=== PATIENT | female | born 1995 | race Caucasian/White ===

== ENCOUNTER 2020-06-10 07:46 | Emergency (ER) | payer OTHER, SELFPAY ==
--- NOTE | 2020-06-10 08:52 | ED.ALLEREA ---
HPI - Allergic Reaction General Chief complaint: Allergic Reaction Stated complaint: allergic reaction Time Seen by Provider: 06/10/20 08:33 Source: patient Mode of arrival: ambulatory Limitations: no limitations History of Present Illness HPI narrative: no known exposures but developed swelling of eyes and upper lip last night took a bendaryl and the eye swelling remains, no resp issus, no swallowing issues MD complaint: facial swelling Onset (ago): hour(s) (last night) Exposure: unknown Symptoms: facial swelling and lip swelling Severity: mild Treatment prior to arrival: benadryl Previous Allergic Reaction History: none Related Data Home Medications Medication Instructions Recorded Confirmed albuterol sulfate mg INHALATION 04/14/20 04/14/20 albuterol sulfate 90 mcg/actuation 2 puff INHALATION Q4H PRN 04/14/20 04/14/20 aerosol inhaler cetirizine 10 mg tablet 10 mg PO DAILY 04/14/20 04/14/20 fluticasone propionate 110 INHALATION 04/14/20 04/14/20 mcg/actuation HFA aerosol inhaler norelgestromin 150 mcg-e.estradiol 1 patch TOPICAL QWEEK 04/14/20 04/14/20 35 mcg/24 hr weekly transderm patch Previous Rx's Medication Instructions Recorded meloxicam 15 mg tablet 15 mg PO DAILY #10 tab 04/14/20 famotidine [Pepcid] 20 mg PO DAILY PRN #30 tab 06/10/20 prednisone 40 mg PO DAILY 4 Days #8 tab 06/10/20 Allergies Allergy/AdvReac Type Severity Reaction Status Date / Time shellfish derived Allergy Severe ANAPHYLAXIS Verified 06/10/20 09:00 amoxicillin [AMOXICILLIN] Allergy Mild RASH Verified 06/10/20 09:00 nut - unspecified [nut] Allergy Unknown + ALLERGY Verified 06/10/20 09:00 TEST cats Allergy Unknown Unknown Uncoded 06/10/20 09:00 dogs Allergy Unknown Unknown Uncoded 06/10/20 09:00 enviromental Allergy Unknown Unknown Uncoded 06/10/20 09:00 nuts Allergy Unknown Unknown Uncoded 06/10/20 09:00 shellfish Allergy Unknown anaphylaxis Uncoded 07/13/19 00:00 Review of Systems Review of Systems: Constitutional : No Fever, No Chills ENT/Mouth : positive mild lip swelling, No Hoarseness, No Swallowing Difficulty Eyes: No Eye Pain, pos Swelling, No Redness Cardiovascular : No Chest Pain, No SOB Respiratory : No Cough, No Sputum, No Wheezing, No Smoke Exposure, No Dyspnea Gastrointestinal : No Nausea, No Vomiting, No Diarrhea, No abdominal Pain Genitourinary : No Dysuria, No Urinary Frequency, No Hematuria Musculoskeletal : No joint pain, No Myalgias, No Joint Swelling Skin : No Skin Lesions, no rash Neuro : No Weakness, No Numbness, No Headache Psych : No Anxiety/Panic, No Depression Heme/Lymph: No Bruising, No Lymphadenopathy Endocrine : No Polyuria, No Polydipsia All other systems reviewed and are negative [facility] Past Medical History Attestation statement: The following information was validated with the patient. Medical History Asthma Neck pain Social History Social History Smoking Status: Never smoker Physical Exam Vital Signs: Appearance: Alert. Oriented X3. No acute distress. Eyes: Pupils equal, round and reactive to light. mild swelling periorbital areas bilaterally ENT: Pharynx normal now intra oral swelling upper lip mildly swollen Neck: Normal inspection. Neck supple. CVS: Normal heart rate and rhythm. Pulses normal. Respiratory: No respiratory distress. Breath sounds normal. Abdomen: Soft and nontender. Skin: Skin warm and dry. Normal skin color. Normal skin turgor. No rash Extremities: No lower extremity edema. No calf ttp Neuro: Oriented X 3. No motor deficit. No sensory deficit. MDM - Allergic Reaction MDM Narrative Medical decision making narrative: 24 yo female with hx of asthma noted eye swelling and lip swelling last night - no known exposure, no resp issues took benadryl with no relief, at this time not toxic clear lungs, no intra oral swelling - will start on steroids and pepcid, given precautions to return Discharge Plan Discharge Clinical Impression: Allergic reaction Qualifiers: Encounter type: initial encounter Qualified Code(s): T78.40XA - Allergy, unspecified, initial encounter Patient Disposition: Home, Self-Care Instructions: Allergies (ED) Additional Instructions: return to ED for any worsening symptoms or concerns Prescriptions: New prednisone 20 mg tablet 40 mg PO DAILY 4 Days Qty: 8 RF: 0 famotidine [Pepcid] 20 mg tablet 20 mg PO DAILY PRN (Reason: Allergic Symptoms) Qty: 30 RF: 0 No Action albuterol sulfate 2.5 mg /3 mL (0.083 %) solution for nebulization inhalation RF: 0 Flovent HFA 110 mcg/actuation HFA aerosol inhaler inhalation RF: 0 albuterol sulfate 90 mcg/actuation HFA aerosol inhaler 2 puff inhalation Q4H PRNRF: 0 cetirizine 10 mg tablet 10 mg PO DAILY RF: 0 Xulane 150-35 mcg/24 hr patch weekly 1 patch topical QWEEK RF: 0 meloxicam 15 mg tablet 15 mg PO DAILY Qty: 10 RF: 0 Stand Alone Forms: Work/School Release
[2020-06-10 08:57] VITALS: BP 133/78; PULSE 77; RESP 18; TEMP 36.4; O2SAT 99; BMI 40.9
[2020-06-10] MEDS: Famotidine 20 MG TABLET PO (09:05)
[2020-06-10] MEDS: predniSONE 20 MG TABLET 60 MG PO (09:06)
== END 2020-06-10 09:10 | disposition home or self-care (01) ==
LOC: HO.ED 09:02
PROVIDERS: Emergency Provider Emergency Medicine; PCP Internal Medicine
DX: T78.40XA Allergy, unspecified, initial encounter (principal); R22.0 Localized swelling, mass and lump, head; X58.XXXA Exposure to other specified factors, initial encounter; J45.909 Unspecified asthma, uncomplicated; Z79.899 Other long term (current) drug therapy
CPT/HCPCS: 99283

== ENCOUNTER 2020-07-05 10:44 | Outpatient (REF) | payer OTHER, SELFPAY | END 2020-07-05 10:45 | disposition home or self-care (01) | LOC: HO.LAB 10:44 | PROVIDERS: Visit Provider Nurse Practitioner Family | DX: J02.9 Acute pharyngitis, unspecified (principal); Z20.822 Contact with and (suspected) exposure to COVID-19 | CPT/HCPCS: 36415; 87071; 87147; U0003; U0005 ==

== ENCOUNTER 2020-07-05 10:51 | Outpatient (REF) | payer OTHER, SELFPAY ==
[2020-07-05 14:39] LABS: Monotest Negative (Negative)
[2020-07-06 05:12] LABS: EBV-VCA IgM Ab <36.00 U/mL
== END 2020-07-05 10:52 | disposition home or self-care (01) ==
LOC: HO.HMGCLDS 10:51
PROVIDERS: PCP Internal Medicine; Visit Provider Nurse Practitioner Family
DX: J02.9 Acute pharyngitis, unspecified (principal); Z01.84 Encounter for antibody response examination
CPT/HCPCS: 36415; 86308; 86664; 86665

== ENCOUNTER 2020-08-12 09:10 | Outpatient (REF) | payer OTHER, SELFPAY ==
[2020-08-16 10:23] LABS: TS Negative Control Passed; TS Panel A 0; TS Panel B 0; TS Positive Control Passed; TSpotTB Negative (SeeBelow)
== END 2020-08-12 09:11 | disposition home or self-care (01) ==
LOC: HO.HMGCLDS 09:10
PROVIDERS: PCP Internal Medicine; Visit Provider Nurse Practitioner Family
DX: Z02.1 Encounter for pre-employment examination (principal)
CPT/HCPCS: 36415; 86481

== ENCOUNTER 2020-09-14 16:11 | Emergency (ER) | payer OTHER, SELFPAY ==
[2020-09-14 16:20] VITALS: BP 131/63; PULSE 88; RESP 20; TEMP 36.8; O2SAT 100; BMI 39.6
--- NOTE | 2020-09-14 19:40 | PC.NURSE ---
pt left without being seen
== END 2020-09-14 19:55 | disposition left against medical advice (07) ==
PROVIDERS: Emergency Provider Emergency Medicine; PCP Internal Medicine
DX: R21 Rash and other nonspecific skin eruption (principal)
CPT/HCPCS: 99281; 99282

== ENCOUNTER 2020-09-17 11:49 | Emergency (ER) | payer OTHER, SELFPAY ==
--- NOTE | ~2020-09-17 | US_ITS ---
EXAMINATION: US PELVIS TRANSABDOMINAL US PELVIS TRANSVAGINAL US PELVIS OVARIAN DOPPLER CLINICAL INFORMATION: Pelvic pain. Rule out ovarian torsion. COMPARISON: CT abdomen and pelvis of 09/21/2009. TECHNIQUE: Real-time scanning of the pelvis is acquired via transabdominal and transvaginal approach. Dedicated color and spectral Doppler evaluation of the ovaries is acquired. FINDINGS: An anteverted uterus is normal in size measuring 8.6 x 4.0 x 4.8 cm in length (from fundus to the external cervical os), AP and transverse dimensions respectively. An intrauterine device is in place and appears to be in appropriate position. Endometrial stripe thickness is 0.9 cm. Myometrial echotexture is homogeneous. No focal myometrial mass. The ovaries could be identified only by transabdominal approach. Right ovary measures 2.9 x 1.5 x 2.1 cm. The left ovary measures 3.1 x 1.4 x 1.6 cm. On grayscale images the ovaries are normal in size and appearance. On color Doppler evaluation bilateral intraovarian normal-appearing arterial and venous blood flow is documented. There is no evidence of adnexal mass or free fluid. US/US pelvic ovarian doppler IMPRESSION: 1. No evidence of active ovarian torsion. Normal sonographic appearance of the ovaries at this time. 2. Intrauterine device appears to be in appropriate position.
--- NOTE | ~2020-09-17 | US_ITS ---
EXAMINATION: US PELVIS TRANSABDOMINAL US PELVIS TRANSVAGINAL US PELVIS OVARIAN DOPPLER CLINICAL INFORMATION: Pelvic pain. Rule out ovarian torsion. COMPARISON: CT abdomen and pelvis of 09/21/2009. TECHNIQUE: Real-time scanning of the pelvis is acquired via transabdominal and transvaginal approach. Dedicated color and spectral Doppler evaluation of the ovaries is acquired. FINDINGS: An anteverted uterus is normal in size measuring 8.6 x 4.0 x 4.8 cm in length (from fundus to the external cervical os), AP and transverse dimensions respectively. An intrauterine device is in place and appears to be in appropriate position. Endometrial stripe thickness is 0.9 cm. Myometrial echotexture is homogeneous. No focal myometrial mass. The ovaries could be identified only by transabdominal approach. Right ovary measures 2.9 x 1.5 x 2.1 cm. The left ovary measures 3.1 x 1.4 x 1.6 cm. On grayscale images the ovaries are normal in size and appearance. On color Doppler evaluation bilateral intraovarian normal-appearing arterial and venous blood flow is documented. There is no evidence of adnexal mass or free fluid. US/US pelvic complete IMPRESSION: 1. No evidence of active ovarian torsion. Normal sonographic appearance of the ovaries at this time. 2. Intrauterine device appears to be in appropriate position.
--- NOTE | ~2020-09-17 | US_ITS ---
EXAMINATION: US PELVIS TRANSABDOMINAL US PELVIS TRANSVAGINAL US PELVIS OVARIAN DOPPLER CLINICAL INFORMATION: Pelvic pain. Rule out ovarian torsion. COMPARISON: CT abdomen and pelvis of 09/21/2009. TECHNIQUE: Real-time scanning of the pelvis is acquired via transabdominal and transvaginal approach. Dedicated color and spectral Doppler evaluation of the ovaries is acquired. FINDINGS: An anteverted uterus is normal in size measuring 8.6 x 4.0 x 4.8 cm in length (from fundus to the external cervical os), AP and transverse dimensions respectively. An intrauterine device is in place and appears to be in appropriate position. Endometrial stripe thickness is 0.9 cm. Myometrial echotexture is homogeneous. No focal myometrial mass. The ovaries could be identified only by transabdominal approach. Right ovary measures 2.9 x 1.5 x 2.1 cm. The left ovary measures 3.1 x 1.4 x 1.6 cm. On grayscale images the ovaries are normal in size and appearance. On color Doppler evaluation bilateral intraovarian normal-appearing arterial and venous blood flow is documented. There is no evidence of adnexal mass or free fluid. US/US transvaginal IMPRESSION: 1. No evidence of active ovarian torsion. Normal sonographic appearance of the ovaries at this time. 2. Intrauterine device appears to be in appropriate position.
[2020-09-17 12:08] VITALS: BP 121/87; PULSE 85; RESP 12; TEMP 36.9; O2SAT 97; BMI 41.3
[2020-09-17 12:42] LABS: Glucose Urine UA NEG (NEG); Leukocyte Esterase Urine NEG (NEG); Nitrite Urine NEG (NEG); PH 6.5 (5.0-8.0); Specific Gravity - Urine 1.015 (1.005-1.025); Urine Blood TRACE (NEG); Urine Ketones NEG (NEG); Urine Protein NEG (NEG-TRACE)
[2020-09-17 12:43] LABS: Appearance Urine HAZY; Color Urine YELLOW
[2020-09-17 12:44] LABS: UPreg QC Valid YES; Urine Pregnancy NEGATIVE (NEGATIVE)
[2020-09-17 13:00] LABS: RBC Urine 0-2 /HPF (0); Squamous Epithelial Cell Urine TRACE /LPF; WBC Urine 0-2 /HPF (0-4)
[2020-09-17 13:01] LABS: Amorphous Sediment Urine 1+ /LPF; Mucus Urine 1+ /LPF
--- NOTE | 2020-09-17 14:00 | ED_ITS ---
HPI - Abdominal Pain General Chief Complaint: Abdominal Pain Stated Complaint: abd pain Time Seen by Provider: 09/17/20 13:59 Source: patient Mode of arrival: ambulatory Limitations: no limitations History of Present Illness HPI narrative: 24-year-old female below noted past medical history presenting today with complaint of states she has had pelvic pain over the suprapubic region for the past several days states there is no vaginal bleeding. States she has family history of ovarian cyst and she is concerned she may have this, additionally else over the past couple days she has noticed some yellowish vaginal discharge without any itching or smell. States she is in a monogamous relationship and she has no concern for STI. She denies any abdominal pain, nausea, vomiting, diarrhea or dysuria. MD elicited complaint: other (Pelvic pain) Pertinent past history: none Location: suprapubic Severity: mild Quality: aching Migration to: no migration Exacerbating factors: nothing Relieving factors: nothing Treatments prior to arrival: other (Has not tried anything) Related Data Home Medications Medication Instructions Recorded Confirmed albuterol sulfate mg INHALATION 04/14/20 04/14/20 albuterol sulfate 90 mcg/actuation 2 puff INHALATION Q4H PRN 04/14/20 04/14/20 aerosol inhaler cetirizine 10 mg tablet 10 mg PO DAILY 04/14/20 04/14/20 fluticasone propionate 110 INHALATION 04/14/20 04/14/20 mcg/actuation HFA aerosol inhaler norelgestromin 150 mcg-e.estradiol 1 patch TOPICAL QWEEK 04/14/20 04/14/20 35 mcg/24 hr weekly transderm patch Previous Rx's Medication Instructions Recorded meloxicam 15 mg tablet 15 mg PO DAILY #10 tab 04/14/20 metronidazole [Flagyl] 500 mg PO BID #14 tab 09/17/20 Allergies Allergy/AdvReac Type Severity Reaction Status Date / Time shellfish derived Allergy Severe ANAPHYLAXIS Verified 09/17/20 12:14 amoxicillin [AMOXICILLIN] Allergy Mild RASH Verified 09/17/20 12:14 nut - unspecified [nut] Allergy Unknown + ALLERGY Verified 09/17/20 12:14 TEST cats Allergy Unknown Unknown Uncoded 09/17/20 12:14 dogs Allergy Unknown Unknown Uncoded 09/17/20 12:14 enviromental Allergy Unknown Unknown Uncoded 09/17/20 12:14 nuts Allergy Unknown Unknown Uncoded 09/17/20 12:14 shellfish Allergy Unknown anaphylaxis Uncoded 09/17/20 12:14 Review of Systems Review of Systems Constitutional: No Weight loss, No Fever, No Chills, No Night Sweats, No Fatigue, No Malaise ENT/Mouth: No Hearing loss, No Ear Pain, No Nasal Congestion, No Sinus Pain, No Hoarseness, No sore throat, No Rhinorrhea, No Swallowing Difficulty Eyes: No Eye Pain, No Swelling, No Redness, No Foreign Body, No Discharge, No Vision Changes Cardiovascular: No Chest Pain, No SOB, No Dyspnea on Exertion, No Orthopnea, No Edema, No Palpitations Respiratory: No Cough, No Sputum, No Wheezing, No Smoke Exposure, No Dyspnea Gastrointestinal: No Nausea, No Vomiting, No Diarrhea, No Constipation, No abdominal Pain, No Hematochezia, No Melena Genitourinary: As noted per HPI, No Flank Pain, No Urinary Flow Changes, No Hesitancy Musculoskeletal: No joint pain, No Myalgias, No Joint Swelling Skin: No Skin Lesions, No rash Neuro: No Weakness, No Numbness, No Paresthesias, No Loss of Consciousness, No Dizziness, No Headache Psych: No Anxiety/Panic, No Depression, No SI/HI/AH/VH, No Social Issues Heme/Lymph: No Bruising, No Bleeding,No Lymphadenopathy Endocrine: No Polyuria, No Polydipsia, No Temperature Intolerance Yes all other systems are reviewed and are negative Physical Exam Vital Signs: Vital Signs: Last Vital Signs Temp 98.3 F 09/17/20 16:21 Pulse 81 09/17/20 16:21 Resp 18 09/17/20 16:21 BP 134/87 09/17/20 16:21 Pulse Ox 99 09/17/20 16:21 Body Mass Index 41.3 Reviewed Const: Other: Patient's primary RN was present to assist me/chaperoned me doing a pelvic exam to obtain swabs. General: cooperative and healthy appearing; No acute distress or intoxicated appearing Nutritional Appearance: average body habitus Orientation/consciousness: patient oriented x3 HENMT: Head: Yes normal to inspection Ears: hearing grossly normal bilaterally Eyes: General: appearance normal, both eyes and all related structures Visual Gray: normal visual gray by confrontation Neck: Neck: Yes normal visual inspection, No positive Brudzinski's sign, No po sitive Kernig's sign and No tender Thyroid: Thyroid normal Chest: Chest palpation & inspection: normal inspection of the chest Resp: Effort & Inspection: normal respiratory effort Auscultation: clear to auscultation bilaterally Cardio: Jugular venous distension: no JVD Rhythm: regular rhythm Heart sounds: S1 normal heart sound present and S2 normal heart sound present GI: Inspection: Yes normal to inspection Palpation (GI): Soft to palpation Percussion: Yes normal to percussion Auscultation: normal bowel sounds : Other: No cervical motion tenderness Swabs obtained. General: Yes no CVA tenderness Speculum Exam - Vagina: normal palpation and other (Scant/mucousy/yellowish discharge in the vaginal vault. No TTP.) Speculum Exam - Cervix: normal appearance of the cervix and normal palpation Bimanual exam- vagina & uterus: normal palpation and normal palpation Back/Spine/Pelvis: Back: no CVA tenderness Skin: General skin exam: no rashes or lesions noted Neuro: General: patient oriented x3 Extrem: General: Yes normal to inspection Course Course Course Narrative: AP an exam consistent with BV. CT NG swabs obtained she declined empiric treatment would like to wait for results. Given dose of Diflucan here 150 mg. Will discharge home with Flagyl p.o. she declined vaginal cream prefers pills. Will give her Flagyl 500 mg 1 tab b.i.d. for 7 days. Advised to abstain from any further sexual activity until she gets the results if she does not hear from us in 3 days she can contact her primary care to get the results of her testing. She should go to her linesperson for full panel STI testing and further monitoring and treatment. She verbalized understanding. She is overall nontoxic appearing. Vitals are stable. Labs are overall stable. No evidence of PID. Stable for discharge. MDM - Abdominal Pain Lab Data Result diagrams: 09/17/20 15:22 09/17/20 15:22 Labs: Lab Results 09/17/20 09/17/20 09/17/20 Range/Units 12:23 12:23 15:22 WBC 9.4 (4.8-10.8) X10*3/uL RBC 4.88 (4.20-5.50) X10*6/uL Hgb 14.7 (12.0-16.0) g/dl Hct 44.2 (37-47) % MCV 90.6 (80-98) fL MCH 30.1 (27.0-33.0) pg MCHC 33.3 (31.0-35.0) g/dl RDW 12.4 (11.0-16.0) % Plt Count 426 H (160-400) X10*3/uL MPV 9.0 L (9.4-12.3) fL Immature Gran % (Auto) 0.3 (0.0-0.4) % Neut % (Auto) 51.8 (45-73) % Lymph % (Auto) 26.5 (20-40) % [place] % (Auto) 8.8 (2-11) % Eos % (Auto) 12.3 H (0-4) % Baso % (Auto) 0.3 (0-2) % Lymph # (Auto) 2.5 (1.2-4.9) X10*3/uL [place] # (Auto) 0.8 (0.1-1.2) X10*3/uL Eos # (Auto) 1.2 H (0.0-0.4) X10*3/uL Baso # (Auto) 0.0 (0.0-0.2) X10*3/uL Abs Immat Gran (auto) 0.03 (0.00-0.03) X10*3/uL Absolute Neuts (auto) 4.9 (2.0-8.3) X10*3/uL Absolute Nucleated RBC 0.000 (0.0-0.012) X10*3/uL Nucleated RBC % (auto) 0.0 (0.0-0.2) /100WBC Sodium (135-145) mmol/L Potassium (3.3-5.1) mmol/L Chloride (96-108) mmol/L Carbon Dioxide (22-29) mmol/L Anion Gap (12-20) BUN (9-16) mg/dL Creatinine (0.5-1.4) mg/dL Estim Creat Clear Calc Estimated GFR Random Glucose (60-115) mg/dL Calcium (8.4-10.2) mg/dL Total Bilirubin (0.0-1.0) mg/dL AST (5-31) U/L ALT (0-31) U/L Alkaline Phosphatase (39-117) U/L Total Protein (6.5-8.0) g/dL Albumin (3.5-5.0) g/dL Urine Color YELLOW Urine Appearance HAZY Urine pH 6.5 (5.0-8.0) Ur Specific [place] 1.015 (1.005-1.025) Urine Protein NEG (NEG-TRACE) MG/DL Urine Glucose (UA) NEG (NEG) MG/DL Urine Ketones NEG (NEG) MG/DL Urine Blood TRACE (NEG) Urine Nitrite NEG (NEG) Ur Leukocyte Esterase NEG (NEG) Urine RBC 0-2 (0) /HPF Urine WBC 0-2 (0-4) /HPF Ur Squamous Epith Cells TRACE /LPF Amorphous Sediment 1+ /LPF Urine Bacteria Not Reportable Urine Mucus 1+ /LPF Urine Test NEGATIVE (NEGATIVE) 09/17/20 Range/Units 15:22 WBC (4.8-10.8) X10*3/uL RBC (4.20-5.50) X10*6/uL Hgb (12.0-16.0) g/dl Hct (37-47) % MCV (80-98) fL MCH (27.0-33.0) pg MCHC (31.0-35.0) g/dl RDW (11.0-16.0) % Plt Count (160-400) X10*3/uL MPV (9.4-12.3) fL Immature Gran % (Auto) (0.0-0.4) % Neut % (Auto) (45-73) % Lymph % (Auto) (20-40) % [place] % (Auto) (2-11) % Eos % (Auto) (0-4) % Baso % (Auto) (0-2) % Lymph # (Auto) (1.2-4.9) X10*3/uL [place] # (Auto) (0.1-1.2) X10*3/uL Eos # (Auto) (0.0-0.4) X10*3/uL Baso # (Auto) (0.0-0.2) X10*3/uL Abs Immat Gran (auto) (0.00-0.03) X10*3/uL Absolute Neuts (auto) (2.0-8.3) X10*3/uL Absolute Nucleated RBC (0.0-0.012) X10*3/uL Nucleated RBC % (auto) (0.0-0.2) /100WBC Sodium 141 (135-145) mmol/L Potassium 4.2 (3.3-5.1) mmol/L Chloride 104 (96-108) mmol/L Carbon Dioxide 26 (22-29) mmol/L Anion Gap 15 (12-20) BUN 10 (9-16) mg/dL Creatinine 0.64 (0.5-1.4) mg/dL Estim Creat Clear Calc 131.6 Estimated GFR > 60 Random Glucose 73 (60-115) mg/dL Calcium 9.8 (8.4-10.2) mg/dL Total Bilirubin 0.3 (0.0-1.0) mg/dL AST 19 (5-31) U/L ALT 35 H (0-31) U/L Alkaline Phosphatase 93 (39-117) U/L Total Protein 7.8 (6.5-8.0) g/dL Albumin 4.5 (3.5-5.0) g/dL Urine Color Urine Appearance Urine pH (5.0-8.0) Ur Specific [place] (1.005-1.025) Urine Protein (NEG-TRACE) MG/DL Urine Glucose (UA) (NEG) MG/DL Urine Ketones (NEG) MG/DL Urine Blood (NEG) Urine Nitrite (NEG) Ur Leukocyte Esterase (NEG) Urine RBC (0) /HPF Urine WBC (0-4) /HPF Ur Squamous Epith Cells /LPF Amorphous Sediment /LPF Urine Bacteria Urine Mucus /LPF Urine Test (NEGATIVE) Imaging Data Pelvic/ovarian Doppler: Radiologist's impression: [address] [id number] ReportSigned Patient: Crys Medel [facility]#: [id number]: 1995Acct: [id number]/Sex: 24 / FADM Date: 09/17/20Loc: [address]: Ordering Physician: Clayton Owusu NP Date of Service: 09/17/20 Procedure(s): US pelvic ovarian doppler Accession Number(s): [id number] cc: OwusuClayton [facility] [employer]~ EXAMINATION: US PELVIS TRANSABDOMINAL US PELVIS TRANSVAGINAL US PELVIS OVARIAN DOPPLER CLINICAL INFORMATION: Pelvic pain. Rule out ovarian torsion. COMPARISON: CT abdomen and pelvis of 09/21/2009. TECHNIQUE: Real-time scanning of the pelvis is acquired via transabdominal and transvaginal approach. Dedicated color and spectral Doppler evaluation of the ovaries is acquired. FINDINGS: An anteverted uterus is normal in size measuring 8.6 x 4.0 x 4.8 cm in length (from fundus to the external cervical os), AP and transverse dimensions respectively. An intrauterine device is in place and appears to be in appropriate position. Endometrial stripe thickness is 0.9 cm. Myometrial echotexture is homogeneous. No focal myometrial mass. The ovaries could be identified only by transabdominal approach. Right ovary measures 2.9 x 1.5 x 2.1 cm. The left ovary measures 3.1 x 1.4 x 1.6 cm. On grayscale images the ovaries are normal in size and appearance. On color Doppler evaluation bilateral intraovarian normal-appearing arterial and venous blood flow is documented. There is no evidence of adnexal mass or free fluid. US/US pelvic ovarian doppler IMPRESSION: 1. No evidence of active ovarian torsion. Normal sonographic appearance of the ovaries at this time. 2. Intrauterine device appears to be in appropriate position. Dictated By:STEWART RIVERA MDSigned By:<Electronically signed by STEWART RIVERA MD in OV>09/17/20 1557 DD/ 1407TD/TT: Quality Audit Representative: AP Discharge Plan Discharge Clinical Impression: Vaginitis Patient Disposition: Home, Self-Care Instructions: Bacterial Vaginosis (ED) Additional Instructions: Your blood work was overall okay Urine test did not show any evidence of infection Her test was negative Your ultrasound did not show any evidence of ovarian cyst, torsion and shows that the IUD was in proper place. You need to Take the full course of antibiotic as she was prescribed Although our suspicions are low for STD as you indicate, you have declined to get empirically (treatment before the results) treated and elected to await the results of your vaginal swabs. This may take 2-3 days to result we will call you with the results only if positive and start you on additional antibiotics if we need to. In the meantime drink plenty of fluids take the full course of the medication as prescribed. 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 Follow up with her primary doctor that Thank you Prescriptions: New metronidazole [Flagyl] 500 mg tablet 500 mg PO BID Qty: 14 RF: 0 No Action albuterol sulfate 2.5 mg /3 mL (0.083 %) solution for nebulization inhalation RF: 0 Flovent HFA 110 mcg/actuation HFA aerosol inhaler inhalation RF: 0 albuterol sulfate 90 mcg/actuation HFA aerosol inhaler 2 puff inhalation Q4H PRNRF: 0 cetirizine 10 mg tablet 10 mg PO DAILY RF: 0 Xulane 150-35 mcg/24 hr patch weekly 1 patch topical QWEEK RF: 0 meloxicam 15 mg tablet 15 mg PO DAILY Qty: 10 RF: 0 Referrals: Antoni Pate MD [Primary Care Provider] - 5 days Interventions: ED Discharge Assessment Last Done: 09/17/20 16:37 Discharge Date/Time: 09/17/20 16:44 [facility] Past Medical History Medical History Asthma Neck pain Social History Social History Alcohol intake: never Smoking Status: Never smoker Use of substances other than those prescribed or required for medical reasons: No Advance Directives: No Advance Directives Information Provided: No
--- NOTE | 2020-09-17 14:08 | PC.NURSE ---
patient a&ox3, c/o 03/05 pelvic area pain, pt states she has never had this pain in the past, denies n/v, awaiting provider, urine completed in triage, will continue to monitor.
[2020-09-17 15:38] LABS: MANUAL DIFF FLAG NO
[2020-09-17 15:41] LABS: Basophils Percent Auto 0.3 % (0-2); Eosinophils Absolute Auto 1.2 X10*3/uL (0.0-0.4); Eosinophils Percent Auto 12.3 % (0-4); Hematocrit 44.2 % (37-47); Hemoglobin 14.7 g/dl (12.0-16.0); Imm Gran Abs Auto 0.03 X10*3/uL (0.00-0.03); Imm Gran Pct Auto 0.3 % (0.0-0.4); Lymphocytes Absolute Auto 2.5 X10*3/uL (1.2-4.9); Lymphocytes Percent Auto 26.5 % (20-40); Mean Corpuscular HGB Conc 33.3 g/dl (31.0-35.0); Mean Corpuscular Hemoglobin 30.1 pg (27.0-33.0); Mean Corpuscular Volume 90.6 fL (80-98); Monocytes Absolute Auto 0.8 X10*3/uL (0.1-1.2); Monocytes Percent Auto 8.8 % (2-11); Neutrophils Absolute Auto 4.9 X10*3/uL (2.0-8.3); Neutrophils Percent Auto 51.8 % (45-73); Platelet Count 426 X10*3/uL (160-400); Red Blood Count 4.88 X10*6/uL (4.20-5.50); Red Cell Distribution Width 12.4 % (11.0-16.0); White Blood Count 9.4 X10*3/uL (4.8-10.8)
[2020-09-17 16:02] LABS: Alanine Aminotransferase 35 U/L (0-31); Albumin Level 4.5 g/dL (3.5-5.0); Alkaline Phosphatase 93 U/L (39-117); Anion Gap 15 (12-20); Aspartate Amino Transferase 19 U/L (5-31); Bilirubin Total 0.3 mg/dL (0.0-1.0); Blood Urea Nitrogen 10 mg/dL (9-16); Calcium 9.8 mg/dL (8.4-10.2); Carbon Dioxide 26 mmol/L (22-29); Chloride 104 mmol/L (96-108); Creatinine Clr Calc Pharmacy 131.6; Estimated Glomerular Filt Rate > 60; Glucose Random 73 mg/dL (60-115); Potassium 4.2 mmol/L (3.3-5.1); Sodium 141 mmol/L (135-145); Total Protein 7.8 g/dL (6.5-8.0)
--- NOTE | 2020-09-17 16:20 | PC.NURSE ---
this nurse assisted provider to do internal exam, swabs obtained and sent to lab, vss, will continue to monitor.
[2020-09-17 16:21] VITALS: BP 134/87; PULSE 81; RESP 18; TEMP 36.8; O2SAT 99
[2020-09-17] MEDS: Fluconazole 150 MG TABLET PO (16:42)
[2020-09-18 09:57] LABS: BV Int Neg Control Negative (Negative); BV Int Pos Control Positive (Positive)
[2020-09-18 10:38] LABS: CT PCR NOT DETECTED (Not Detect.); NG PCR NOT DETECTED (Not Detect.)
== END 2020-09-17 16:44 | disposition home or self-care (01) ==
PROVIDERS: Nurse Practitioner Primary Care; Emergency Provider Emergency Medicine; PCP Internal Medicine
DX: N76.0 Acute vaginitis (principal); R10.2 Pelvic and perineal pain
CPT/HCPCS: 36415; 76830; 76856; 80053; 81001; 81025; 85025; 87480; 87491; 87510; 87591; 87660; 93975; 99284

== ENCOUNTER 2021-04-06 14:07 | Outpatient (REF) | payer OTHER, SELFPAY ==
--- NOTE | ~2021-04-06 | XR_ITS ---
EXAMINATION: XR LUMBOSACRAL SPINE CLINICAL INFORMATION: Pain COMPARISON: None TECHNIQUE: Three views of the lumbosacral spine. FINDINGS: The vertebral bodies and posterior elements are normal. The disc spaces are preserved and the vertebral alignment is normal. The paraspinal soft tissues are normal. XR/XR lumbar spine 2-3V IMPRESSION: Unremarkable examination.
== END 2021-04-06 14:08 | disposition home or self-care (01) ==
LOC: HO.HMGCX 14:07
PROVIDERS: PCP Internal Medicine; Visit Provider Internal Medicine
DX: M54.50 Low back pain, unspecified (principal)
CPT/HCPCS: 72100

== ENCOUNTER 2021-05-04 13:00 | Outpatient (RCR) | payer OTHER, SELFPAY ==
--- NOTE | 2021-04-19 10:42 | MHC.PT.EP ---
[facility] [place] [facility] [place] [facility] [place] [facility] [address] Phyllis Garcia [address] [phone] F: [phone] F: [phone] F: [phone] F: [phone] Physical Therapy Plan of Care Date of Evaluation: Date of Surgery: NA Diagnosis: Chronic low back pain Assessment: Crys is a 25 year old female who was referred to PT chronic low back pain . She denies any trauma or falls. On examination she reports of having 6/10 pain in low back with forward bending, prolonged sitting and standing, presented with decreased lumbar ROM, decreased core strength and altered posture. She demonstrated centralization of symptoms with extension exercises. Due to these impairments she has pain with ADLS like mopping, vacuuming, laundry and playing with her daughter. She would benefit from skilled PT to address the aforementioned impairments so as to enable return to PLOF. Frequency and Duration: The patient will be seen 2/week for 5 weeks Short Term Goals: 1. Pt will have 50% decrease in pain in 2 weeks which will improve her tolerance to standing and sitting. 2. Pt will have all lumbar ROM WNL which will enable her to dress lower body in 3 weeks Long-Term Goals: 1. Pt will demonstrate an increase in muscle strength by 1 grade which will enable to perform her laundry in 4 weeks. 2. Pt will demonstrate good awareness of posture and body mechanics which will enable her to perform mopping and vacuuming without pain in 5 weeks. Treatment Plan: Modalities to reduce pain, spasms and effusion. Manual therapy to restore motion and function. Therapeutic exercise to improve strength and flexibility. Neuromuscular re-education for posture and balance. Therapeutic activities to return to functional activities of daily living. Electronically signed by: Glory Antonio PT DPT Please sign and return to therapist. Thank you for your referral.
--- NOTE | 2021-05-18 08:45 | MHC.PT.DC ---
[facility] [place] [facility] [place] [facility] [place] [facility] [address] Phyllis Garcia [address] [phone] F: [phone] F: [phone] F: [phone] F: [phone] Physical Therapy Discharge Report Diagnosis: Chronic low back pain Date of Surgery: NA Date of Evaluation: 04/19/21 Date of Discharge: 05/18/21 Treatments to Date: 4 Cancellations to Date: 2 No Shows to Date: 3 Discharge Status: Visit Non-compliance Discharge Summary: Crys has not come to PT in 2 weeks. She has had 2 cancellations and 3 no shows. Due to this she is being d/c from therapy for non compliance. Electronically signed by: Glory Antonio, PT DPT Please sign and return to therapist. Thank you for your referral.
== END 2021-05-18 08:48 | disposition home or self-care (01) ==
LOC: HO.PT 13:00
PROVIDERS: PCP Internal Medicine; Visit Provider Internal Medicine
DX: M54.50 Low back pain, unspecified (principal)
CPT/HCPCS: 97110; 97161; 97530

== ENCOUNTER 2021-05-25 10:42 | Emergency (ER) | payer OTHER, SELFPAY ==
--- NOTE | ~2021-05-25 | XR_ITS ---
EXAMINATION: XR CHEST CLINICAL INFORMATION: Fevers COMPARISON: 01/27/2020 TECHNIQUE: Frontal view of the chest was obtained. FINDINGS: No acute finding. No obvious failure or infiltrate. There is no effusion. Mildly low lung volumes. The cardiac silhouette is comparable to previous. The hilar structures are comparable XR/XR chest 1V IMPRESSION: No acute finding
--- NOTE | ~2021-05-25 | CT_ITS ---
EXAMINATION: CT ANGIOGRAM OF THE CHEST WITH AND WITHOUT CONTRAST (CT PULMONARY ANGIOGRAM FOR PE) CLINICAL INFORMATION: Reason for Exam sob, elevated dimer COMPARISON: Chest radiographs 05/25/2021 TECHNIQUE: Prior to contrast administration, noncontrast localization images were obtained. Subsequently, multidetector volumetric imaging was performed from the thoracic inlet to below the diaphragms following the administration of 71 mL Omnipaque 350 intravenous contrast. Sagittal, coronal, and MIP oblique sagittal reformatted images were obtained on the CT workstation, uploaded to PACS, and reviewed. This CT examination was performed using dose optimization techniques as appropriate, variously including the following: *Automated exposure control *Adjustment of mA and/or kV according to patient size (this includes techniques or standardized protocols for targeted exams where dose is matched to indication/reason for exam; i.e. extremities or head) *Use of iterative reconstruction technique Total exam dose-length product 425 mGy-cm FINDINGS: QUALITY OF STUDY/CONTRAST BOLUS: Satisfactory. PULMONARY ARTERIES: No central or segmental pulmonary emboli. THORACIC AORTA: No aneurysm or dissection. LUNG: Low lung volumes. No airspace consolidation or groundglass opacity. No mass or nodularity. Central airways are clear. No bronchiectasis. PLEURA: No pleural effusion or pneumothorax. MEDIASTINUM: Normal heart size. No pericardial effusion. No hilar or mediastinal lymphadenopathy. No evidence of septal bowing or right heart strain. CHEST WALL/AXILLA: No axillary or internal mammary lymphadenopathy. OSSEOUS STRUCTURES: No acute or suspicious osseous abnormality. Incidental intravertebral body hemangioma mid thoracic line, approximately T5. UPPER ABDOMEN: Prior cholecystectomy. No reflux of contrast into the hepatic veins to suggest elevated right heart pressures. CT/CT angio chest PE protocol IMPRESSION: 1. No pulmonary embolism. No thoracic aortic dissection. 2. Low lung volumes. No airspace consolidation, pneumothorax, or effusion. VTE: negative
[2021-05-25 10:59] VITALS: BP 141/85; PULSE 119; RESP 20; TEMP 37.7; O2SAT 98; BMI 41.8
--- NOTE | 2021-05-25 11:39 | ED.URI ---
HPI - URI/Sore Throat General Chief Complaint: Upper Respiratory Symptoms Stated Complaint: sob, cough Time Seen by Provider: 05/25/21 11:06 Source: patient Mode of arrival: ambulatory Limitations: no limitations History of Present Illness HPI Narrative: 25-year-old female who presents with shortness of breath and chest tightness. Patient has a history of asthma and takes oral control pills. Patient states that her symptoms of chest tightness started yesterday and she could only get 2 hours of sleep because her chest felt tight. She only had 2 nebulizer bullets left, she had run out of her prescription, she did use these, and they helped. She did not have an inhaler at home yesterday and she refilled her inhaler prescription today. States she also had chills last night, and she started coughing after the nebulizer treatment. Endorses body aches. Also endorses dysuria and UTI symptoms of increasing frequency and urgency. No hematuria, no vaginal discharge or bleeding. States she had called her PCP for prescription to treat a UTI on , but prescription was never filled. Denies nausea, vomiting, diarrhea, abdominal pain, sore throat, runny nose, headache. Denies unilateral calf pain or swelling, history of blood clots, recent surgeries or car trips Related Data Home Medications Medication Instructions Recorded Confirmed cetirizine 10 mg tablet 10 mg PO DAILY 04/14/20 04/14/20 norelgestromin 150 mcg-e.estradiol 1 patch TOPICAL QWEEK 04/14/20 04/14/20 35 mcg/24 hr weekly transderm patch Previous Rx's Medication Instructions Recorded albuterol sulfate 90 mcg/actuation 2 puff INHALATION Q4H PRN 30 Days 05/24/21 aerosol inhaler #8.5 g fluticasone propionate 110 2 inh INHALATION Q12H #12 g 05/24/21 mcg/actuation HFA aerosol inhaler albuterol sulfate 1.25 mg/3 mL 1.25 mg (3 mL) INHALATION Q4-6H 05/25/21 solution for nebulization PRN #90 ml cephalexin 500 mg tablet 500 mg PO QID 5 Days #20 tab 05/25/21 dexamethasone 6 mg tablet 6 mg PO DAILY 3 Days #3 tab 05/25/21 Allergies Allergy/AdvReac Type Severity Reaction Status Date / Time shellfish derived Allergy Severe ANAPHYLAXIS Verified 04/06/21 14:44 amoxicillin [AMOXICILLIN] Allergy Mild RASH Verified 04/06/21 14:44 nut - unspecified [nut] Allergy Unknown + ALLERGY Verified 04/06/21 14:44 TEST cats Allergy Unknown Unknown Uncoded 04/06/21 13:25 dogs Allergy Unknown Unknown Uncoded 04/06/21 13:25 enviromental Allergy Unknown Unknown Uncoded 04/06/21 13:25 nuts Allergy Unknown Unknown Uncoded 04/06/21 13:25 shellfish Allergy Unknown anaphylaxis Uncoded 04/06/21 13:25 Review of Systems Constitutional: Constitutional: Reports body ache(s), Reports chills, Reports fatigue, Reports fever(s), Denies headache(s), Denies malaise and Denies weakness Eyes: Eyes: Denies diplopia ENT: Denies vertigo, Denies dizziness, Denies otalgia, Denies headache(s), Denies mouth pain, Denies post nasal drip, Denies sinus pain, Denies sinus pressure, Denies sore throat and Denies throat swelling Cardiovascular: Cardiovascular: Denies chest pain, Denies syncope, Denies leg edema, Denies lightheadedness, Denies Loss of Consciousness, Denies palpitations, Reports dyspnea and Reports other (chest tightness) Respiratory: Respiratory: Denies chest congestion, Reports cough, Denies hemoptysis, Denies pain on inspiration, Denies pain with cough, Reports dyspnea, Denies stridor and Reports wheezing Gastrointestinal: Gastrointestinal: Denies abdominal pain, Denies hematochezia, Denies constipation, Denies diarrhea and Denies vomiting Genitourinary: Genitourinary: Denies abnormal vaginal bleeding, Denies hematuria, Reports dysuria, Denies pelvic pain, Denies flank pain, Denies urinary incontinence, Reports urinary urgency, Denies vaginal discharge, Denies vaginal odor and Denies vaginal pruritus Integumentary/Breasts: Skin/Breast: Denies erythema and Denies rash Neurologic: Denies confusion, Denies vertigo, Denies dizziness, Denies syncope, Denies headache(s) and Denies weakness Psychiatric: Psychiatric: Denies anxiety, Denies confusion and Denies depression Endocrine: Endocrine: Reports fatigue and Denies palpitations Allergic/Immunologic: Allergic/Immunologic: Denies throat swelling and Reports wheezing PMFSH Past Medical History Medical History Allergic rhinitis Anxiety Asthma Chronic low back pain Eczema Morbid obesity Neck pain Surgical History H/O cleft lip repair History of appendectomy Family History Family History Maternal Grandfather Alzheimer disease Paternal Grandmother Diabetes Other Mental health disorder Social History Social History Housing: House Alcohol intake: never Patient Tobacco Use Status: Never used Tobacco Second Hand Smoke Exposure: No Advance Directives: No Advance Directives Information Provided: No Patient : No Current occupational status: employed Physical Exam Vital Signs: Vital Signs: Last Vital Signs Temp 99.9 F 05/25/21 10:59 Pulse 110 H 05/25/21 12:47 Resp 16 05/25/21 16:38 BP 109/67 05/25/21 16:38 Pulse Ox 98 05/25/21 10:59 BMI result Body Mass Index 41.8 Const: General: no acute distress, well developed, alert and awake; No confusion Nutritional Appearance: well nourished Orientation/consciousness: patient oriented x3 and No confusion Limitations: no limitations HENMT: Head: Yes normal to inspection, Yes normocephalic and Yes atraumatic Ears: hearing grossly normal bilaterally, external ears normal, TM's normal bilaterally and EAC's normal General nose exam: Normal external nose present Face and sinus: Yes normal facial exam and Yes sinuses nontender Mouth: Normal oral and palatal mucosa present Throat: Yes posterior oropharynx normal Eyes: Conjunctivae: conjunctivae normal Pupils: Equal, round and reactive pupils present EOM: EOMs intact bilaterally Neck: Neck: Yes full ROM, Yes no lymphadenopathy and Yes supple Resp: Effort & Inspection: normal respiratory effort and able to speak in complete sentences Auscultation: clear to auscultation bilaterally, no crackles, no rales, no rhonchi and no wheezes Cardio: Rate: regular rate Rhythm: regular rhythm Heart sounds: S1 normal heart sound present and S2 normal heart sound present GI: Inspection: Yes normal to inspection Palpation (GI): Soft to palpation, nontender, no guarding and not rigid Percussion: Yes normal to percussion Auscultation: normal bowel sounds : General: Yes CVA tenderness on the left Back/Spine/Pelvis: Back: CVA tenderness Skin: General skin exam: no rashes or lesions noted Neuro: General: patient oriented x3 and No confusion Cranial nerves: Yes Equal, round and reactive pupils present Extrem: General: Yes normal to inspection and Yes full ROM Psych: Appearance: grossly normal Affect: normal affect Attitude: cooperative Thought process: Normal thought process present Course Course Course Narrative: 25-year-old female presents for shortness of breath, body aches, is found to be febrile here at 99.9. Patient is tachycardic at 119., has normal respirations and is satting 98% on room air. Patient also endorses UTI symptoms, and has CVA tenderness on the left Patient's shortness of breath could be due to asthma, but she is on oral control pills and I cannot PERC her out Will get labs, troponin, D-dimer, EKG, urine, COVID test. Patient has been vaccinated for COVID, has not had her booster. CXR: FINDINGS: No acute finding. No obvious failure or infiltrate. There is no effusion. Mildly low lung volumes. The cardiac silhouette is comparable to previous. The hilar structures are comparable XR/XR chest 1V IMPRESSION: No acute finding ? Reevaluation(s) Reevaluation #1: Labs show positive COVID, positive urine for UTI, negative troponin and EKG with no ischemic changes, D-dimer is elevated at 242 Will give fluids, give urine test, get CTA If CTA is negative, will treat for UTI and give COVID precautions Reevaluation #2: CT read at 17:45, results below. CT/CT angio chest PE protocol IMPRESSION: ? 1. No pulmonary embolism. No thoracic aortic dissection. 2. Low lung volumes. No airspace consolidation, pneumothorax, or effusion. ? VTE: negative Will treat with cephalexin for UTI, and counseled patient to return if she had worsening fevers or back pain, counseled patient to follow-up with her primary care provider. Out of work for 10 days, stay home, patient isolate, return to the emergency room for chest pain or shortness of breath. Use her albuterol inhaler. Dexamethasone Patient tells me her amoxicillin allergy was a rash, she did not have anaphylaxis to amoxicillin, keflex should be safe Patient verbalized agreement and understanding of the plan and all questions were answered MDM - URI/Sore Throat Lab Data Result diagrams: 05/25/21 12:40 05/25/21 12:40 Labs: Lab Results 05/25/21 05/25/21 05/25/21 Range/Units 12:27 12:28 12:40 WBC (4.8-10.8) X10*3/uL RBC (4.20-5.50) X10*6/uL Hgb (12.0-16.0) g/dl Hct (37.0-47.0) % MCV (80.0-98.0) fL MCH (27.0-33.0) pg MCHC (31.0-35.0) g/dl RDW (11.0-16.0) % Plt Count (160-400) X10*3/uL MPV (9.4-12.3) fL Immature Gran % (Auto) (0.0-0.4) % Neut % (Auto) (45-73) % Lymph % (Auto) (20-40) % [place] % (Auto) (2-11) % Eos % (Auto) (0-4) % Baso % (Auto) (0-2) % Lymph # (Auto) (1.2-4.9) X10*3/uL [place] # (Auto) (0.1-1.2) X10*3/uL Eos # (Auto) (0.0-0.4) X10*3/uL Baso # (Auto) (0.0-0.2) X10*3/uL Abs Immat Gran (auto) (0.00-0.03) X10*3/uL Absolute Neuts (auto) (2.0-8.3) x10*3/uL Absolute Nucleated RBC (0.0-0.012) X10*3/uL Nucleated RBC % (auto) (0.0-0.2) /100WBC D-Dimer High Sensitivty 242 NG/ML Sodium (135-145) mmol/L Potassium (3.3-5.1) mmol/L Chloride (96-108) mmol/L Carbon Dioxide (22-29) mmol/L Anion Gap (12-20) BUN (9-16) mg/dL Creatinine (0.5-1.4) mg/dL Estim Creat Clear Calc Estimated GFR Random Glucose (60-115) mg/dL Calcium (8.4-10.2) mg/dL Total Bilirubin (0.0-1.0) mg/dL AST (5-31) U/L ALT (0-31) U/L Alkaline Phosphatase (39-117) U/L Troponin I High Sens (<3.5-17.0) ng/L Total Protein (6.5-8.0) g/dL Albumin (3.5-5.0) g/dL Beta HCG, Quant mIU/mL Urine Color YELLOW Urine Appearance HAZY Urine pH 6.0 (5.0-8.0) Ur Specific [place] >= 1.030 H (1.005-1.025) Urine Protein NEG (NEG-TRACE) MG/DL Urine Glucose (UA) NEG (NEG) MG/DL Urine Ketones NEG (NEG) MG/DL Urine Blood 1+ H (NEG) Urine Nitrite NEG (NEG) Ur Leukocyte Esterase NEG (NEG) Urine RBC 0-2 (0) /HPF Urine WBC 15-29 H (0-4) /HPF Ur Squamous Epith Cells 2+ /LPF Urine Bacteria 4+ /LPF COVID-19 (CALEB) Positive A (Negative) COVID-19 Clin Com See Note 05/25/21 05/25/21 05/25/21 Range/Units 12:40 12:40 12:40 WBC 5.0 (4.8-10.8) X10*3/uL RBC 4.32 (4.20-5.50) X10*6/uL Hgb 13.2 (12.0-16.0) g/dl Hct 39.8 (37.0-47.0) % MCV 92.1 (80.0-98.0) fL MCH 30.6 (27.0-33.0) pg MCHC 33.2 (31.0-35.0) g/dl RDW 12.1 (11.0-16.0) % Plt Count 259 (160-400) X10*3/uL MPV 9.2 L (9.4-12.3) fL Immature Gran % (Auto) 0.6 H (0.0-0.4) % Neut % (Auto) 73.9 H (45-73) % Lymph % (Auto) 11.6 L (20-40) % [place] % (Auto) 13.3 H (2-11) % Eos % (Auto) 0.4 (0-4) % Baso % (Auto) 0.2 (0-2) % Lymph # (Auto) 0.6 L (1.2-4.9) X10*3/uL [place] # (Auto) 0.7 (0.1-1.2) X10*3/uL Eos # (Auto) 0.0 (0.0-0.4) X10*3/uL Baso # (Auto) 0.0 (0.0-0.2) X10*3/uL Abs Immat Gran (auto) 0.03 (0.00-0.03) X10*3/uL Absolute Neuts (auto) 3.7 (2.0-8.3) x10*3/uL Absolute Nucleated RBC 0.000 (0.0-0.012) X10*3/uL Nucleated RBC % (auto) 0.0 (0.0-0.2) /100WBC D-Dimer High Sensitivty NG/ML Sodium 138 (135-145) mmol/L Potassium 3.5 (3.3-5.1) mmol/L Chloride 106 (96-108) mmol/L Carbon Dioxide 25 (22-29) mmol/L Anion Gap 11 L (12-20) BUN 8 L (9-16) mg/dL Creatinine 0.68 (0.5-1.4) mg/dL Estim Creat Clear Calc 123.5 Estimated GFR > 60 Random Glucose 133 H (60-115) mg/dL Calcium 8.5 D (8.4-10.2) mg/dL Total Bilirubin 0.3 (0.0-1.0) mg/dL AST 16 (5-31) U/L ALT 27 (0-31) U/L Alkaline Phosphatase 82 (39-117) U/L Troponin I High Sens < 3.5 (<3.5-17.0) ng/L Total Protein 7.0 (6.5-8.0) g/dL Albumin 3.9 (3.5-5.0) g/dL Beta HCG, Quant mIU/mL Urine Color Urine Appearance Urine pH (5.0-8.0) Ur Specific [place] (1.005-1.025) Urine Protein (NEG-TRACE) MG/DL Urine Glucose (UA) (NEG) MG/DL Urine Ketones (NEG) MG/DL Urine Blood (NEG) Urine Nitrite (NEG) Ur Leukocyte Esterase (NEG) Urine RBC (0) /HPF Urine WBC (0-4) /HPF Ur Squamous Epith Cells /LPF Urine Bacteria /LPF COVID-19 (CALEB) (Negative) COVID-19 Clin Com 05/25/21 Range/Units 14:44 WBC (4.8-10.8) X10*3/uL RBC (4.20-5.50) X10*6/uL Hgb (12.0-16.0) g/dl Hct (37.0-47.0) % MCV (80.0-98.0) fL MCH (27.0-33.0) pg MCHC (31.0-35.0) g/dl RDW (11.0-16.0) % Plt Count (160-400) X10*3/uL MPV (9.4-12.3) fL Immature Gran % (Auto) (0.0-0.4) % Neut % (Auto) (45-73) % Lymph % (Auto) (20-40) % [place] % (Auto) (2-11) % Eos % (Auto) (0-4) % Baso % (Auto) (0-2) % Lymph # (Auto) (1.2-4.9) X10*3/uL [place] # (Auto) (0.1-1.2) X10*3/uL Eos # (Auto) (0.0-0.4) X10*3/uL Baso # (Auto) (0.0-0.2) X10*3/uL Abs Immat Gran (auto) (0.00-0.03) X10*3/uL Absolute Neuts (auto) (2.0-8.3) x10*3/uL Absolute Nucleated RBC (0.0-0.012) X10*3/uL Nucleated RBC % (auto) (0.0-0.2) /100WBC D-Dimer High Sensitivty NG/ML Sodium (135-145) mmol/L Potassium (3.3-5.1) mmol/L Chloride (96-108) mmol/L Carbon Dioxide (22-29) mmol/L Anion Gap (12-20) BUN (9-16) mg/dL Creatinine (0.5-1.4) mg/dL Estim Creat Clear Calc Estimated GFR Random Glucose (60-115) mg/dL Calcium (8.4-10.2) mg/dL Total Bilirubin (0.0-1.0) mg/dL AST (5-31) U/L ALT (0-31) U/L Alkaline Phosphatase (39-117) U/L Troponin I High Sens (<3.5-17.0) ng/L Total Protein (6.5-8.0) g/dL Albumin (3.5-5.0) g/dL Beta HCG, Quant < 2 mIU/mL Urine Color Urine Appearance Urine pH (5.0-8.0) Ur Specific [place] (1.005-1.025) Urine Protein (NEG-TRACE) MG/DL Urine Glucose (UA) (NEG) MG/DL Urine Ketones (NEG) MG/DL Urine Blood (NEG) Urine Nitrite (NEG) Ur Leukocyte Esterase (NEG) Urine RBC (0) /HPF Urine WBC (0-4) /HPF Ur Squamous Epith Cells /LPF Urine Bacteria /LPF COVID-19 ([facility]) (Negative) COVID-19 Clin Com ECG Data Interpretation: Sinus tachycardia 108, VA interval 142, QRS 92, QTC 410, normal axis, no ST elevations or depressions, no T-wave inversions, no changes from prior EKG Scores [place] PE Heart rate > 100 p/min: 1.5 Score: 1.5 2-tier Risk: unlikely risk (5%) 3-tier Risk: low risk (3.4%) Discharge Plan Discharge Clinical Impression: COVID-19 UTI (urinary tract infection) Qualifiers: Urinary tract infection type: acute cystitis Hematuria presence: without hematuria Qualified Code(s): N30.00 - Acute cystitis without hematuria Patient Disposition: Home, Self-Care Instructions: Urinary Tract Infection in Women (ED), COVID-19 (Coronavirus Disease 2019) (ED) Additional Instructions: You tested positive for COVID today, please stay home in quarantine. Please fill the prescription for cephalexin and take it every 6 hours for the next 5 days. If you have fevers or worsening back pain, these are signs of a kidney infection, you should return to be seen Please push fluids, take Tylenol, rest, use your nebulizer, use it every 4 hours while your awake for the next 2-4 days, I have also prescribed dexamethasone, this should help with her breathing as well. If you have chest pain or shortness of breath, please return to be seen in the emergency room Prescriptions: New albuterol sulfate 1.25 mg/3 mL solution for nebulization 1.25 mg inhalation Q4-6H PRN (Reason: shortness of breath or wheezing) Qty: 90 RF: 0 cephalexin 500 mg tablet 500 mg PO QID 5 Days Qty: 20 RF: 0 dexamethasone 6 mg tablet 6 mg PO DAILY 3 Days Qty: 3 RF: 0 No Action albuterol sulfate 90 mcg/actuation HFA aerosol inhaler 2 puff inhalation Q4H PRN (Reason: bronchospasm) 30 Days Qty: 8.5 RF: 0 fluticasone propionate 110 mcg/actuation HFA aerosol inhaler 2 inh inhalation Q12H Qty: 12 RF: 1 cetirizine 10 mg tablet 10 mg PO DAILY RF: 0 Xulane 150-35 mcg/24 hr patch weekly 1 patch topical QWEEK RF: 0 Stand Alone Forms: Work/School Release
--- NOTE | 2021-05-25 11:56 | ECG_ITS ---
Test Reason : SOB Blood Pressure : / mmHG Vent. Rate : 108 BPM Atrial Rate : 108 BPM P-R Int : 142 ms QRS Dur : 092 ms QT Int : 306 ms P-R-T Axes : 047 052 022 degrees QTc Int : 410 ms Sinus tachycardia Nonspecific T wave abnormality Abnormal ECG When compared with ECG of 02-AUG-2019 08:53, No significant change was found Referred By: Tamie Pearson Electronically Signed By:Wilfred Mariee
[2021-05-25] MEDS: Acetaminophen 325 MG TABLET 650 MG PO (12:24)
[2021-05-25] MEDS: predniSONE 20 MG TABLET 60 MG PO (12:25)
[2021-05-25 12:46] LABS: MANUAL DIFF FLAG NO
[2021-05-25 12:47] VITALS: PULSE 110; RESP 18; O2SAT 99
[2021-05-25] MEDS: Albuterol Sulfate 90 MCG 8 GM INHALER 2 PUFF INHALE (12:47)
[2021-05-25 12:48] LABS: Basophils Percent Auto 0.2 % (0-2); Eosinophils Percent Auto 0.4 % (0-4); Hematocrit 39.8 % (37.0-47.0); Hemoglobin 13.2 g/dl (12.0-16.0); Imm Gran Abs Auto 0.03 X10*3/uL (0.00-0.03); Imm Gran Pct Auto 0.6 % (0.0-0.4); Lymphocytes Absolute Auto 0.6 X10*3/uL (1.2-4.9); Lymphocytes Percent Auto 11.6 % (20-40); Mean Corpuscular HGB Conc 33.2 g/dl (31.0-35.0); Mean Corpuscular Hemoglobin 30.6 pg (27.0-33.0); Mean Corpuscular Volume 92.1 fL (80.0-98.0); Mean Platelet Volume 9.2 fL (9.4-12.3); Monocytes Absolute Auto 0.7 X10*3/uL (0.1-1.2); Monocytes Percent Auto 13.3 % (2-11); Neutrophils Absolute Auto 3.7 x10*3/uL (2.0-8.3); Neutrophils Percent Auto 73.9 % (45-73); Platelet Count 259 X10*3/uL (160-400); Red Blood Count 4.32 X10*6/uL (4.20-5.50); Red Cell Distribution Width 12.1 % (11.0-16.0)
[2021-05-25 12:52] LABS: Appearance Urine HAZY; Color Urine YELLOW; Glucose Urine UA NEG (NEG); Leukocyte Esterase Urine NEG (NEG); Nitrite Urine NEG (NEG); Specific Gravity - Urine >= 1.030 (1.005-1.025); UACC Culture Trigger NO; Urine Blood 1+ (NEG); Urine Ketones NEG (NEG); Urine Protein NEG (NEG-TRACE)
[2021-05-25 12:56] LABS: COVID-19 Test Positive (Negative)
[2021-05-25 12:58] LABS: D Dimer High Sensitivity 242 NG/ML
[2021-05-25 13:03] LABS: Alanine Aminotransferase 27 U/L (0-31); Albumin Level 3.9 g/dL (3.5-5.0); Alkaline Phosphatase 82 U/L (39-117); Anion Gap 11 (12-20); Aspartate Amino Transferase 16 U/L (5-31); Bilirubin Total 0.3 mg/dL (0.0-1.0); Blood Urea Nitrogen 8 mg/dL (9-16); Calcium 8.5 mg/dL (8.4-10.2); Carbon Dioxide 25 mmol/L (22-29); Chloride 106 mmol/L (96-108); Creatinine Clr Calc Pharmacy 123.5; Estimated Glomerular Filt Rate > 60; Glucose Random 133 mg/dL (60-115); Potassium 3.5 mmol/L (3.3-5.1); Sodium 138 mmol/L (135-145)
[2021-05-25 13:09] LABS: Troponin-I High Sensitivity < 3.5 ng/L (<3.5-17.0)
[2021-05-25 13:17] LABS: Squamous Epithelial Cell Urine 2+ /LPF
[2021-05-25 13:18] LABS: Bacteria Urine 4+ /LPF
[2021-05-25 13:20] LABS: RBC Urine 0-2 /HPF (0)
[2021-05-25] MEDS: 0.9 % Sodium Chloride 1,000 ML 999 ML IV (14:48)
[2021-05-25 15:14] LABS: HCG Quantitative < 2 mIU/mL
[2021-05-25] MEDS: iohexoL 350 MG/ML 100 ML INFUS..BTL IV (15:32)
[2021-05-25 16:38] VITALS: BP 109/67; RESP 16
--- NOTE | 2021-05-25 16:38 | PC.NURSE ---
pt resting comfortably in high fowlers position, resps are = and nonlabored with clear and = bronchial and vesicular ls. awaiting cta report. pt offers no complaint po temp 98.8f
[2021-05-25] MEDS: cephALEXin 500 MG CAPSULE PO (18:22)
[2021-05-25] MEDS: dexAMETHasone 6 MG TABLET PO (18:22)
== END 2021-05-25 17:00 | disposition home or self-care (01) ==
PROVIDERS: Physician Assistant; Emergency Provider Emergency Medicine; PCP Internal Medicine
DX: U07.1 COVID-19 (principal); N30.00 Acute cystitis without hematuria; R06.02 Shortness of breath; R07.9 Chest pain, unspecified; R35.0 Frequency of micturition; Z79.899 Other long term (current) drug therapy
CPT/HCPCS: 36415; 71045; 71275; 80053; 81001; 84484; 84702; 85025; 85379; 87086; 87088; 87186; 87635; 93005; 94640; 96360; 99284; J8540; Q9967

== ENCOUNTER 2021-06-17 15:20 | Emergency (ER) | payer OTHER, SELFPAY ==
--- NOTE | ~2021-06-17 | XR_ITS ---
EXAMINATION: XR CHEST CLINICAL INFORMATION: Cough and wheezing COMPARISON: Previous chest x-ray 05/25/2021 TECHNIQUE: 2 views of the chest were obtained. FINDINGS: The cardiac and mediastinal contours are normal. The lung volumes are low. There is a left perihilar infiltrate new from April 2021 exam. The right lung is clear. There is no pleural effusion or pneumothorax. Bony structures are unremarkable. XR/XR chest 2V IMPRESSION: Low lung volumes and new left perihilar infiltrate.
[2021-06-17 15:46] VITALS: BP 140/85; PULSE 105; RESP 18; TEMP 37.1; O2SAT 100; BMI 43.9
--- NOTE | 2021-06-17 16:34 | ED.SOB ---
HPI - SOB/Dyspnea General Chief Complaint: Dyspnea Stated Complaint: Sob,cough +covid 05/25 Time Seen by Provider: 06/17/21 16:12 Source: patient Mode of arrival: ambulatory Limitations: no limitations History of Present Illness HPI Narrative: 25-year-old female with a history of asthma here with reports of cough, wheezing and shortness of breath for 3 days. Patient tells me this is unrelieved with her albuterol MDI. She tells me normally her asthma is well controlled when she gets it may become uncontrolled. She denies any chest pain, leg swelling or leg pain or fever. She tested positive for COVID on May 25. She took a home test on SaturdayJune 12 which was positive. She believes she is about 6 weeks . She has not had an ultrasound to confirm IUP. No vaginal bleeding or abdominal pain or cramping Related Data Home Medications Medication Instructions Recorded Confirmed cetirizine 10 mg tablet 10 mg PO DAILY 04/14/20 04/14/20 norelgestromin 150 mcg-e.estradiol 1 patch TOPICAL QWEEK 04/14/20 04/14/20 35 mcg/24 hr weekly transderm patch Previous Rx's Medication Instructions Recorded albuterol sulfate 90 mcg/actuation 2 puff INHALATION Q4H PRN 30 Days 05/24/21 aerosol inhaler #8.5 g fluticasone propionate 110 2 inh INHALATION Q12H #12 g 05/24/21 mcg/actuation HFA aerosol inhaler albuterol sulfate 1.25 mg/3 mL 1.25 mg (3 mL) INHALATION Q4-6H 05/25/21 solution for nebulization PRN #90 ml cephalexin 500 mg tablet 500 mg PO QID 5 Days #20 tab 05/25/21 dexamethasone 6 mg tablet 6 mg PO DAILY 3 Days #3 tab 05/25/21 albuterol sulfate 2.5 mg (3 mL) INHALATION QID PRN 06/17/21 #75 ml azithromycin 250 mg tablet See Rx Instructions .ROUTE 06/17/21 .COMPLEX #6 tab prednisone 20 mg tablet 40 mg PO DAILY #10 tab 06/17/21 prenat.vits,annamaria,haw-cvts-eumus 1 tab PO DAILY #30 tab 06/17/21 Allergies Allergy/AdvReac Type Severity Reaction Status Date / Time shellfish derived Allergy Severe ANAPHYLAXIS Verified 06/17/21 15:46 amoxicillin [AMOXICILLIN] Allergy Mild RASH Verified 06/17/21 15:46 nut - unspecified [nut] Allergy Unknown + ALLERGY Verified 06/17/21 15:46 TEST cats Allergy Unknown Unknown Uncoded 06/17/21 15:46 dogs Allergy Unknown Unknown Uncoded 06/17/21 15:46 enviromental Allergy Unknown Unknown Uncoded 06/17/21 15:46 nuts Allergy Unknown Unknown Uncoded 06/17/21 15:46 shellfish Allergy Unknown anaphylaxis Uncoded 06/17/21 15:46 Review of Systems Review of Systems: Yes all other systems are reviewed and are negative Constitutional: Constitutional: Reports no additional constitutional complaints, Denies body ache(s), Denies chills, Denies fever(s), Denies headache(s) and Denies weakness Eyes: Eyes: Reports no additional eye complaints and Denies change in vision ENT: Reports system reviewed and no additional complaints, except as documented, Denies dizziness, Denies headache(s), Denies nasal congestion, Denies nasal discharge and Denies neck pain Cardiovascular: Cardiovascular: Reports no additional cardiovascular complaints, Denies chest pain, Denies leg edema and Reports dyspnea Respiratory: Respiratory: Reports no additional respiratory complaints, Reports cough, Reports dyspnea and Reports wheezing Gastrointestinal: Gastrointestinal: Reports no additional gastrointestinal complaints, Denies abdominal pain, Denies diarrhea, Denies nausea and Denies vomiting Genitourinary: Genitourinary: Reports no additional female genitourinary complaints and Denies urinary incontinence Musculoskeletal: Musculoskeletal: Reports no additional musculoskeletal complaints, Denies back pain, Denies arthralgias, Denies joint swelling, Denies neck pain, Denies numbness and Denies tingling Integumentary/Breasts: Skin/Breast: Reports system reviewed and no additional complaints, except as docu and Denies rash Neurologic: Reports system reviewed and no additional complaints, except as documented, Denies Abnormal speech present, Denies dizziness, Denies headache(s), Denies numbness, Denies tingling and Denies weakness Allergic/Immunologic: Allergic/Immunologic: Reports wheezing PMFSH Past Medical History Attestation statement: The following information was validated with the patient. Source: old records reviewed and nursing notes reviewed Medical History Allergic rhinitis Anxiety Asthma Chronic low back pain Eczema Morbid obesity Neck pain Surgical History H/O cleft lip repair History of appendectomy Family History Family History Maternal Grandfather Alzheimer disease Paternal Grandmother Diabetes Other Mental health disorder Social History Social History Housing: House Alcohol intake: never Patient Tobacco Use Status: Never used Tobacco Second Hand Smoke Exposure: No Advance Directives: No Advance Directives Information Provided: No Patient : Yes Current occupational status: employed Physical Exam Vital Signs: Vital Signs: Last Vital Signs Temp 98.7 F 06/17/21 15:46 Pulse 105 H 06/17/21 15:46 Resp 18 06/17/21 15:46 BP 140/85 H 06/17/21 15:46 Pulse Ox 100 06/17/21 15:46 BMI result Body Mass Index 43.9 Const: General: cooperative, healthy appearing, comfortable and no acute distress Orientation/consciousness: patient oriented x3 Limitations: no limitations HENMT: Head: Yes normal to inspection Ears: hearing grossly normal bilaterally and TM's normal bilaterally General nose exam: Normal external nose present Face and sinus: Yes normal facial exam Mouth: Normal oral and palatal mucosa present Throat: Yes posterior oropharynx normal, Yes tonsils normal and Yes uvula midline Eyes: General: appearance normal, both eyes and all related structures Pupils: Equal, round and reactive pupils present Neck: Neck: Yes normal visual inspection Chest: Chest palpation & inspection: normal inspection of the chest Resp: Effort & Inspection: normal respiratory effort Auscultation: clear to auscultation bilaterally Cardio: Rate: regular rate Rhythm: regular rhythm Peripheral pulses: Peripheral pulses 2+ throughout GI: Inspection: Yes normal to inspection Palpation (GI): Soft to palpation and nontender Auscultation: normal bowel sounds Back/Spine/Pelvis: Thoracic/Lumbar Spine: thoracic and lumbar spine normal to inspection Skin: General skin exam: no rashes or lesions noted Neuro: General: patient oriented x3, no focal motor deficits and normal sensation to monofilament Cranial nerves: Yes Equal, round and reactive pupils present Cognition (Neuro): normal cognition Speech: No Abnormal speech present Gait exam (Neuro): Normal gait present Motor exam (neuro): 5/5 motor strength present throughout Extrem: General: Yes normal to inspection, Yes no pedal edema and Yes no calf tenderness Course Course Course Narrative: 25-year-old female who tested positive for COVID on May 25 is here with reports of cough, wheezing and shortness of breath for the last 3 days unrelieved with her home albuterol. Of note, patient took a home test that was positive last week but has not had an ultrasound or seen OB yet. No -related complaints. On arrival the patient is alert and oriented. She is speaking full sentences. Her lungs are clear. She has no history of hospitalizations or intubations for asthma. She tells me that normally prednisone helps when she has asthma symptoms. Will check labs, chest x-ray, ur preg 1730-labs show mild leukopenia likely secondary to recent viral illness. Chest x-ray shows a left-sided pneumonia. No hypoxia or tachypnea. Lungs are clear throughout. Afebrile. Likely post viral pneumonia. Will treat with course of antibiotics and 5 days of prednisone. Patient's urine is positive. She has no -related complaints. We discussed prednisone in . Patient tells me that she has had it multiple times during her previous pregnancies and is okay with taking it. Reviewed worrisome signs and symptoms of when to return to the emergency department. Comfortable discharge home. MDM - SOB/Dyspnea MDM Narrative Medical decision making narrative: PE less likely with PERC 0 Medical Records Attestation: I reviewed the patient's medical records. Lab Data Attestation: I reviewed the patient's lab results. Result diagrams: 06/17/21 16:46 06/17/21 16:46 Labs: Lab Results 06/17/21 06/17/21 06/17/21 Range/Units 16:23 16:46 16:46 WBC 3.4 L (4.8-10.8) X10*3/uL RBC 4.42 (4.20-5.50) X10*6/uL Hgb 13.7 (12.0-16.0) g/dl Hct 40.3 (37.0-47.0) % MCV 91.2 (80.0-98.0) fL MCH 31.0 (27.0-33.0) pg MCHC 34.0 (31.0-35.0) g/dl RDW 12.6 (11.0-16.0) % Plt Count 261 (160-400) X10*3/uL MPV 8.9 L (9.4-12.3) fL Immature Gran % (Auto) 0.3 (0.0-0.4) % Neut % (Auto) 58.8 (45-73) % Lymph % (Auto) 25.5 (20-40) % [place] % (Auto) 13.6 H (2-11) % Eos % (Auto) 1.5 (0-4) % Baso % (Auto) 0.3 (0-2) % Lymph # (Auto) 0.9 L (1.2-4.9) X10*3/uL [place] # (Auto) 0.5 (0.1-1.2) X10*3/uL Eos # (Auto) 0.1 (0.0-0.4) X10*3/uL Baso # (Auto) 0.0 (0.0-0.2) X10*3/uL Abs Immat Gran (auto) 0.01 (0.00-0.03) X10*3/uL Absolute Neuts (auto) 2.0 (2.0-8.3) x10*3/uL Absolute Nucleated RBC 0.000 (0.0-0.012) X10*3/uL Nucleated RBC % (auto) 0.0 (0.0-0.2) /100WBC Sodium 139 (135-145) mmol/L Potassium 3.6 (3.3-5.1) mmol/L Chloride 104 (96-108) mmol/L Carbon Dioxide 26 (22-29) mmol/L Anion Gap 13 (12-20) BUN 7 L (9-16) mg/dL Creatinine 0.62 (0.5-1.4) mg/dL Estim Creat Clear Calc 139.5 Estimated GFR > 60 Random Glucose 93 (60-115) mg/dL Calcium 9.3 D (8.4-10.2) mg/dL Total Bilirubin < 0.2 (0.0-1.0) mg/dL Direct Bilirubin < 0.2 (0.0-0.5) mg/dL AST 19 (5-31) U/L ALT 26 (0-31) U/L Alkaline Phosphatase 73 (39-117) U/L Lactate Dehydrogenase 202 (122-220) U/L Troponin I High Sens (<3.5-17.0) ng/L C-Reactive Protein 2.27 H (< or = 0.50) mg/dL Total Protein 7.3 (6.5-8.0) g/dL Albumin 4.1 (3.5-5.0) g/dL Procalcitonin ng/mL Urine Test POSITIVE H (NEGATIVE) 06/17/21 06/17/21 Range/Units 16:46 16:46 WBC (4.8-10.8) X10*3/uL RBC (4.20-5.50) X10*6/uL Hgb (12.0-16.0) g/dl Hct (37.0-47.0) % MCV (80.0-98.0) fL MCH (27.0-33.0) pg MCHC (31.0-35.0) g/dl RDW (11.0-16.0) % Plt Count (160-400) X10*3/uL MPV (9.4-12.3) fL Immature Gran % (Auto) (0.0-0.4) % Neut % (Auto) (45-73) % Lymph % (Auto) (20-40) % [place] % (Auto) (2-11) % Eos % (Auto) (0-4) % Baso % (Auto) (0-2) % Lymph # (Auto) (1.2-4.9) X10*3/uL [place] # (Auto) (0.1-1.2) X10*3/uL Eos # (Auto) (0.0-0.4) X10*3/uL Baso # (Auto) (0.0-0.2) X10*3/uL Abs Immat Gran (auto) (0.00-0.03) X10*3/uL Absolute Neuts (auto) (2.0-8.3) x10*3/uL Absolute Nucleated RBC (0.0-0.012) X10*3/uL Nucleated RBC % (auto) (0.0-0.2) /100WBC Sodium (135-145) mmol/L Potassium (3.3-5.1) mmol/L Chloride (96-108) mmol/L Carbon Dioxide (22-29) mmol/L Anion Gap (12-20) BUN (9-16) mg/dL Creatinine (0.5-1.4) mg/dL Estim Creat Clear Calc Estimated GFR Random Glucose (60-115) mg/dL Calcium (8.4-10.2) mg/dL Total Bilirubin (0.0-1.0) mg/dL Direct Bilirubin (0.0-0.5) mg/dL AST (5-31) U/L ALT (0-31) U/L Alkaline Phosphatase (39-117) U/L Lactate Dehydrogenase (122-220) U/L Troponin I High Sens < 3.5 (<3.5-17.0) ng/L C-Reactive Protein (< or = 0.50) mg/dL Total Protein (6.5-8.0) g/dL Albumin (3.5-5.0) g/dL Procalcitonin 0.12 ng/mL Urine Test (NEGATIVE) Imaging Data Chest x-ray: Attestation: I personally reviewed and interpreted this imaging study as follows: Radiologist's impression: [place] [id number] XRay Report Signed Patient: Crys Medel MR#: [id number] : 1995 Acct:[id number] Age/Sex: 25 / F ADM Date: 06/17/21 Loc: .ED Attending Dr: Ordering Physician: Mony Dove NP Date of Service: 06/17/21 Procedure(s): XR chest 2V Accession Number(s): [id number] cc: Mony Dove NP~ EXAMINATION: XR CHEST CLINICAL INFORMATION: Cough and wheezing COMPARISON: Previous chest x-ray 05/25/2021 TECHNIQUE: 2 views of the chest were obtained. FINDINGS: The cardiac and mediastinal contours are normal. The lung volumes are low. There is a left perihilar infiltrate new from April 2021 exam. The right lung is clear. There is no pleural effusion or pneumothorax. Bony structures are unremarkable. XR/XR chest 2V IMPRESSION: Low lung volumes and new left perihilar infiltrate. ECG Data Attestation: I personally reviewed and interpreted this ECG as follows: ECG interpretation date: 06/17/21 ECG interpretation time: 12:19 Interpretation: Sinus tachycardia with a rate of 108, normal DC, normal QRS, normal QT Nonspecific ST changes Discharge Plan Discharge Clinical Impression: COVID-19, Asthma with exacerbation, Community acquired pneumonia, Patient Disposition: Home, Self-Care Instructions: Asthma (ED), Community Acquired Pneumonia (ED), First Trimester (ED), COVID-19 (Coronavirus Disease 2019) (ED) Additional Instructions: Increase fluids, rest Continue albuterol as needed Tylenol for pain as needed Your test is positive. Follow-up with an OB doctor Prescriptions: New prenat.vits,annamaria,lrf-ocrq-nvygc Tablet 1 tab PO DAILY Qty: 30 RF: 0 prednisone 20 mg tablet 40 mg PO DAILY Qty: 10 RF: 0 azithromycin 250 mg tablet See Rx Instructions .ROUTE .COMPLEX Qty: 6 RF: 0 albuterol sulfate 2.5 mg /3 mL (0.083 %) solution for nebulization 2.5 mg inhalation QID PRN (Reason: shortness of breath or wheezing) Qty: 75 RF: 0 No Action albuterol sulfate 90 mcg/actuation HFA aerosol inhaler 2 puff inhalation Q4H PRN (Reason: bronchospasm) 30 Days Qty: 8.5 RF: 0 fluticasone propionate 110 mcg/actuation HFA aerosol inhaler 2 inh inhalation Q12H Qty: 12 RF: 1 albuterol sulfate 1.25 mg/3 mL solution for nebulization 1.25 mg inhalation Q4-6H PRN (Reason: shortness of breath or wheezing) Qty: 90 RF: 0 cephalexin 500 mg tablet 500 mg PO QID 5 Days Qty: 20 RF: 0 dexamethasone 6 mg tablet 6 mg PO DAILY 3 Days Qty: 3 RF: 0 cetirizine 10 mg tablet 10 mg PO DAILY RF: 0 Xulane 150-35 mcg/24 hr patch weekly 1 patch topical QWEEK RF: 0 Referrals: Cathy Rios MD [Primary Care Provider] - 2 days
[2021-06-17 16:39] LABS: UPreg QC Valid YES; Urine Pregnancy POSITIVE (NEGATIVE)
[2021-06-17 16:53] LABS: Basophils Percent Auto 0.3 % (0-2); Eosinophils Absolute Auto 0.1 X10*3/uL (0.0-0.4); Eosinophils Percent Auto 1.5 % (0-4); Hematocrit 40.3 % (37.0-47.0); Hemoglobin 13.7 g/dl (12.0-16.0); Imm Gran Abs Auto 0.01 X10*3/uL (0.00-0.03); Imm Gran Pct Auto 0.3 % (0.0-0.4); Lymphocytes Absolute Auto 0.9 X10*3/uL (1.2-4.9); Lymphocytes Percent Auto 25.5 % (20-40); MANUAL DIFF FLAG NO; Mean Corpuscular Volume 91.2 fL (80.0-98.0); Mean Platelet Volume 8.9 fL (9.4-12.3); Monocytes Absolute Auto 0.5 X10*3/uL (0.1-1.2); Monocytes Percent Auto 13.6 % (2-11); Neutrophils Percent Auto 58.8 % (45-73); Platelet Count 261 X10*3/uL (160-400); Red Blood Count 4.42 X10*6/uL (4.20-5.50); Red Cell Distribution Width 12.6 % (11.0-16.0); White Blood Count 3.4 X10*3/uL (4.8-10.8)
[2021-06-17 17:13] LABS: Troponin-I High Sensitivity < 3.5 ng/L (<3.5-17.0)
[2021-06-17 17:16] LABS: Alanine Aminotransferase 26 U/L (0-31); Albumin Level 4.1 g/dL (3.5-5.0); Alkaline Phosphatase 73 U/L (39-117); Anion Gap 13 (12-20); Aspartate Amino Transferase 19 U/L (5-31); Bilirubin Direct < 0.2 mg/dL (0.0-0.5); Bilirubin Total < 0.2 mg/dL (0.0-1.0); Blood Urea Nitrogen 7 mg/dL (9-16); C Reactive Protein 2.27 mg/dL (< or = 0.50); Calcium 9.3 mg/dL (8.4-10.2); Carbon Dioxide 26 mmol/L (22-29); Chloride 104 mmol/L (96-108); Creatinine Clr Calc Pharmacy 139.5; Estimated Glomerular Filt Rate > 60; Glucose Random 93 mg/dL (60-115); Lactate Dehydrogenase 202 U/L (122-220); Potassium 3.6 mmol/L (3.3-5.1); Sodium 139 mmol/L (135-145); Total Protein 7.3 g/dL (6.5-8.0)
[2021-06-17 17:27] LABS: Procalcitonin 0.12 ng/mL
[2021-06-17 17:30] LABS: Ferritin 125 ng/mL (10-122)
== END 2021-06-17 17:42 | disposition home or self-care (01) ==
PROVIDERS: Nurse Practitioner Family; Emergency Provider Internal Medicine; PCP Internal Medicine
DX: O98.511 Other viral diseases complicating pregnancy, first trimester (principal); O99.511 Diseases of the respiratory system complicating pregnancy, first trimester; U07.1 COVID-19; J12.82 Pneumonia due to coronavirus disease 2019; J45.901 Unspecified asthma with (acute) exacerbation; Z3A.01 Less than 8 weeks gestation of pregnancy
CPT/HCPCS: 36415; 71046; 80048; 80076; 81025; 82728; 83615; 84145; 84484; 85025; 86140; 99283

== ENCOUNTER 2021-12-24 04:44 | Emergency (ER) | payer OTHER, SELFPAY ==
[2021-12-24 04:49] VITALS: BP 100/63; PULSE 95; RESP 16; O2SAT 99; BMI 48.4
--- NOTE | 2021-12-24 04:56 | ED_ITS ---
HPI - Eye Problem General Chief complaint: Eye Problems Stated complaint: pink eye Time Seen by Provider: 12/24/21 04:54 Source: patient Mode of arrival: ambulatory Limitations: no limitations History of Present Illness MD chief complaint: eye redness and other (eye discharge) Onset (ago): day(s) (1) Onset description: gradual Duration: constant Location: both eyes Eye Symptoms: redness, itching and discharge Place: home Mechanism: other (her child has conjunctivitis) Severity: mild If Pain, Quality: burning Context: other (exposed to conjunctivitis) Associated symptoms: none Related Data Home Medications Medication Instructions Recorded Confirmed cetirizine 10 mg tablet 10 mg PO DAILY 04/14/20 04/14/20 Previous Rx's Medication Instructions Recorded albuterol sulfate 90 mcg/actuation 2 puff inhalation Q4H PRN 05/24/21 aerosol inhaler bronchospasm 30 days #8.5 grams albuterol sulfate 1.25 mg/3 mL 1.25 mg (3 mL) inhalation Q4-6H 05/25/21 solution for nebulization PRN shortness of breath or wheezing #90 mL albuterol sulfate 2.5 mg/3 mL 2.5 mg (3 mL) inhalation QID PRN 06/17/21 (0.083 %) solution for nebulization shortness of breath or wheezing #75 mL prenat.vits,annamaria,jah-wajn-tiian 1 tab PO DAILY #30 tabs 06/17/21 fluticasone propionate 110 2 inh inhalation Q12H #36 grams 09/25/21 mcg/actuation HFA aerosol inhaler erythromycin 5 mg/gram (0.5 %) eye 0.5 inch ophthalmic (eye) BID 5 12/24/21 ointment days #3.5 grams Allergies Allergy/AdvReac Type Severity Reaction Status Date / Time shellfish derived Allergy Severe ANAPHYLAXIS Verified 12/24/21 04:51 amoxicillin [AMOXICILLIN] Allergy Mild RASH Verified 12/24/21 04:51 nut - unspecified [nut] Allergy Unknown + ALLERGY Verified 12/24/21 04:51 TEST cats Allergy Unknown Unknown Uncoded 12/24/21 04:51 dogs Allergy Unknown Unknown Uncoded 12/24/21 04:51 enviromental Allergy Unknown Unknown Uncoded 12/24/21 04:51 nuts Allergy Unknown Unknown Uncoded 12/24/21 04:51 shellfish Allergy Unknown anaphylaxis Uncoded 12/24/21 04:51 Review of Systems Review of Systems: Constitutional : No Fever, No Chills ENT/Mouth : No sore throat, No Rhinorrhea Eyes: pos discharge, pos Redness Cardiovascular : No Chest Pain, No SOB Respiratory : No Cough, No Sputum Gastrointestinal : No Nausea, No Vomiting Genitourinary : No Dysuria, No Urinary Frequency Musculoskeletal : No joint pain, No Myalgias Skin : No Skin Lesions, No rash Neuro : No Weakness, No Numbness, No Dizziness, No Headache [facility] Past Medical History Medical History Allergic rhinitis Anxiety Asthma Chronic low back pain Eczema Morbid obesity Neck pain Surgical History H/O cleft lip repair History of appendectomy Family History Family History Maternal Grandfather Alzheimer disease Paternal Grandmother Diabetes Other Mental health disorder Social History Social History Housing: House Alcohol intake: never Patient Tobacco Use Status: Never used Tobacco Second Hand Smoke Exposure: No Advance Directives: Yes Advance Directives Information Provided: Yes Advance Directives on File: No Current occupational status: employed Physical Exam Vital Signs: Vital Signs: Last Vital Signs Pulse 95 12/24/21 04:49 Resp 16 12/24/21 04:49 BP 100/63 12/24/21 04:49 Pulse Ox 99 12/24/21 04:49 O2 Del Method 12/24/21 04:49 BMI result Body Mass Index 48.4 Appearance: Alert. Oriented X3. No acute distress. Eyes: Pupils equal, round and reactive to light. injected conjuctiva mild sclera erythema, no drainage noted, no periorbital edema ENT: Pharynx normal. Neck: Normal inspection. Neck supple. CVS: Normal heart rate and rhythm. Pulses normal. Respiratory: No respiratory distress. Abdomen: gravid uterus Skin: Skin warm and dry. Normal skin color. Extremities: No lower extremity edema. Neuro: Oriented X 3. No motor deficit. No sensory deficit. MDM - Eye Problem MDM Narrative Medical decision making narrative: 26 yo female with hx of asthma, 8 months has only complaint of exposure to her child with conjunctivitis now she has itchy red eyes and woke up with discharge - she has normal vision and I only appreciate mild redness no discharge, she does not wear contacts. will Rx ointment and she can follow up with her PCP Discharge Plan Discharge Clinical Impression: Conjunctivitis Qualifiers: Conjunctivitis type: unspecified Laterality: bilateral Qualified Code(s): H10.9 - Unspecified conjunctivitis Patient Disposition: Home, Self-Care Instructions: Conjunctivitis (ED) Additional Instructions: return to ED for any worsening symptoms or concerns wash hands frequently, this is contagious follow up with your doctor if it is not improving Prescriptions: New erythromycin 5 mg/gram (0.5 %) ointment 0.5 inch ophthalmic (eye) BID 5 Days Qty: 3.5 0RF No Action albuterol sulfate 90 mcg/actuation HFA aerosol inhaler 2 puff inhalation Q4H PRN (Reason: bronchospasm) 30 Days Qty: 8.5 0RF fluticasone propionate 110 mcg/actuation HFA aerosol inhaler 2 inh inhalation Q12H Qty: 36 3RF albuterol sulfate 1.25 mg/3 mL solution for nebulization 1.25 mg inhalation Q4-6H PRN (Reason: shortness of breath or wheezing) Qty: 90 0RF prenat.vits,annamaria,otn-uosn-ewvmy Tablet 1 tab PO DAILY Qty: 30 0RF albuterol sulfate 2.5 mg /3 mL (0.083 %) solution for nebulization 2.5 mg inhalation QID PRN (Reason: shortness of breath or wheezing) Qty: 75 0RF cetirizine 10 mg tablet 10 mg PO DAILY
== END 2021-12-24 05:35 | disposition home or self-care (01) ==
PROVIDERS: Emergency Provider Emergency Medicine; PCP Internal Medicine
DX: H10.33 Unspecified acute conjunctivitis, bilateral (principal); Z79.899 Other long term (current) drug therapy
CPT/HCPCS: 99282

== ENCOUNTER 2022-03-11 22:02 | Emergency (ER) | payer OTHER, SELFPAY ==
--- NOTE | 2022-03-12 00:20 | PC.NURSE ---
PT CALLED TO TRIAGE [phone] WITH NO ANSWER
== END 2022-03-12 00:50 | disposition left against medical advice (07) ==
PROVIDERS: Emergency Provider Emergency Medicine; PCP Internal Medicine
DX: R10.9 Unspecified abdominal pain (principal)

== ENCOUNTER → 2022-09-19 10:46 | Outpatient (BNVA) | payer OTHER, SELFPAY | PROVIDERS: PCP Internal Medicine; Referring Provider Internal Medicine; Visit Provider Physician Assistant Surgical ==

== ENCOUNTER → 2022-10-05 08:54 | Outpatient (BNVA) | payer OTHER, SELFPAY | PROVIDERS: PCP Internal Medicine; Visit Provider Physician Assistant Surgical | DX: E66.01 Morbid (severe) obesity due to excess calories (principal); R40.0 Somnolence; Z68.41 Body mass index [BMI] 40.0-44.9, adult | CPT/HCPCS: 99212 ==

== ENCOUNTER 2022-10-11 08:17 | Outpatient (REF) | payer OTHER, SELFPAY ==
--- NOTE | ~2022-10-11 | XR_ITS ---
EXAMINATION: XR CHEST CLINICAL INFORMATION: Low back pain. Preop. COMPARISON: Previous chest x-ray May 2021 TECHNIQUE: 2 views of the chest were obtained. FINDINGS: No significant abnormality is noted involving the heart, lungs, mediastinum, bony thorax or soft tissues. XR/XR chest 2V IMPRESSION: Unremarkable examination.
--- NOTE | 2022-10-11 08:26 | ECG_ITS ---
Test Reason : m54.50 low aria pain Blood Pressure : / mmHG Vent. Rate : 071 BPM Atrial Rate : 071 BPM P-R Int : 154 ms QRS Dur : 094 ms QT Int : 380 ms P-R-T Axes : 047 050 032 degrees QTc Int : 412 ms Normal sinus rhythm with sinus arrhythmia Normal ECG When compared with ECG of 25-MAY-2021 12:19, Vent. rate has decreased BY 37 BPM Nonspecific T wave abnormality no longer evident in Lateral leads Referred By: Rafi Smith Electronically Signed By:Wilfred Mariee
[2022-10-11 08:30] LABS: MANUAL DIFF FLAG NO
[2022-10-11 08:43] LABS: Basophils Percent Auto 0.5 % (0-2); Eosinophils Absolute Auto 0.7 X10*3/uL (0.0-0.4); Eosinophils Percent Auto 9.8 % (0-4); Hematocrit 41.3 % (37.0-47.0); Imm Gran Abs Auto 0.01 X10*3/uL (0.00-0.03); Imm Gran Pct Auto 0.1 % (0.0-0.4); Lymphocytes Percent Auto 26.6 % (20-40); Mean Corpuscular HGB Conc 33.9 g/dl (31.0-35.0); Mean Corpuscular Hemoglobin 29.4 pg (27.0-33.0); Mean Corpuscular Volume 86.6 fL (80.0-98.0); Mean Platelet Volume 9.1 fL (9.4-12.3); Monocytes Absolute Auto 0.7 X10*3/uL (0.1-1.2); Monocytes Percent Auto 9.5 % (2-11); Neutrophils Absolute Auto 4.1 x10*3/uL (2.0-8.3); Neutrophils Percent Auto 53.5 % (45-73); Platelet Count 389 X10*3/uL (160-400); Red Blood Count 4.77 X10*6/uL (4.20-5.50); Red Cell Distribution Width 12.9 % (11.0-16.0); White Blood Count 7.6 X10*3/uL (4.8-10.8)
[2022-10-11 09:17] LABS: Estimated Average Glucose 91 mg/dL; Hemoglobin A1c % 4.8 %
[2022-10-11 09:26] LABS: Alanine Aminotransferase 42 U/L (0-31); Albumin Level 4.3 g/dL (3.5-5.0); Alkaline Phosphatase 82 U/L (39-117); Anion Gap 15 (12-20); Aspartate Amino Transferase 35 U/L (5-31); Bilirubin Total 0.6 mg/dL (0.0-1.0); Blood Urea Nitrogen 13 mg/dL (9-16); C Reactive Protein 0.68 mg/dL (< or = 0.50); Calcium 9.5 mg/dL (8.4-10.2); Carbon Dioxide 24 mmol/L (22-29); Chloride 107 mmol/L (96-108); Cholesterol 156 mg/dL; Estimated Glomerular Filt Rate > 60; Glucose Random 88 mg/dL (60-115); HDL Cholesterol 39 mg/dL; Iron 120 mcg/dL (30-160); LDL Cholesterol Calculated 97 mg/dl; Percent Iron Saturation 34 % (15-50); Sodium 142 mmol/L (135-145); Total Iron Binding Capacity 355 mcg/dL (228-428); Total Protein 7.3 g/dL (6.5-8.0); Triglycerides 103 mg/dL; Unsaturated Iron Binding 235 ug/dL
[2022-10-11 09:56] LABS: Ferritin 53 ng/mL (10-122); Folate 16.2 ng/mL (> or = 4.0); Insulin 10 uU/mL (2-29); TSH reflex Free T4 1.14 uIU/mL (0.32-4.0); Vitamin B12 476 pg/mL (200-900); Vitamin D 25-OH Total 27.8 ng/mL (>30)
[2022-10-15 15:54] LABS: Calcium (PTHI) 9.5 mg/dL (8.6-10.2); PTHI 54 pg/mL (16-77)
[2022-10-17 06:39] LABS: Zinc 79 mcg/dL (60-130)
[2022-10-18 17:18] LABS: Vitamin A 51 mcg/dL (38-98)
[2022-10-20 07:18] LABS: Vitamin B1 6 nmol/L (8-30)
== END 2022-10-11 08:18 | disposition home or self-care (01) ==
LOC: HO.LAB 08:17
PROVIDERS: PCP Internal Medicine; Visit Provider Surgery
DX: M54.50 Low back pain, unspecified (principal); G89.29 Other chronic pain; E66.01 Morbid (severe) obesity due to excess calories; J45.909 Unspecified asthma, uncomplicated
CPT/HCPCS: 36415; 71046; 80053; 80061; 82306; 82607; 82728; 82746; 83036; 83525; 83540; 83970; 84425; 84443; 84590; 84630; 85025; 86140; 93005

== ENCOUNTER → 2022-10-24 08:22 | Outpatient (REF) | payer OTHER, SELFPAY | LOC: HO.SL 08:22 | PROVIDERS: PCP Internal Medicine; Visit Provider Physician Assistant Surgical | DX: Z13.89 Encounter for screening for other disorder (principal) ==

== ENCOUNTER → 2022-10-26 10:50 | Outpatient (BNVA) | payer OTHER, SELFPAY | PROVIDERS: PCP Internal Medicine; Referring Provider Physician Assistant Surgical; Visit Provider Counselor Mental Health ==

== ENCOUNTER → 2022-11-13 11:10 | Outpatient (BNVA) | payer OTHER, SELFPAY | PROVIDERS: PCP Internal Medicine; Visit Provider Physician Assistant | DX: Z11.0 Encounter for screening for intestinal infectious diseases (principal) | CPT/HCPCS: 99211 ==

== ENCOUNTER 2022-11-14 09:17 | Outpatient (REF) | payer OTHER, SELFPAY ==
[2022-11-16 16:58] LABS: H Pylori Breath Test Negative (Negative)
== END 2022-11-14 09:18 | disposition home or self-care (01) ==
LOC: HO.LNP 09:17
PROVIDERS: Visit Provider Surgery
DX: M54.50 Low back pain, unspecified (principal); G89.29 Other chronic pain; E66.01 Morbid (severe) obesity due to excess calories; J45.909 Unspecified asthma, uncomplicated; Z11.0 Encounter for screening for intestinal infectious diseases
CPT/HCPCS: 83013

== ENCOUNTER → 2022-11-19 09:00 | Outpatient (BNVA) | payer OTHER, SELFPAY | PROVIDERS: PCP Internal Medicine; Visit Provider Counselor Mental Health ==

== ENCOUNTER → 2022-11-29 09:39 | Outpatient (REF) | payer OTHER, SELFPAY | LOC: HO.SL 09:39 | PROVIDERS: Visit Provider Physician Assistant Surgical | DX: R40.0 Somnolence (principal); R06.83 Snoring; E66.01 Morbid (severe) obesity due to excess calories | CPT/HCPCS: 95806 ==

== ENCOUNTER → 2022-11-29 09:54 | Outpatient (BNV) | payer OTHER, SELFPAY | PROVIDERS: Visit Provider Internal Medicine | DX: R06.83 Snoring (principal) | CPT/HCPCS: 95806 ==

== ENCOUNTER 2022-12-06 08:16 | Outpatient (REF) | payer OTHER, SELFPAY ==
--- NOTE | ~2022-12-06 | US_ITS ---
EXAMINATION: US COMPLETE ABDOMEN WITH LIVER ELASTOGRAPHY CLINICAL INFORMATION: Morbid (severe) obesity due to excess calories. COMPARISON: US abdomen. TECHNIQUE: Real-time imaging of the abdominal viscera. Noninvasive ultrasound liver fibrosis assessment is performed using Ankit ElastPQ point quantification shear wave elastography (2D-SWE) with a C5-2 MHz transducer. Multiple elastography samples are obtained. FINDINGS: PANCREAS: Normal. The visualized pancreatic head and body are normal in appearance. The remainder of the pancreas is obscured from visualization by the overlying bowel gas. ABDOMINAL AORTA: The proximal, middle, and distal aortic segments are normal in caliber. INFERIOR VENA CAVA: Visualized portions are normal. LIVER: The liver demonstrates normal size and contour. There is increased hepatic echotexture, most pronounced anteriorly within the left lobe.. No focal lesion or intrahepatic biliary duct dilatation. The right lobe measures 14.6 cm in length. The left lobe measures 11.2 cm in length. Portal flow is towards the liver (hepatopetal). Shear wave liver elastography median stiffness is 1.81 m/s (reference: normal median stiffness is 1.3 m/s or less). IQR/median stiffness to assess sampling precision is 0.13 (reference: good quality data set is IQR/median stiffness of 0.15 or less). GALLBLADDER: Surgically absent. COMMON BILE DUCT: Normal in caliber measuring 0.6 cm in diameter. RIGHT KIDNEY: Normal. No hydronephrosis. No renal calculi or focal parenchymal lesions. The kidney measures 11.7 cm in maximum dimension. LEFT KIDNEY: Normal. No hydronephrosis. No renal calculi or focal parenchymal lesions. The kidney measures 11.0 cm in maximum dimension. SPLEEN: Normal. The spleen measures 9.4 cm in maximum dimension. FREE FLUID: None. US/US abdomen comp w elastography IMPRESSION: 1. There is increased hepatic echotexture, consistent with fatty infiltration or hepatocellular disease. Please correlate clinically. No focal hepatic mass or intrahepatic biliary dilatation is seen. 2. Liver elastography: Measurements are suggestive of compensated advanced chronic liver disease but need further test for confirmation. 3. The gallbladder is surgically absent. REFERENCE: Society of Radiologists in Ultrasound Liver Stiffness Thresholds (2020): LIVER STIFFNESS THRESHOLDS: *Liver Stiffness equal or less than 1.3 m/s: High probability of being normal. *Liver Stiffness less than 1.7 m/s: In the absence of other known clinical signs, rules out compensated advanced chronic liver disease. *Liver Stiffness 1.7-2.1 m/s: Suggestive of compensated advanced chronic liver disease but need further test for confirmation. *Liver Stiffness over 2.1 m/s: Rules in compensated advanced chronic liver disease. *Liver Stiffness over 2.4 m/s: Suggestive of clinically significant portal hypertension. QUALITY OF DATA SET: *IQR/Median value equal or less than 0.15 implies a quality data set. *IQR/Median value over 0.15 implies a poor quality data set. SIGNIFICANT CHANGE FROM PRIOR EXAM: Significant change if liver stiffness measurement is 10% or greater from prior exam. OTHER CONSIDERATIONS: The stage of liver fibrosis may be overestimated in the setting of acute hepatitis, liver inflammation, elevated liver function tests, hepatic vascular congestion, obstructive cholestasis, non-fasting state, and infiltrative diseases such as amyloidosis and lymphoma. In some patients with NAFLD, the liver stiffness thresholds for compensated advanced chronic liver disease may be lower. In causes other than viral hepatitis and NAFLD, liver stiffness thresholds are not well established.
== END 2022-12-06 08:17 | disposition home or self-care (01) ==
LOC: HO.US 08:16
PROVIDERS: PCP Internal Medicine; Visit Provider Physician Assistant Surgical
DX: E66.01 Morbid (severe) obesity due to excess calories (principal)
CPT/HCPCS: 76705; 76981

== ENCOUNTER 2023-01-17 14:49 | Outpatient (AMB) | payer OTHER, SELFPAY ==
[2023-01-17 15:28] VITALS: BP 112/64; PULSE 73; O2SAT 97; BMI 43.9
--- NOTE | 2023-01-17 15:28 | A.OFFPC_ITS ---
<Statement entered by Cathy Rios MD - 09/30/24 15:20> This note has been administratively?closed. Vital Signs 01/17/23 15:28 Height 4 ft 10 in Weight 210 lb BMI 43.9 BP 112/64 Blood Pressure Location Lt brachial Position Sitting Pulse 73 Pulse Source Pulse Oximeter Pulse Oximetry (%) 97 Intake Visit Reasons: Low sugar readings, not a diabetic Intake Note: pt is here for concern on low blood readings Fiberglass Roller Required: No Allergies shellfish derived Allergy (Severe, Verified 01/17/23 15:28) ANAPHYLAXIS nut - unspecified [nut] Allergy (Unknown, Verified 01/17/23 15:28) + ALLERGY TEST cats Allergy (Unknown, Uncoded 04/11/22 09:30) Unknown dogs Allergy (Unknown, Uncoded 04/11/22 09:30) Unknown enviromental Allergy (Unknown, Uncoded 04/11/22 09:30) Unknown nuts Allergy (Unknown, Uncoded 04/11/22 09:30) Unknown shellfish Allergy (Unknown, Uncoded 04/11/22 09:30) anaphylaxis Medication List - Last Reconciled 01/17/23 by Cathy Rios MD albuterol sulfate 2.5 mg (3 mL) inhalation QID PRN albuterol sulfate 90 mcg/actuation 2 puffs inhalation Q4H PRN 30 days cetirizine 10 mg PO DAILY dupilumab (Dupixent) 300 mg subcut Q2W fluticasone propionate 110 mcg/actuation 2 inhalations inhalation Q12H Tobacco use date assessed: 01/17/23 Dental Screening Dental Screen Date: 01/17/23 Did you have a dental visit in the last 12 months?: Yes Did you have a dental problem in the last 6 months where you did not have access to dental care?: No Was dental information given to patient?: Patient has dentist COUNT INCLUDES [facility] Medical History (Updated 01/17/23 @ 15:59 by Cathy Rios MD) Allergic rhinitis Anxiety Asthma Chronic low back pain Eczema Morbid obesity Multiple episodes of hypoglycemia Neck pain Vitamin B1 deficiency Vitamin D deficiency Surgical History H/O cleft lip repair History of appendectomy Hx laparoscopic cholecystectomy Hx of section Hx of tubal ligation Family History Maternal Grandfather Alzheimer disease Paternal Grandmother Diabetes Mother No problems noted. Father No problems noted. Brother No problems noted. Brother No problems noted. Brother No problems noted. Sister High cholesterol Son No problems noted. Daughter No problems noted. Other Mental health disorder Social History Housing: House Alcohol intake: never Patient Tobacco Use Status: Never used Tobacco Second Hand Smoke Exposure: No Current occupational status: employed Cognitive needs: No Hearing needs: No Vision needs: No Questionnaire Thrive Questionnaire Date Thrive assessed: 04/06/21 ABRAHAM-7 AMB Questionnaire ABRAHAM-7 Date ABRAHAM - 7 assessed: 04/06/21 Source: Developed by Drs. Irving Armstrong, Marla Fall, Jeremy Méndez and colleagues, with an educational zach from [employer]. Physical exam (Primary Care) Vital Signs: Last Vital Signs Pulse 73 01/17/23 15:28 BP 112/64 01/17/23 15:28 Pulse Ox 97 01/17/23 15:28 BMI result Body Mass Index 43.9 Tobacco/Smoking Status: Tobacco use Status Tobacco use date assessed 01/17/23 01/17/23 15:32 Patient Tobacco Use Status Never used Tobacco 01/17/23 15:28 Thrive Assessment: Date of Thrive Assessment Date Thrive assessed 04/06/21 01/17/23 15:28 Assessment and Plan Assessment & Plan (1) Multiple episodes of hypoglycemia: Code(s): E16.2 - Hypoglycemia, unspecified Plan: Last hemoglobin A1c was 4.8% , advised to eat breakfast regularly, referred to nurse navigator for dietary guidance (2) Morbid obesity: Code(s): E66.01 - Morbid (severe) obesity due to excess calories (3) Vitamin B1 deficiency: Code(s): E51.9 - Thiamine deficiency, unspecified (4) Vitamin D deficiency: Code(s): E55.9 - Vitamin D deficiency, unspecified Orders: Orders Basic Metabolic Panel Fasting Today E16.2 - Hypoglycemia, unspecified, E51.9 - Thiamine deficiency, unspecified, E55.9 - Vitamin D deficiency, unspecified, E66.01 - Morbid (severe) obesity due to excess calories Glucose Fasting Today E16.2 - Hypoglycemia, unspecified, E51.9 - Thiamine deficiency, unspecified, E55.9 - Vitamin D deficiency, unspecified, E66.01 - Morbid (severe) obesity due to excess calories Hemoglobin A1c Today E16.2 - Hypoglycemia, unspecified, E51.9 - Thiamine deficiency, unspecified, E55.9 - Vitamin D deficiency, unspecified, E66.01 - Morbid (severe) obesity due to excess calories Vitamin B1 Today E16.2 - Hypoglycemia, unspecified, E51.9 - Thiamine deficiency, unspecified, E55.9 - Vitamin D deficiency, unspecified, E66.01 - Morbid (severe) obesity due to excess calories Vitamin D 25-OH Total Today E16.2 - Hypoglycemia, unspecified, E51.9 - Thiamine deficiency, unspecified, E55.9 - Vitamin D deficiency, unspecified, E66.01 - Morbid (severe) obesity due to excess calories Coding Level of Care Code Est Pt Level 3 (33468) Diagnoses Multiple episodes of hypoglycemia E16.2 Morbid obesity E66.01 Vitamin B1 deficiency E51.9 Vitamin D deficiency E55.9
== END 2023-01-17 16:16 | disposition home or self-care (01) ==
PROVIDERS: PCP Internal Medicine; Visit Provider Internal Medicine
DX: E16.2 Hypoglycemia, unspecified (principal); E51.9 Thiamine deficiency, unspecified; E55.9 Vitamin D deficiency, unspecified
CPT/HCPCS: 99499

== ENCOUNTER 2023-07-01 13:18 | Emergency (ER) | payer OTHER, SELFPAY ==
--- NOTE | ~2023-07-01 | CT_ITS ---
EXAMINATION: CT FACIAL BONES WITH CONTRAST CLINICAL INFORMATION: Left facial swelling question abscess COMPARISON: None available. TECHNIQUE: 3 mm thin axial and reformatted 1.5 mm thin sagittal coronal images of facial bones were obtained following IV 85 metal of Omnipaque 350. This CT examination was performed using dose optimization techniques as appropriate, variously including the following: *Automated exposure control *Adjustment of mA and/or kV according to patient size (this includes techniques or standardized protocols for targeted exams where dose is matched to indication/reason for exam; i.e. extremities or head) *Use of iterative reconstruction technique DLP: 427 mGy-cm FINDINGS: Visualized bifrontal intracranial parenchyma appears unremarkable. There is mild bilateral maxillary mucoperiosteal thickening. No air-fluid levels seen. Rest of the paranasal sinuses are clear. The mastoid air cells are clear. The bony orbits, optic globe and optic nerve is intact. The bony orbits are normal. Visualized maxillofacial, nasal and mandibular bone appears unremarkable. Bilateral TM joints are symmetrical and normal. There is dental amalgam related artifact along the lower molar tooth restricting soft tissue evaluation. However there is mild asymmetric thickening of the left maxillary soft tissue with no focal or discrete buckle or alveolar mass or abscess. There is several missing tooth especially left upper central and lateral incisors. There are large cavity involving left upper second molar tooth No periapical abscess, mass or sclerosis seen. The oropharyngeal airway appears patent. Parapharyngeal soft tissues are normal as well. No abnormal neck lymphadenopathy seen. CT/CT facial bones w IV con IMPRESSION: Limited imaging secondary to dental amalgam related artifact. There is missing left central and lateral incisor tooth. There is nonspecific mild soft tissue swelling along the left maxilla but no evidence of buccal or alveolar fluid collection or abscess. There is a large cavity involving left upper second molar tooth. Bilateral chronic maxillary sinus inflammatory changes.
[2023-07-01 14:46] VITALS: BP 143/78; PULSE 86; RESP 18; TEMP 36.8; O2SAT 99; BMI 45.2
--- NOTE | 2023-07-01 14:52 | ED_ITS ---
HPI - Dental/Oral General Chief complaint: Dental/Oral Stated complaint: Needs IV antibiotics sent by dentist Time Seen by Provider: 07/01/23 15:35 Source: patient, RN notes reviewed and old records reviewed Mode of arrival: ambulatory History of Present Illness HPI Narrative: 27 yo female w/no sig PMHx presenting to the ED c/o left sided upper dental pain and facial swelling for the past 24 hours. States she was treated 2 weeks ago by her dentist for possible infection with amoxicillin which she completed early last week w/symptomatic improvement, prior to planned root canal. Admits this morning woke up w/worsening swelling. Saw her dentist this morning states they attempted to drain area however was unsuccessful and sent her to the ED for IV antibiotics. Denies fever, sore throat, difficulty or inability to swallow, ear pain, voice changes Related Data Home Medications Medication Instructions Recorded Confirmed cetirizine 10 mg tablet 10 mg PO DAILY 04/14/20 10/05/22 dupilumab 300 mg/2 mL subcutaneous 300 mg subcut Q2W 09/19/22 10/05/22 pen injector ([employer]) Previous Rx's Medication Instructions Recorded fluticasone propionate 110 2 inh inhalation Q12H #36 grams 09/25/21 mcg/actuation HFA aerosol inhaler albuterol sulfate 2.5 mg/3 mL 2.5 mg (3 mL) inhalation QID PRN 05/16/23 (0.083 %) solution for nebulization shortness of breath or wheezing #75 mL Ventolin HFA 90 mcg/actuation 2 puff inhalation Q4H PRN 06/21/23 aerosol inhaler (albuterol sulfate) bronchospasm 30 days #18 grams clindamycin HCl 150 mg capsule 450 mg (3 x 150 mg) PO TID 7 days 07/01/23 #63 caps Allergies Allergy/AdvReac Type Severity Reaction Status Date / Time shellfish derived Allergy Severe ANAPHYLAXIS Verified 01/17/23 15:28 nut - unspecified [nut] Allergy Unknown + ALLERGY Verified 01/17/23 15:28 TEST cats Allergy Unknown Unknown Uncoded 04/11/22 09:30 dogs Allergy Unknown Unknown Uncoded 04/11/22 09:30 enviromental Allergy Unknown Unknown Uncoded 04/11/22 09:30 nuts Allergy Unknown Unknown Uncoded 04/11/22 09:30 shellfish Allergy Unknown anaphylaxis Uncoded 04/11/22 09:30 Review of Systems 2 Review of Systems: Constitutional: No Fever, No Chills ENT/Mouth: + dental pain upper left, + L side facial swelling, No Ear Pain, No Nasal Congestion, No Sinus Pain, No Hoarseness, No sore throat, No Rhinorrhea, No Swallowing Difficulty Cardiovascular: No Chest Pain, No SOB Respiratory: No Cough, No Sputum, No Wheezing Gastrointestinal: No Nausea, No Vomiting Skin: No Skin Lesions, No rash Neuro: No Weakness, No Numbness, No Paresthesias Yes all other systems are reviewed and are negative Constitutional: Constitutional: Reports as per [facility] Past Medical History Attestation statement: The following information was validated with the patient. Source: old records reviewed Medical History Vitamin B1 deficiency Vitamin D deficiency Multiple episodes of hypoglycemia Morbid obesity Chronic low back pain Eczema Allergic rhinitis Anxiety Asthma Neck pain Surgical History Hx of tubal ligation Hx of section Hx laparoscopic cholecystectomy History of appendectomy H/O cleft lip repair Family History Family History Maternal Grandfather Alzheimer disease Paternal Grandmother Diabetes Mother No problems noted. Father No problems noted. Brother No problems noted. Brother No problems noted. Brother No problems noted. Sister High cholesterol Son No problems noted. Daughter No problems noted. Other Mental health disorder Social History Social History Housing: House Alcohol intake: never Patient Tobacco Use Status: Never used Tobacco Smoked in Last 30 Days: No Second Hand Smoke Exposure: No Use of substances other than those prescribed or required for medical reasons: No Advance Directives: No Advance Directives Information Provided: No Current occupational status: employed Cognitive needs: No Hearing needs: No Vision needs: No Physical Exam 2 Vital Signs: Vital Signs: Last Vital Signs Temp 98.2 F 07/01/23 16:11 Pulse 75 07/01/23 16:11 Resp 16 07/01/23 16:11 BP 137/80 07/01/23 16:11 Pulse Ox 99 07/01/23 16:11 O2 Del Method Room Air 07/01/23 16:11 BMI result Body Mass Index 45.2 Const: General: healthy appearing and no acute distress O rientation/consciousness: patient oriented x3 Limitations: no limitations HEENT: Other: L sided facial swelling appriciated with tenderness. +left upper bicuspid gum ttp. No appreciable erythema or warmth, no fluctuance/induration or crepitus, No drooling, uvula midline, talking in complete sentences. Head: Yes normal to inspection Ears: hearing grossly normal bilaterally, external ears normal, TM's normal bilaterally and mastoids normal General nose exam: Normal external nose present Mouth: no drooling Throat: Yes uvula midline, No peritonsillar mass, No uvula laterally displaced and No uvular edema Eyes: General: appearance normal, both eyes and all related structures EOM: EOMs intact bilaterally Neck: Neck: Yes normal visual inspection, Yes no meningeal signs, No anterior neck swelling and No torticollis Resp: Effort & Inspection: normal respiratory effort and no stridor A uscultation: clear to auscultation bilaterally Cardio: Rate: regular rate Heart sounds: S1 normal heart sound present and S2 normal heart sound present Skin: Rashes: no rashes Wounds: no wounds Neuro: General: patient oriented x3, tone normal and no meningeal signs C ranial nerves: Yes CN's II-XII intact bilaterally Gait exam (Neuro): Normal gait present Extrem: General: Yes normal to inspection Course Course Course Narrative: This is an RME: Additional HPI, ROS, PE not included below will be deferred to primary provider. This is a 27-year-old female presenting to the emergency department with severe left-sided upper dental pain. Patient states that 2 weeks ago she was treated for a dental abscess with amoxicillin, she completed this without any relief. She states that she was seen by a dentist where she had attempted to get Novocain in this area however states that Novocain was not helping, and the dentist told her to come to the emergency room for IV antibiotics. Left-sided face is swollen, no appreciable dental abscess. Given facial swelling, will obtain labs, further ER evaluation needed. She has no fevers or chills. Plan: Labs, further ER evaluation needed -mild leukocytosis 11.4. CRP 1.66 -1845--ED care transferred to [facility] pending CT results Reevaluation(s) Reevaluation #1: Limited exam on CT secondary to dental artifact. Missing left central and lateral incisors. Nonspecific mild soft tissue swelling along the left maxilla but no evidence of buccal or alveolar fluid collection or abscess. Likely developing abscess. No signs of Bob's. Will treat with clindamycin as plan by previous provider. Patient aware. Educated patient on diagnosis and treatment plan, answered all question, patient verbalizes understanding. At this time patient will be discharged home, advised to return with new or worsening symptoms. Educated on worrisome signs and symptoms and when to return. At this time I feel comfortable discharge home. Time: 19:00 Medications Administered Discontinued Medications Generic Name Dose Route Start Last Admin Trade Name Freq PRN Reason Stop Dose Admin Clindamycin Phosphate 600 mg in 50 mls @ 100 mls/hr 07/01/23 16:44 07/01/23 18:49 Cleocin IV 07/01/23 17:13 Infused ONCE ONE Infusion Iohexol 85 ml 07/01/23 17:31 07/01/23 17:31 Iohexol 350 Mg/Ml 100 Ml Infus..Btl IV 07/01/23 17:32 85 ml ONCE ONE Administration Medical Decision Making Medical Decision Making [facility] Narrative: 27 yo female w/no sig PMHx presenting to the ED c/o left sided upper dental pain and facial swelling for the past 24 hours. On exam vital signs stable, NAD, physical exam as noted above. Concern for dental abscess vs cellulitis/edema. No appreciable drainable collection at this time. No evidence of peritonsillar abscess/retropharyngeal abscess. Low suspicion for mastoiditis, strep pharyngitis or osteomyelitis Plan: Labs, CT face, empiric IV antibiotics Differential Diagnosis Differential Diagnoses: The differential diagnosis associated with the presentation includes As above Admission/Observation Consideration of admission/observation: Escalation of care including admission/observation considered Lab Data [facility] Lab Attestation statement: I reviewed the patient's lab results. 07/01/23 15:44 07/01/23 15:44 Labs: Lab Results 07/01/23 Range/Units 15:44 WBC 11.4 H (4.8-10.8) X10*3/uL RBC 4.68 (4.20-5.50) X10*6/uL Hgb 13.8 (12.0-16.0) g/dl Hct 40.4 (37.0-47.0) % MCV 86.3 (80.0-98.0) fL MCH 29.5 (27.0-33.0) pg MCHC 34.2 (31.0-35.0) g/dl RDW 12.9 (11.0-16.0) % Plt Count 320 (160-400) X10*3/uL MPV 8.8 L (9.4-12.3) fL Immature Gran % (Auto) 0.4 (0.0-0.4) % Neut % (Auto) 72.6 (45-73) % Lymph % (Auto) 15.3 L (20-40) % [place] % (Auto) 7.3 (2-11) % Eos % (Auto) 4.0 (0-4) % Baso % (Auto) 0.4 (0-2) % Lymph # (Auto) 1.8 (1.2-4.9) X10*3/uL [place] # (Auto) 0.8 (0.1-1.2) X10*3/uL Eos # (Auto) 0.5 H (0.0-0.4) X10*3/uL Baso # (Auto) 0.0 (0.0-0.2) X10*3/uL Abs Immat Gran (auto) 0.04 H (0.00-0.03) X10*3/uL Absolute Neuts (auto) 8.3 (2.0-8.3) x10*3/uL Absolute Nucleated RBC 0.000 (0.0-0.012) X10*3/uL Nucleated RBC % (auto) 0.0 (0.0-0.2) /100WBC ESR 12 (0-20) MM/HR Sodium 138 (135-145) mmol/L Potassium 3.8 (3.3-5.1) mmol/L Chloride 108 (96-108) mmol/L Carbon Dioxide 24 (22-29) mmol/L Anion Gap 10 L (12-20) BUN 11 (9-16) mg/dL Creatinine 0.61 (0.5-1.4) mg/dL Estim Creat Clear Calc 141.8 Estimated GFR > 60 Random Glucose 85 (60-115) mg/dL Calcium 9.1 (8.4-10.2) mg/dL Total Bilirubin 0.2 (0.0-1.0) mg/dL Direct Bilirubin < 0.2 (0.0-0.5) mg/dL AST 17 (5-31) U/L ALT 28 (0-31) U/L Alkaline Phosphatase 98 (39-117) U/L C-Reactive Protein 1.66 H (< or = 0.50) mg/dL Total Protein 7.7 (6.5-8.0) g/dL Albumin 4.0 (3.5-5.0) g/dL Independent Interpretation I performed an independent interpretation of an: CT Scan Radiology Impression Discussion of test interpretation with radiology: I have reviewed the radiologist's reading. External Record Review External record reviewed: Inpatient record, Office record, Outpatient record, Prior outpatient labs, Prior outpatient radiology, Primary care record and Outside ED record Tests considered The following testing was considered but not selected: As above Prescription Management I considered prescription management with: Pain Medication and Antibiotic Discharge Plan Discharge Clinical Impression: Dental abscess Patient Disposition: Home, Self-Care Instructions: Dental Abscess (ED) Additional Instructions: Clindamycin as an antibiotic please take as prescribed You need to have close follow-up with her dentist Take ibuprofen and Tylenol for pain/swelling If symptoms persist or worsen, you are unable to swallow, difficulty speaking, or shortness of breath return to the ED CT/CT facial bones w IV con IMPRESSION: Limited imaging secondary to dental amalgam related artifact. There is missing left central and lateral incisor tooth. There is nonspecific mild soft tissue swelling along the left maxilla but no evidence of buccal or alveolar fluid collection or abscess. There is a large cavity involving left upper second molar tooth. Bilateral chronic maxillary sinus inflammatory changes. Prescriptions: New clindamycin HCl 150 mg capsule 450 mg PO TID 7 Days Qty: 63 0RF No Action fluticasone propionate 110 mcg/actuation HFA aerosol inhaler 2 inh inhalation Q12H Qty: 36 3RF albuterol sulfate 2.5 mg /3 mL (0.083 %) solution for nebulization 2.5 mg inhalation QID PRN (Reason: shortness of breath or wheezing) Qty: 75 0RF albuterol sulfate [Ventolin HFA] 90 mcg/actuation HFA aerosol inhaler 2 puff inhalation Q4H PRN (Reason: bronchospasm) 30 Days Qty: 18 1RF cetirizine 10 mg tablet 10 mg PO DAILY Dupixent Pen 300 mg/2 mL pen injector 300 mg subcut Q2W Referrals: Cathy Rios MD [Primary Care Provider] - 3 days
[2023-07-01 15:53] LABS: MANUAL DIFF FLAG NO
[2023-07-01 15:57] LABS: Basophils Percent Auto 0.4 % (0-2); Eosinophils Absolute Auto 0.5 X10*3/uL (0.0-0.4); Hematocrit 40.4 % (37.0-47.0); Hemoglobin 13.8 g/dl (12.0-16.0); Imm Gran Abs Auto 0.04 X10*3/uL (0.00-0.03); Imm Gran Pct Auto 0.4 % (0.0-0.4); Lymphocytes Absolute Auto 1.8 X10*3/uL (1.2-4.9); Lymphocytes Percent Auto 15.3 % (20-40); Mean Corpuscular HGB Conc 34.2 g/dl (31.0-35.0); Mean Corpuscular Hemoglobin 29.5 pg (27.0-33.0); Mean Corpuscular Volume 86.3 fL (80.0-98.0); Mean Platelet Volume 8.8 fL (9.4-12.3); Monocytes Absolute Auto 0.8 X10*3/uL (0.1-1.2); Monocytes Percent Auto 7.3 % (2-11); Neutrophils Absolute Auto 8.3 x10*3/uL (2.0-8.3); Neutrophils Percent Auto 72.6 % (45-73); Platelet Count 320 X10*3/uL (160-400); Red Blood Count 4.68 X10*6/uL (4.20-5.50); Red Cell Distribution Width 12.9 % (11.0-16.0); White Blood Count 11.4 X10*3/uL (4.8-10.8)
[2023-07-01 16:08] LABS: Alanine Aminotransferase 28 U/L (0-31); Alkaline Phosphatase 98 U/L (39-117); Anion Gap 10 (12-20); Aspartate Amino Transferase 17 U/L (5-31); Bilirubin Direct < 0.2 mg/dL (0.0-0.5); Bilirubin Total 0.2 mg/dL (0.0-1.0); Blood Urea Nitrogen 11 mg/dL (9-16); Calcium 9.1 mg/dL (8.4-10.2); Carbon Dioxide 24 mmol/L (22-29); Chloride 108 mmol/L (96-108); Creatinine Clr Calc Pharmacy 141.8; Estimated Glomerular Filt Rate > 60; Glucose Random 85 mg/dL (60-115); Potassium 3.8 mmol/L (3.3-5.1); Sodium 138 mmol/L (135-145); Total Protein 7.7 g/dL (6.5-8.0)
[2023-07-01 16:11] VITALS: BP 137/80; PULSE 75; RESP 16; TEMP 36.8; O2SAT 99
[2023-07-01 17:29] LABS: C Reactive Protein 1.66 mg/dL (< or = 0.50)
[2023-07-01] MEDS: iohexoL 350 MG/ML 100 ML INFUS..BTL 85 ML IV (17:31)
[2023-07-01] MEDS: Clindamycin Phosphate/D5W 600 MG/50 ML PIGGYBACK 100 MG IV (17:33)
[2023-07-01 18:03] LABS: Erythrocyte Sedimentation Rate 12 MM/HR (0-20)
== END 2023-07-01 19:03 | disposition home or self-care (01) ==
PROVIDERS: Physician Assistant; Physician Assistant Medical; Emergency Provider Emergency Medicine; PCP Internal Medicine
DX: K04.7 Periapical abscess without sinus (principal); Z79.899 Other long term (current) drug therapy
CPT/HCPCS: 36415; 70487; 80048; 80076; 85025; 85652; 86140; 96365; 99284; J0736; Q9967

== ENCOUNTER 2023-10-18 10:14 | Outpatient (AMB) | payer OTHER, SELFPAY ==
--- NOTE | 2023-10-18 11:10 | MHC.OFFWIV ---
Intake Vital Signs 10/18/23 11:14 Height 4 ft 10 in BP 118/70 Blood Pressure Location Rt brachial Position Sitting Pulse 78 Pulse Source Pulse Oximeter Temp 98.0 F Temp Source Temporal Artery Scan Pulse Oximetry (%) 98 Intake Visit Reasons: EST/ headache, nose pain (lobby) Intake Note: pt is here for headache after son head budded her while playing Patient Tobacco Use Status: Never used Tobacco Allergies shellfish derived Allergy (Severe, Verified 10/18/23 11:16) ANAPHYLAXIS nut - unspecified [nut] Allergy (Unknown, Verified 10/18/23 11:16) + ALLERGY TEST cats Allergy (Unknown, Uncoded 07/09/23 09:37) Unknown dogs Allergy (Unknown, Uncoded 07/09/23 09:37) Unknown enviromental Allergy (Unknown, Uncoded 07/09/23 09:37) Unknown nuts Allergy (Unknown, Uncoded 07/09/23 09:37) Unknown shellfish Allergy (Unknown, Uncoded 07/09/23 09:37) anaphylaxis Do you need a note to return to daycare/school/sports/work: Yes HPI EST/ headache, nose pain (lobby) HPI Details 27-year-old female patient presents today with nose/forehead pain following trauma 2 days ago. States that her toddler son was running across the room, and he ran straight into the top of her nose with his head. It did bleed at the time of injury, however has not bled since. Denies any difficulty breathing - able to move air through both nares. She has had significant tenderness at the bridge of her nose and surrounding forehead area. She denies any LOC with incident, denies any headache, nausea/vomiting, dizziness, memory issues. She has tried taking Tylenol and motrin without relief. [facility] Medical History Vitamin B1 deficiency Vitamin D deficiency Multiple episodes of hypoglycemia Morbid obesity Chronic low back pain Eczema Allergic rhinitis Anxiety Asthma Neck pain Surgical History Hx of tubal ligation Hx of section Hx laparoscopic cholecystectomy History of appendectomy H/O cleft lip repair Family History Maternal Grandfather Alzheimer disease Paternal Grandmother Diabetes Mother No problems noted. Father No problems noted. Brother No problems noted. Brother No problems noted. Brother No problems noted. Sister High cholesterol Son No problems noted. Daughter No problems noted. Other Mental health disorder Social History Housing: House Alcohol intake: never Patient Tobacco Use Status: Never used Tobacco Second Hand Smoke Exposure: No Current occupational status: employed Cognitive needs: No Hearing needs: No Vision needs: No Review of Systems Const All systems reviewed & are unremarkable except as noted in HPI and below Physical Exam Vital Signs: Last Vital Signs Temp 98.0 F 10/18/23 11:14 Pulse 78 10/18/23 11:14 BP 118/70 10/18/23 11:14 Pulse Ox 98 10/18/23 11:14 Const General: cooperative and no acute distress Orientation/consciousness: patient oriented x3 HEENT Other: Significant tenderness and mild swelling along nasal bridge. No bruising or swelling identified. Tenderness lower forehead between eyebrows. Septum and nares appear normal. No discharge. Eyes General: appearance normal, both eyes and all related structures Alignment and Position: alignment normal Periorbital: periorbital findings normal Eyelids: Yes eyelids normal Conjunctivae: conjunctivae normal Pupils: Equal, round and reactive pupils present and Pupil accommodation reflex normal Direct Ophthalmoscopy: normal light reflex and no photophobia Neck Neck: Yes no lymphadenopathy Resp Effort & Inspection: normal respiratory effort Auscultation: clear to auscultation bilaterally Cardio Rate: regular rate Rhythm: regular rhythm Skin General skin exam: no rashes or lesions noted Neuro General: patient oriented x3, gait normal, no focal motor deficits and CN's II-XI intact bilaterally Cranial nerves: Yes Equal, round and reactive pupils present Extrem General: Yes capillary refill normal and Yes no clubbing, cyanosis or edema Psych Appearance: grossly normal Mental Status: mental status grossly normal Speech and movement: Normal speech and movement present Assessment & Plan Assessment & Plan (1) Blunt trauma of nose: Code(s): S09.92XA - Unspecified injury of nose, initial encounter Qualifiers: Encounter type: initial encounter Qualified Code(s): S09.92XA - Unspecified injury of nose, initial encounter Plan: XR of nose obtained appears to be consistent with nondisplaced fx of left nasal bone. Advised patient use ice and NSAIDs and Tylenol as needed. I am going to start her on a short course of meloxicam for the pain/swelling. We reviewed indications, use, possible side effects of this. I encouraged her to ice area, and if she develops any worsening pain, swelling, or difficulty with breathing through nare(s), to f/u here, with PCP, or to request referral for ENT. She verbalizes understanding and agrees to plan. Medications: New meloxicam 15 mg PO DAILY 7 tabs 0RF 7 days S09.92XA - Unspecified injury of nose, initial encounter Coding Level of Care Code Est Pt Level 4 (58851) Diagnoses Blunt trauma of nose, initial encounter S09.92XA Encounter type: initial encounter
[2023-10-18 11:14] VITALS: BP 118/70; PULSE 78; TEMP 36.7; O2SAT 98
== END 2023-10-18 12:36 | disposition home or self-care (01) ==
PROVIDERS: PCP Internal Medicine; Visit Provider Nurse Practitioner Family
DX: S09.92XA Unspecified injury of nose, initial encounter (principal)
CPT/HCPCS: 99214

== ENCOUNTER 2023-10-18 11:47 | Outpatient (REF) | payer OTHER, SELFPAY ==
--- NOTE | ~2023-10-18 | XR_ITS ---
EXAMINATION: XR NASAL BONES CLINICAL INFORMATION: Injury to nose. Query nasal bone fracture. COMPARISON: CT facial bones dated 07/01/2023. TECHNIQUE: 3 views of the nasal bones were obtained. FINDINGS: There is a linear lucency extending through the posterior aspect of the left nasal bone. A nondisplaced fracture is not excluded. The right nasal bone appears intact. The paranasal sinuses are well aerated. The bony orbits are intact. The mastoid air cells are clear. XR/XR nasal bones min 3V IMPRESSION: There is a linear lucency extending through the posterior aspect of the left nasal bone for which a nondisplaced fracture cannot be excluded.
== END 2023-10-18 11:48 | disposition home or self-care (01) ==
LOC: HO.HMGCX 11:47
PROVIDERS: PCP Internal Medicine; Visit Provider Nurse Practitioner Family
DX: S09.92XA Unspecified injury of nose, initial encounter (principal)
CPT/HCPCS: 70160

== ENCOUNTER 2023-12-18 13:17 | Outpatient (AMB) | payer OTHER, SELFPAY ==
[2023-12-18 13:40] VITALS: BP 120/70; PULSE 76; O2SAT 98; BMI 46.0
--- NOTE | 2023-12-18 13:40 | MHC.PC.OV ---
Vital Signs 12/18/23 13:40 Height 4 ft 10 in Weight 220 lb BMI 46.0 BP 120/70 Blood Pressure Location Rt brachial Position Sitting Pulse 76 Pulse Source Pulse Oximeter Pulse Oximetry (%) 98 Oxygen Delivery Method Room Air Intake Visit Reasons: PE Intake Note: pt is here for her annual exam last pap : 12/2022 Spool Hauler Required: No Allergies shellfish derived Allergy (Severe, Verified 12/18/23 14:56) ANAPHYLAXIS nut - unspecified [nut] Allergy (Unknown, Verified 12/18/23 14:56) + ALLERGY TEST cats Allergy (Unknown, Uncoded 12/18/23 14:56) Unknown dogs Allergy (Unknown, Uncoded 12/18/23 14:56) Unknown enviromental Allergy (Unknown, Uncoded 12/18/23 14:56) Unknown nuts Allergy (Unknown, Uncoded 12/18/23 14:56) Unknown shellfish Allergy (Unknown, Uncoded 12/18/23 14:56) anaphylaxis Medication List - Last Reconciled 12/18/23 by Cathy Rios MD albuterol sulfate 2.5 mg (3 mL) inhalation QID PRN cetirizine 10 mg PO DAILY dupilumab (Dupixent) 300 mg subcut Q2W fluticasone propionate 110 mcg/actuation 2 inhalations inhalation Q12H Ventolin HFA 90 mcg/actuation (albuterol sulfate) 2 puffs inhalation Q4H PRN 30 days NS Tobacco use date assessed: 12/18/23 Dental Screening Dental Screen Date: 12/18/23 Did you have a dental visit in the last 12 months?: Yes Did you have a dental problem in the last 6 months where you did not have access to dental care?: No Was dental information given to patient?: Patient has dentist HPI PE HPI Details 28-YEAR-OLD LADY here today for physical exam. She has psoriasis, currently on Dupixent, followed by [facility] with good results. She sees Dr. Patrick Sierra at [facility] for her routine pelvic exam, last Pap smear was done 01/18/2023 which showed presence of LGSIL with positive HPV . Has mild intermittent asthma currently stable and controlled on present treatment. Complains of recurrent upper back pain, and recurrent rash under both breasts, takes Tylenol and Motrin and puts a heating pad which affords only temporary relief. Would like a referral for breast reduction surgery. She is also complaining of recurrent pain in her lower back mainly on the right, with occasional radiation of pain down right lower extremity, no accompanyin urinary incontinence, with no weakness reported. Patient states that the pain is worse when she does a lot of bending . Has has been applying icy hot to affected area, takes alternating Tylenol and Motrin, which affords only temporary relief. Complains of excessive daytime sleepiness accompanied by loud snoring and has been having episodes of coughing spells when she is sleeping which wakes her up. She has been referred to the sleep clinic in [place] last year, and home sleep study was ordered, patient however states that she was unable to do the exam properly. She was supposed to follow-up with them but never received a follow-up appointment. [facility] Medical History (Updated 12/18/23 @ 15:19 by Cathy Rios MD) History of menorrhagia LGSIL on Pap smear of cervix Upper back pain, chronic Lumbar back pain with radiculopathy affecting right lower extremity Psoriasis Vitamin B1 deficiency Vitamin D deficiency Multiple episodes of hypoglycemia Morbid obesity Allergic rhinitis Anxiety Asthma Surgical History (Updated 12/18/23 @ 15:11 by Cathy Rios MD) History of endometrial ablation Hx of tubal ligation Hx of section Hx laparoscopic cholecystectomy History of appendectomy H/O cleft lip repair Family History Maternal Grandfather Alzheimer disease Paternal Grandmother Diabetes Mother No problems noted. Father No problems noted. Brother No problems noted. Brother No problems noted. Brother No problems noted. Sister High cholesterol Son No problems noted. Daughter No problems noted. Other Mental health disorder Social History Housing: House Alcohol intake: never Patient Tobacco Use Status: Never used Tobacco Second Hand Smoke Exposure: No Current occupational status: employed Cognitive needs: No Hearing needs: No Vision needs: No Female Reproductive History Menstrual Date of last pap smear: 01/18/23 History of abnormal pap smear: Yes (DONE BY DR. SIERRA- LGSIL, POSITIVE HPV) Questionnaire PHQ-9 Over the last 2 weeks, how often have you been bothered by any of the following problems? 1. Little interest or pleasure in doing things: not at all 2. Feeling down, depressed, or hopeless: not at all 3. Trouble falling or staying asleep, or sleeping too much: several days 4. Feeling tired or having little energy: several days 5. Poor appetite or overeating: more than half the days 6. Feeling bad about yourself - or that you are a failure or have let yourself or your family down: not at all 7. Trouble concentrating on things, such as reading the newspaper or watching television: not at all 8. Moving or speaking so slowly that other people could have noticed. Or the opposite - being so fidgety or restless that you have been moving around a lot more than usual: not at all 9. Thoughts that you would be better off or of hurting yourself in some way: not at all Total score: 4 Depression Screening Interpretation: Negative Depression Screening Done: Yes 81860 - PHQ-9 Billing: Yes Source: Developed by Drs. Irving Armstrong, Marla Fall, Jeremy Ménedz and colleagues, with an educational zach from [employer]. Thrive Questionnaire Date Thrive assessed: 12/18/23 I am a: Patient What is your living situation today?: I have a steady place to live Within the past 12 months, did the food you bought not last and you didn't have the money to get more?: Never true Within the past 12 months, did you worry whether your food would run out before you got money to buy more?: Never true Do you have trouble paying for medicines?: No Do you have trouble getting transportation to medical appointments?: No Do you have trouble paying your heating and electricity bill?: No Do you have trouble taking care of your child, family member or friend?: No Do you have trouble with day-to-day activities such as bathing, preparing meals, shopping, managing finances, etc.?: No Are you currently unemployed and looking for a job?: No Are you interested in more education?: No Please select the resources that you would like help with: Housing/Residential Currently or been in a relationship where the following occur: No concerns reported THRIVE Score: 0 AUDIT C Alcohol Use Questionnaire (AUDIT-C) 1. How often do you have a drink containing alcohol?: Never 3. How often do you have six or more drinks on one occasion?: Never Total Score: 0 Score Reviewed/Action Taken: Yes ABRAHAM-7 AMB Questionnaire ABRAHAM-7 Date ABRAHAM - 7 assessed: 12/18/23 Feeling nervous, anxious, or on edge: 1 = Several days Not being able to stop or control worryin = Several days Worrying too much about different things: 1 = Several days Trouble relaxin = Not at all Being so restless that it is hard to sit still: 0 = Not at all Becoming easily annoyed or irritable: 1 = Several days Feeling afraid as if something awful might happen: 0 = Not at all Total ABRAHAM-7 score (0-4 normal; 5-9 mild; 10-14 moderate; 15-21 severe): 4 Source: Developed by Drs. Irving Armstrong, Marla Fall, Jeremy Méndez and colleagues, with an educational zach from [employer]. ABRAHAM-7 Assessment Billing ABRAHAM-7 Assessment Tool: ABRAHAM-7 Assessment 98770 ACT Questionnaire In the past 4 weeks, how much of the time did your asthma keep you from getting as much done at work, school or at home?: None of the time During the past 4 weeks, how often have you had shortness of breath?: Not at all During the past 4 weeks, how often did your asthma symptoms wake you up at night or earlier than usual in the morning?: Not at all During the past 4 weeks, how often have you had to use your rescue inhaler or nebulizer medication?: Not at all How would you rate your asthma control during the past 4 weeks?: Well controlled ACT Interpretation: Negative Score: 24 [place] Sleepiness Scale Questions Sitting and reading: slight chance of dozing Watching TV: slight chance of dozing Sitting inactive in a theater, movie etc.: would never doze As a passenger in a car for an hour without break: moderate chance of dozing Lying down in the afternoon when circumstances permit: moderate chance of dozing Sitting and talking to someone: would never doze Sitting quietly after lunch without alcohol: moderate chance of dozing In a car, while stopped for a few minutes in the traffic: would never doze ESS < 10: normal, ESS > 12: pathologic: 8 Review of Systems Const Denies fever(s), Denies headache(s) and Denies weakness Eyes Denies change in vision ENT Denies dizziness, Denies headache(s), Denies nasal congestion and Denies nasal discharge Card Denies chest pain, Denies lightheadedness, Denies palpitations and Denies dyspnea Resp Denies cough, Denies dyspnea and Denies wheezing GI Denies abdominal pain, Denies change in bowel habits and Denies heartburn Denies urinary frequency, Denies dysuria and Denies urinary urgency Musc Reports as per HPI and Reports radiating pain into limb Skin/Breast Details: Complains of recurrent rash underneath both breasts, usually during the summer months Reports as per HPI, Denies breast pain and Denies breast mass Neuro Denies dizziness, Denies headache(s) and Denies weakness Psych Reports no additional complaints Endo Details: Patient has been experiencing frequent episodes of low blood sugar levels, usually in the morning. Patient states that she has been eating 3 meals a day but it mostly consists of simple carb like white bread, cereal. Denies polydipsia, Denies polyuria and Denies palpitations Rainer/Lymph Denies easy bruising Aller/Immun Denies wheezing Physical exam (Primary Care) Vital Signs: Last Vital Signs Pulse 76 12/18/23 13:40 BP 120/70 12/18/23 13:40 Pulse Ox 98 12/18/23 13:40 Oxygen Delivery Method Room Air 12/18/23 13:40 BMI result Body Mass Index 46.0 BMI Assessment/Plan discussion: High BMI High, discussed plan: lifestyle, weight reduction, dietary and physical activity Tobacco/Smoking Status: Tobacco use Status Tobacco use date assessed 12/18/23 12/18/23 13:43 Patient Tobacco Use Status Never used Tobacco 12/18/23 13:43 PHQ-9: PHQ-9 Score PHQ-9: Total score 7 12/18/23 14:46 Depression Screening Interpretation: Negative Thrive Assessment: Date of Thrive Assessment Date Thrive assessed 12/18/23 12/18/23 13:43 Currently or been in a relationship where the following occur: No concerns reported Const Other: Alert oriented x3, no acute cardiorespiratory distress, morbidly obese, normal gait Orientation/consciousness: patient oriented x3 HENMT Head: Yes normocephalic Ears: external ears normal, TM's normal bilaterally and EAC's normal General nose exam: Normal external nose present Face and sinus: Yes face symmetric Mouth: Normal oral and palatal mucosa present, oropharynx normal and moist mucous membranes Eyes General: appearance normal, both eyes and all related structures Neck Other: Supple, no lymphadenopathy palpated, thyroid gland nonpalpable Neck: Yes no meningeal signs Chest Chest palpation & inspection: normal inspection of the chest Breast/axilla inspection: Other (Large breasts) Breast/axilla palpation: normal palpation of the breasts and normal palpation of the axillae Resp Other: Clear to auscultation bilaterally Cardio Other: S1-S2 present regular rate and rhythm GI Other: Obese abdomen, soft, nontender, no mass palpated General: Yes deferred (Currently sees [facility] OBGYN) Back/Spine/Pelvis Other: Slight tenderness on palpation over interscapular area and trapezius muscle. Exaggerated lumbar lordosis noted, slight tenderness on palpation over the right paralumbar area, negative straight leg raising sign bilaterally Skin General skin exam: no rashes or lesions noted Neuro General: patient oriented x3, gait normal, moves all extremities, Normal light touch and pain sensation, no meningeal signs and no focal motor deficits Extrem General: Yes full ROM, Yes no joint enlargement, Yes no clubbing, cyanosis or edema and Yes normal gait Psych Appearance: grossly normal and well kempt Mental Status: mental status grossly normal Speech and movement: Normal speech and movement present Affect: normal affect Attitude: cooperative Thought process: Normal thought process present Thought content: Normal thought content present Assessment and Plan Assessment & Plan (1) Annual visit for general adult medical examination with abnormal findings: Code(s): Z00.01 - Encounter for general adult medical examination with abnormal findings Plan: Will check appropriate labs. Continue with regular dental visit every 6 months and regular eye exams, at least every 2 years. Take adequate calcium in diet and vitamin-D 3 at 2000 IU per cap once a day, in addition to weight-bearing exercises to help maintain good muscle tone and weight control. Instructed to do self-breast exam, and recommended to get yearly mammogram, starting at age 40. Advised to get her COVID booster and get yearly flu shot, up-to-date with Tdap and pneumonia vaccine (2) Asthma: Code(s): J45.909 - Unspecified asthma, uncomplicated Qualifiers: Asthma severity: mild Asthma persistence: intermittent Asthma complication type: uncomplicated Qualified Code(s): J45.20 - Mild intermittent asthma, uncomplicated Plan: Stable and controlled on fluticasone and rarely needing to use her Ventolin (3) Morbid obesity: Code(s): E66.01 - Morbid (severe) obesity due to excess calories Plan: Your BMI is above the ideal range. Discussed need to increase activity and weight reduction. Recommended focusing on improving health instead of dieting. Mediterranean diet is a healthy diet that helps, limit food high in fat, sugar, and calories. Eat slowly, pay attention to portion sizes, plan your meals ahead of time, start regular physical activity, at least 150 minutes of moderate intensity exercise, or 90 minutes per week of vigorous exercise. Keeping a food diary, tracking what you eat and your physical activity can help assess what improvements you can make. There are many health problems associated with being overweight/obese, so it is important to improve your diet and exercise. There are medications and surgical options available, but Lifestyle changes are the 1st step. (4) Vitamin B1 deficiency: Code(s): E51.9 - Thiamine deficiency, unspecified Plan: Check vitamin B1 level (5) Psoriasis: Comment: Currently on Dupixent followed at [facility] Code(s): L40.9 - Psoriasis, unspecified Plan: Followed by [facility] dermatology, controlled on Dupixent (6) Daytime somnolence: Code(s): R40.0 - Somnolence Plan: Referred back to sleep clinic at [facility] unable to do her home sleep study proper (7) Loud snoring: Code(s): R06.83 - Snoring Plan: Referred to sleep clinic at [place] (8) Lumbar back pain with radiculopathy affecting right lower extremity: Code(s): M54.16 - Radiculopathy, lumbar region Plan: X-ray of lumbosacral spine order, referred for physical therapy (9) Upper back pain, chronic: Code(s): M54.9 - Dorsalgia, unspecified; G89.29 - Other chronic pain Plan: Referred to Dr. Juanita Gleason for evaluation for possible breast reduction surgery. Has tried different sports bras, and has been taking Motrin and alternating with ibuprofen, applying icy hot patches to affected area which has not afforded any relief Orders: Orders Complete Blood Count Auto Diff Today E51.9 - Thiamine deficiency, unspecified, E55.9 - Vitamin D deficiency, unspecified, E66.01 - Morbid (severe) obesity due to excess calories, J45.909 - Unspecified asthma, uncomplicated, Z13.1 - Encounter for screening for diabetes mellitus, Z13.220 - Encounter for screening for lipoid disorders Lipid Panel Today E51.9 - Thiamine deficiency, unspecified, E55.9 - Vitamin D deficiency, unspecified, E66.01 - Morbid (severe) obesity due to excess calories, J45.909 - Unspecified asthma, uncomplicated, Z13.1 - Encounter for screening for diabetes mellitus, Z13.220 - Encounter for screening for lipoid disorders Vitamin D 25-OH Total Today E51.9 - Thiamine deficiency, unspecified, E55.9 - Vitamin D deficiency, unspecified, E66.01 - Morbid (severe) obesity due to excess calories, J45.909 - Unspecified asthma, uncomplicated, Z13.1 - Encounter for screening for diabetes mellitus, Z13.220 - Encounter for screening for lipoid disorders T Spot TB Today Z11.1 - Encounter for screening for respiratory tuberculosis Basic Metabolic Panel Fasting Today E51.9 - Thiamine deficiency, unspecified, E55.9 - Vitamin D deficiency, unspecified, E66.01 - Morbid (severe) obesity due to excess calories, J45.909 - Unspecified asthma, uncomplicated, Z13.1 - Encounter for screening for diabetes mellitus, Z13.220 - Encounter for screening for lipoid disorders Alanine Aminotransferase Today E51.9 - Thiamine deficiency, unspecified, E55.9 - Vitamin D deficiency, unspecified, E66.01 - Morbid (severe) obesity due to excess calories, J45.909 - Unspecified asthma, uncomplicated, Z13.1 - Encounter for screening for diabetes mellitus, Z13.220 - Encounter for screening for lipoid disorders Aspartate Amino Transferase Today E51.9 - Thiamine deficiency, unspecified, E55.9 - Vitamin D deficiency, unspecified, E66.01 - Morbid (severe) obesity due to excess calories, J45.909 - Unspecified asthma, uncomplicated, Z13.1 - Encounter for screening for diabetes mellitus, Z13.220 - Encounter for screening for lipoid disorders Vitamin B12 and Folate Today E51.9 - Thiamine deficiency, unspecified, E55.9 - Vitamin D deficiency, unspecified, E66.01 - Morbid (severe) obesity due to excess calories, J45.909 - Unspecified asthma, uncomplicated, Z13.1 - Encounter for screening for diabetes mellitus, Z13.220 - Encounter for screening for lipoid disorders Vitamin B1 Today E51.9 - Thiamine deficiency, unspecified, E55.9 - Vitamin D deficiency, unspecified, E66.01 - Morbid (severe) obesity due to excess calories, J45.909 - Unspecified asthma, uncomplicated, Z13.1 - Encounter for screening for diabetes mellitus, Z13.220 - Encounter for screening for lipoid disorders XR lumbar spine 6V w bending Today M54.16 - Radiculopathy, lumbar region PT Evaluation and Treatment Today M54.16 - Radiculopathy, lumbar region Referrals Breast Surgery Referral G89.29 - Other chronic pain, M54.9 - Dorsalgia, unspecified Sleep Medicine Referral E66.01 - Morbid (severe) obesity due to excess calories, R06.83 - Snoring, R40.0 - Somnolence Coding Level of Care Code Est Pt Prev Care 18-39y([id number]) Diagnoses Annual visit for general adult medical examination with abnormal findings Z00.01 Mild intermittent asthma without complication J45.20 Asthma severity: mild Asthma persistence: intermittent Asthma complication type: uncomplicated Morbid obesity E66.01 Vitamin B1 deficiency E51.9 Psoriasis L40.9 Daytime somnolence R40.0 Loud snoring R06.83 Lumbar back pain with radiculopathy affecting right lower extremity M54.16 Upper back pain, chronic M54.9; G89.29 Additional Codes ABRAHAM-7 Assessment Billing - ABRAHAM-7 Assessment Tool: ABRAHAM-7 Assessment [id number] ([id number])
== END 2023-12-18 14:30 | disposition home or self-care (01) ==
PROVIDERS: PCP Internal Medicine; Visit Provider Internal Medicine
DX: Z00.00 Encounter for general adult medical examination without abnormal findings (principal); E66.01 Morbid (severe) obesity due to excess calories; Z68.42 Body mass index [BMI] 45.0-49.9, adult; J45.20 Mild intermittent asthma, uncomplicated; E51.9 Thiamine deficiency, unspecified; L40.9 Psoriasis, unspecified; R40.0 Somnolence; R06.83 Snoring; M54.16 Radiculopathy, lumbar region; M54.9 Dorsalgia, unspecified
CPT/HCPCS: 99395

== ENCOUNTER 2023-12-19 07:13 | Outpatient (REF) | payer OTHER, SELFPAY ==
[2023-12-19 10:56] LABS: MANUAL DIFF FLAG NO
[2023-12-19 11:15] LABS: Basophils Percent Auto 0.3 % (0-2); Eosinophils Absolute Auto 0.3 X10*3/uL (0.0-0.4); Hematocrit 41.9 % (37.0-47.0); Hemoglobin 14.2 g/dl (12.0-16.0); Imm Gran Abs Auto 0.02 X10*3/uL (0.00-0.03); Imm Gran Pct Auto 0.3 % (0.0-0.4); Lymphocytes Absolute Auto 1.8 X10*3/uL (1.2-4.9); Lymphocytes Percent Auto 29.4 % (20-40); Mean Corpuscular HGB Conc 33.9 g/dl (31.0-35.0); Mean Corpuscular Hemoglobin 30.1 pg (27.0-33.0); Mean Corpuscular Volume 88.8 fL (80.0-98.0); Mean Platelet Volume 9.5 fL (9.4-12.3); Monocytes Absolute Auto 0.6 X10*3/uL (0.1-1.2); Monocytes Percent Auto 9.2 % (2-11); Neutrophils Absolute Auto 3.3 x10*3/uL (2.0-8.3); Neutrophils Percent Auto 55.8 % (45-73); Platelet Count 372 X10*3/uL (160-400); Red Blood Count 4.72 X10*6/uL (4.20-5.50); Red Cell Distribution Width 12.7 % (11.0-16.0)
[2023-12-19 11:35] LABS: Alanine Aminotransferase 27 U/L (0-31); Anion Gap 15 (12-20); Aspartate Amino Transferase 17 U/L (5-31); Blood Urea Nitrogen 8 mg/dL (9-16); Calcium 9.5 mg/dL (8.4-10.2); Carbon Dioxide 22 mmol/L (22-29); Chloride 107 mmol/L (96-108); Cholesterol 169 mg/dL (<200); Estimated Average Glucose 91 mg/dL; Estimated Glomerular Filt Rate > 60; Glucose Fasting 90 mg/dL (60-99); HDL Cholesterol 43 mg/dL (>40); Hemoglobin A1c % 4.8 % (<6.0); LDL Cholesterol Calculated 110 mg/dL (<100); Sodium 140 mmol/L (135-145); Triglycerides 81 mg/dL (<150)
[2023-12-19 12:01] LABS: Vitamin D 25-OH Total 28.9 ng/mL (>30)
[2023-12-19 12:12] LABS: Folate 10.7 ng/mL (> or = 4.0); Vitamin B12 465 pg/mL (200-900)
[2023-12-21 20:33] LABS: TS Negative Control Passed; TS Panel A 2; TS Panel B 0; TS Positive Control Passed; TSpotTB Negative (Negative)
[2023-12-29 11:27] LABS: Vitamin B1 8 nmol/L (8-30)
== END 2023-12-19 07:14 | disposition home or self-care (01) ==
LOC: HO.HMGCLDS 07:13
PROVIDERS: PCP Internal Medicine; Visit Provider Internal Medicine
DX: E51.9 Thiamine deficiency, unspecified (principal); E55.9 Vitamin D deficiency, unspecified; E16.2 Hypoglycemia, unspecified; E66.01 Morbid (severe) obesity due to excess calories; J45.909 Unspecified asthma, uncomplicated; Z13.220 Encounter for screening for lipoid disorders; Z13.1 Encounter for screening for diabetes mellitus; Z11.1 Encounter for screening for respiratory tuberculosis
CPT/HCPCS: 36415; 80048; 80061; 82306; 82607; 82746; 83036; 84425; 84450; 84460; 85025; 86481

== ENCOUNTER 2023-12-23 14:50 | Outpatient (REF) | payer OTHER, SELFPAY ==
--- NOTE | ~2023-12-23 | XR_ITS ---
EXAMINATION: XR LUMBOSACRAL SPINE WITH OBLIQUES CLINICAL INFORMATION: Radiculopathy COMPARISON: X-ray lumbar sacral spine March 2021 TECHNIQUE: AP, both oblique, and lateral views of the lumbar spine. Lateral view of the lumbosacral junction. FINDINGS: The vertebral bodies and posterior elements are normal. The disc spaces are preserved and the vertebral alignment is normal. The paraspinal soft tissues are normal. Incidental note made of a surgical clip overlying the pelvis and right upper quadrant unchanged. XR/XR lumbar spine 4V min IMPRESSION: Unremarkable examination.
== END 2023-12-23 14:51 | disposition home or self-care (01) ==
LOC: HO.HMGCLDS 14:50
PROVIDERS: PCP Internal Medicine; Visit Provider Internal Medicine
DX: M54.16 Radiculopathy, lumbar region (principal)
CPT/HCPCS: 72110

== ENCOUNTER 2024-01-02 07:51 | Outpatient (AMB) | payer OTHER, SELFPAY ==
--- NOTE | 2024-01-02 08:05 | A.OFFVIS_ITS ---
Vital Signs 01/02/24 08:07 Height 4 ft 10 in Weight 219 lb 2 oz BMI 45.8 BP 108/70 Blood Pressure Location Lt brachial Position Sitting Respiration 16 Pulse 70 Pulse Source Pulse Oximeter Pulse Oximetry (%) 99 Oxygen Delivery Method Room Air Intake Visit Reasons: INP-Somnolence Intake Note: Pt presents to the office for new pt consultation for somnolence. 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 Allergies shellfish derived Allergy (Severe, Verified 01/02/24 08:06) ANAPHYLAXIS nut - unspecified [nut] Allergy (Unknown, Verified 01/02/24 08:06) + ALLERGY TEST cats Allergy (Unknown, Uncoded 01/02/24 08:06) Unknown dogs Allergy (Unknown, Uncoded 01/02/24 08:06) Unknown enviromental Allergy (Unknown, Uncoded 01/02/24 08:06) Unknown nuts Allergy (Unknown, Uncoded 01/02/24 08:06) Unknown shellfish Allergy (Unknown, Uncoded 01/02/24 08:06) anaphylaxis Medication List - Last Reconciled 01/02/24 by KASHIF Colón albuterol sulfate 2.5 mg (3 mL) inhalation QID PRN cetirizine 10 mg PO DAILY cholecalciferol (vitamin D3) 25 mcg PO DAILY 30 days dupilumab (Dupixent) 300 mg subcut Q2W fluticasone propionate 110 mcg/actuation 2 inhalations inhalation Q12H magnesium oxide 400 mg PO BEDTIME 30 days riboflavin (vitamin B2) 400 mg PO DAILY 30 days sumatriptan succinate 50 - 100 mg orally at onset of headache, may repeat in 2 hrs PRN; max 2 tabs per day or 4 tabs/week (may take with Ibuprofen) 30 days Ventolin HFA 90 mcg/actuation (albuterol sulfate) 2 puffs inhalation Q4H PRN 30 days NS HPI Comments Details: 28-yr-old female presents for new in-person patient visit for sleep consultation. Patient reports she is having difficulty falling asleep and easily wakes up at night, which has been going for a while and is getting worse. She is also now w aking up with hand numbness and pain. Also having back pains which may be affecting her ability to sleep well. Recently bought a new mattress which helps some but not completely. She is scheduled for plastic surgery consult to be considered for bilateral mammoplasty. Sleep questionnaire: Have you ever been diagnosed with a sleep disorder? No Have you ever had a sleep study in the past? Yes- HST 11/2022- inconclusive Have you ever been treated for a sleep disorder? No Do you take medications for a sleep disorder? No Do you have difficulty initiating sleep? Yes Do you have difficulty maintaining sleep? Yes. Do you wake up tired? Yes Do you have daytime tiredness or fatigue? Yes Do you easily fall asleep when inactive? Yes Do you snore? Yes Do you wake up gasping at night? No Do you have episodes of apneas? Not aware Do you have episodes of nocturnal chest pain or dyspnea? No Do you have bruxism? No Do you have headaches upon awakening? Yes- wakes up with migraines, most days. Bifrontal throbbing pain a/w photophobia, phonophobia, activity intolerance. Denies auras. Using Coffee and if ineffective Excedrin. Do you wake up with dry mouth or throat? No Do you have GERD? No longer Do you have nocturia? Yes Do you have nocturnal leg cramps? Yes Do you have symptoms of restless legs? Urge to move- states more from lower back pain. Restlessness,Creepy crawling sensation, Cramps. Starts in later evening. Do you act out your dreams? Used to sleep talk Do you have sleep paralysis? No Do you ever have hypnogenic hallucinations? No Hypersomnolence questionnaire: Have you ever had episodes of sudden weakness? Sometimes her arms will fall down Have you ever had episodes of sudden weakness associated with strong emotions? None Sleep hygiene questionnaire: What is your usual sleep routine? Usual bedtime is at 8pm; Usual wake-up time is at 6am. Do you take naps? Unscheduled naps Is your sleep environment cool, dark, and quiet? Yes Do you exercise? Not much Do you take caffeine or other stimulants? Coffee in am, occasionally in the afternoon, rarely before bed. Do you use electronics in bed? 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 [employer] Medical History (Updated 01/02/24 @ 21:14 by KASHIF Colón) Anemia History of menorrhagia LGSIL on Pap smear of cervix Upper back pain, chronic Lumbar back pain with radiculopathy affecting right lower extremity Psoriasis Vitamin B1 deficiency Vitamin D deficiency Multiple episodes of hypoglycemia Morbid obesity Allergic rhinitis Anxiety Asthma Surgical History History of endometrial ablation Hx of tubal ligation Hx of section Hx laparoscopic cholecystectomy History of appendectomy H/O cleft lip repair Family History Maternal Grandfather Alzheimer disease Paternal Grandmother Diabetes Mother No problems noted. Father No problems noted. Brother No problems noted. Brother No problems noted. Brother No problems noted. Sister High cholesterol Son No problems noted. Daughter No problems noted. Other Mental health disorder Social History Housing: House Alcohol intake: never Patient Tobacco Use Status: Never used Tobacco Second Hand Smoke Exposure: No Current occupational status: employed Cognitive needs: No Hearing needs: No Vision needs: No Physical Exam Vital Signs: Last Vital Signs Pulse 70 01/02/24 08:07 Resp 16 01/02/24 08:07 BP 108/70 01/02/24 08:07 Pulse Ox 99 01/02/24 08:07 Oxygen Delivery Method Room Air 01/02/24 08:07 BMI result Body Mass Index 45.8 Const General: no acute distress Orientation/consciousness: patient oriented x3 HEENT Other: Mallampati stage 4 Eyes Pupils: Equal, round and reactive pupils present Resp Effort & Inspection: normal respiratory effort and able to speak in complete sentences Cardio Rate: regular rate Rhythm: regular rhythm Neuro Other: Upper lip surgical scar- h/o cleft lip repair Bilateral posterior cervical tightness. Negative BUE Tinnel, Phalen, medial compression test. General: patient oriented x3 and deep tendon reflexes 2+ bilaterally Cranial nerves: Yes Facial sensation intact/muscles of mastication intact, Yes Equal, round and reactive pupils present, Yes Bilaterally intact EOM present, Yes Nystagmus not present, Yes Ability to bilaterally rotate head present and Yes Ability to bilaterally elevate shoulders present Gait exam (Neuro): Normal gait present Motor exam (neuro): 5/5 motor strength present throughout Psych Mental Status: mental status grossly normal Speech and movement: Clear speech present Attitude: cooperative Assessment & Plan Assessment & Plan (1) Sleep difficulties: Code(s): G47.9 - Sleep disorder, unspecified Category: Medical (2) Excessive daytime sleepiness: Code(s): G47.19 - Other hypersomnia Category: Medical (3) Morbid obesity: Code(s): E66.01 - Morbid (severe) obesity due to excess calories Category: Medical (4) Snoring: Code(s): R06.83 - Snoring Category: Medical (5) Nocturnal muscle cramp: Code(s): R25.2 - Cramp and spasm Category: Medical (6) Fatigue: Code(s): R53.83 - Other fatigue Category: Medical Plan Pt is advised to undergo in-lab sleep study to assess for sleep apnea and PLMS. Discussed strategies to optimize sleep position- such as selecting pillows intended for prone/side sleep positions. Recent CBC/BMP/LFTs- WNL. Recent vit D level- 28.9 L- will supplement. Check labs for additional common etiologies of fatigue and RLS s/s Start Riboflavin 400mg qam- may help reduce am migraines. Start Magnesium 400mg qhs- for migarine and nocturnal leg cramp prevention. Trial Sumatriptan 50-100mg prn, MR x's 1. Max 200mg per day. Will f/u with pt after study to discuss results and appropriate treatment optio ns. Follow-up upon review of above and in 6 months or sooner. Orders: Orders Vitamin B12 and Folate Today D64.9 - Anemia, unspecified, R25.2 - Cramp and spasm, R53.83 - Other fatigue TSH reflex Free T4 Today D64.9 - Anemia, unspecified, R25.2 - Cramp and spasm, R53.83 - Other fatigue CRP High Sensitivity Today D64.9 - Anemia, unspecified, R25.2 - Cramp and spasm, R53.83 - Other fatigue Erythrocyte Sedimentation Rate Today D64.9 - Anemia, unspecified, R25.2 - Cramp and spasm, R53.83 - Other fatigue RT PSG in-lab sleep study Today E66.01 - Morbid (severe) obesity due to excess calories, G47.19 - Other hypersomnia, R06.83 - Snoring Magnesium Today D64.9 - Anemia, unspecified, R25.2 - Cramp and spasm, R53.83 - Other fatigue Ferritin Today D64.9 - Anemia, unspecified, R25.2 - Cramp and spasm, R53.83 - Other fatigue Creatine Kinase Total Today D64.9 - Anemia, unspecified, R25.2 - Cramp and spas m, R53.83 - Other fatigue IRON PROFILE Today D64.9 - Anemia, unspecified, R25.2 - Cramp and spasm, R53.83 - Other fatigue Medications: New sumatriptan succinate 50 - 100 mg orally at onset of headache, may repeat in 2 hrs PRN; max 2 tabs per day or 4 tabs/week (may take with Ibuprofen) 12 tabs 6RF migraine headache 30 days cholecalciferol (vitamin D3) 25 mcg PO DAILY 30 caps 6RF 30 days riboflavin (vitamin B2) 400 mg PO DAILY 30 tabs 6RF 30 days magnesium oxide may hold for loose stools 400 mg PO BEDTIME 30 tabs 6RF 30 days Coding Level of Care Code New Pt Level 4 (88372) Diagnoses Sleep difficulties G47.9 Excessive daytime sleepiness G47.19 Morbid obesity E66.01 Snoring R06.83 Nocturnal muscle cramp R25.2 Fatigue R53.83 Shelby Sleepiness Scale Questions Sitting and reading: high chance of dozing Watching TV: high chance of dozing Sitting inactive in a theater, movie etc.: moderate chance of dozing As a passenger in a car for an hour without break: high chance of dozing Lying down in the afternoon when circumstances permit: high chance of dozing Sitting and talking to someone: would never doze Sitting quietly after lunch without alcohol: high chance of dozing In a car, while stopped for a few minutes in the traffic: would never doze ESS < 10: normal, ESS > 12: pathologic: 17
[2024-01-02 08:07] VITALS: BP 108/70; PULSE 70; RESP 16; O2SAT 99; BMI 45.8
== END 2024-01-02 09:12 | disposition home or self-care (01) ==
PROVIDERS: PCP Internal Medicine; Visit Provider Nurse Practitioner Family
DX: G47.9 Sleep disorder, unspecified (principal); G47.19 Other hypersomnia; E66.01 Morbid (severe) obesity due to excess calories; R06.83 Snoring; R25.2 Cramp and spasm; R53.83 Other fatigue
CPT/HCPCS: 99204

== ENCOUNTER → 2024-01-02 07:51 | Outpatient (BNVA) | payer OTHER, SELFPAY | PROVIDERS: PCP Internal Medicine; Visit Provider Nurse Practitioner Family | DX: G47.9 Sleep disorder, unspecified (principal); G47.19 Other hypersomnia; R06.83 Snoring; R25.2 Cramp and spasm; R53.83 Other fatigue; E66.01 Morbid (severe) obesity due to excess calories; Z68.42 Body mass index [BMI] 45.0-49.9, adult | CPT/HCPCS: 99202 ==

== ENCOUNTER 2024-01-02 09:21 | Outpatient (REF) | payer OTHER, SELFPAY ==
[2024-01-02 18:13] LABS: Iron 86 mcg/dL (30-160); Magnesium 2.2 mg/dL (1.6-2.6); Percent Iron Saturation 28 % (15-50); Total Iron Binding Capacity 309 mcg/dL (228-428); Unsaturated Iron Binding 223 ug/dL
[2024-01-02 18:37] LABS: Ferritin 94 ng/mL (10-122); TSH reflex Free T4 0.65 uIU/mL (0.32-4.0)
[2024-01-02 18:40] LABS: Folate 9.6 ng/mL (> or = 4.0); Vitamin B12 479 pg/mL (200-900)
[2024-01-02 18:44] LABS: Erythrocyte Sedimentation Rate 7 MM/HR (0-20)
[2024-01-03 05:54] LABS: CRP High Sensitivity 5.5 mg/L
== END 2024-01-02 09:22 | disposition home or self-care (01) ==
LOC: HO.HKASLDS 09:21
PROVIDERS: Visit Provider Nurse Practitioner Family
DX: R25.2 Cramp and spasm (principal); D64.9 Anemia, unspecified; R53.83 Other fatigue
CPT/HCPCS: 36415; 82550; 82607; 82728; 82746; 83540; 83735; 84443; 85652; 86141

== ENCOUNTER → 2024-01-14 20:30 | Outpatient (REF) | payer OTHER, SELFPAY | LOC: HO.SL 20:30 | PROVIDERS: PCP Internal Medicine; Visit Provider Nurse Practitioner Family | DX: G47.19 Other hypersomnia (principal); R06.83 Snoring; E66.01 Morbid (severe) obesity due to excess calories | CPT/HCPCS: 95810 ==

== ENCOUNTER → 2024-01-14 23:00 | Outpatient (BNV) | payer OTHER, SELFPAY | PROVIDERS: PCP Internal Medicine; Visit Provider Psychiatry & Neurology Neurology | DX: R06.83 Snoring (principal); G47.19 Other hypersomnia | CPT/HCPCS: 95810 ==

== ENCOUNTER 2024-01-30 14:00 | Outpatient (RCR) | payer OTHER, SELFPAY ==
--- NOTE | 2024-01-17 13:52 | MHC.PT.EP ---
[facility] [place] Office [place] Office [place] Office [address] Phyllis Garcia [address] [phone] F: [phone] F: [phone] F: [phone] F: [phone] Physical Therapy Plan of Care Date of Evaluation: 01/17/24 Date of Surgery: NA Diagnosis: Radiculopathy, lumbar region Assessment: Crys is a 28 year old female who is referred to PT for radiculopathy, lumbar region . She reports of having gradual onset of back pain about 6 years back- (after the of her first child) and it got worse after of her 2nd child- 2 years back. She denies any trauma or falls. On PT examination she presented with 5-9/10 pain in low back which is worse with sitting for more 20 minutes, standing, bending, cleaning and walking, TTP along T10 to S2 paraspinals and spinous process, decreased lumbar ROM, decreased muscle strength, altered posture and gait. She lives with her family and is independent with all ADLS but has pain with them. Her partner assists her with IADLS as needed. 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 She would benefit from skilled PT to address the aforementioned impairments and improve tolerance to functional activities. Frequency and Duration: The patient will be seen 2/week for 5 weeks Short Term Goals: 1. Pt will have 50% decrease in pain which will enable her to sleep through the night in 2 weeks. 2. Pt will be to move trunk through all planes of motion without pain which will enable her to dress her lower body without pain in 3 weeks. 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 Pt will demonstrate an increase in muscle strength by 1 grade which will enable her to perform work activities without pain in 5 weeks. 2. Pt will be independent with [facility] for symptom management and maintenance following d/c in 5 weeks. Treatment Plan: Modalities to reduce pain, spasms and effusion. Manual therapy to restore motion and function. Therapeutic exercise to improve strength and flexibility. Neuromuscular re-education for posture and balance. Therapeutic activities to return to functional activities of daily living. Electronically signed by: Glory Antonio PT DPT Please sign and return to therapist. Thank you for your referral.
--- NOTE | 2024-02-28 13:16 | MHC.PT.DC ---
[facility] [place] Office [place] Office [place] Office [address] Phyllis Garcia [address] [phone] F: [phone] F: [phone] F: [phone] F: [phone] Physical Therapy Discharge Report Diagnosis: Radiculopathy, lumbar region Date of Surgery: NA Date of Evaluation: 01/17/24 Date of Discharge: 02/28/24 Treatments to Date: 3 Cancellations to Date: 3 No Shows to Date: 2 Discharge Status: Visit Non-compliance Discharge Summary: Crys attended on 3 PT visits. She canceled 3 and no showed 2. She is therefore being d/c from PT for non compliance. Electronically signed by: Glory Antonio, PT DPT Please sign and return to therapist. Thank you for your referral.
== END 2024-02-28 13:16 | disposition home or self-care (01) ==
LOC: HO.PT 14:00
PROVIDERS: PCP Internal Medicine; Visit Provider Internal Medicine
DX: M54.16 Radiculopathy, lumbar region (principal)
CPT/HCPCS: 97110; 97112; 97161

== ENCOUNTER 2024-07-06 11:15 | Outpatient (AMB) | payer OTHER, SELFPAY ==
--- NOTE | 2024-07-06 11:19 | A.OFFVIS_ITS ---
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: No Accompanied by: Self / Same As Patient Allergies shellfish derived Allergy (Severe, Verified 07/06/24 11:31) ANAPHYLAXIS nut - unspecified [nut] Allergy (Unknown, Verified 07/06/24 11:31) + ALLERGY TEST cats Allergy (Unknown, Uncoded 01/02/24 08:06) Unknown dogs Allergy (Unknown, Uncoded 01/02/24 08:06) Unknown enviromental Allergy (Unknown, Uncoded 01/02/24 08:06) Unknown nuts Allergy (Unknown, Uncoded 01/02/24 08:06) Unknown shellfish Allergy (Unknown, Uncoded 01/02/24 08:06) anaphylaxis Medication List - Last Reconciled 07/06/24 by KASHIF Colón albuterol sulfate 2.5 mg (3 mL) inhalation QID PRN cetirizine 10 mg PO DAILY cholecalciferol (vitamin D3) 25 mcg PO DAILY 30 days dupilumab (Dupixent) 300 mg subcut Q2W gabapentin 100 - 300 mg (1 - 3 x 100 mg) PO BEDTIME 30 days magnesium oxide 400 mg PO BEDTIME 30 days riboflavin (vitamin B2) 400 mg PO DAILY 30 days rizatriptan 5 - 10 mg (0.5 - 1 x 10 mg) PO Q2H PRN 21 days HPI Comments Details: 28-yr-old female presents for follow-up of sleep study, sleep difficulties, and migraine headache. 01/14/2024 In-lab PSG showed sleep efficiency 85%, AHI 0.6/hour of sleep, REM AHI 0/hour. Average SpO2 96% with O2 truman 92%. Izyb-vo-[id number] snoring. Average pulse rate 68 bpm, highest heart rate 214 bpm. Periodic limb movement of sleep (PLMS) 45.1/hour and PLMS arousal index 1.5/hour. 01/02/2024, labs: ESR 7, magnesium 2.2, iron 86, TIBC 309,& sat 28, ferritin 94, total CK 74, B12 or 79, folate 9.6, TSH 0.65- WNL CRP 5.5 elevated. She is still struggling to sleep- especially initiating sleep. Finds herself restless, tossing and turning. She always has an urge to move. Notices this most after dinner, when trying to relax. Pt reports that she is feeling more prone to her arms and legs falling asleep if she is sitting for a while. She is prone to lower back pain. She reports her headaches are ok- typically a couple a month. However, last week she had a 3 day migraine, which is not typical for her, denies associated illness. She states Sumatriptan usually helps, but the sumatriptan plus an NSAID and excedrin did not help the 3 day migraine. However the Sumatriptan does make her sleepy so can only take it when home. She is tolerating B2 and Mag well. 01/02/2024, initial HPI: 28-yr-old female presents for new in-person patient visit for sleep consultat [facility]. Patient reports she is having difficulty falling asleep and easily wakes up at night, which has been going for a while and is getting worse. She is also now waking up with hand numbness and pain. Also having back pains which may be affecting her ability to sleep well. Recently bought a new mattress which helps some but not completely. She is scheduled for plastic surgery consult to be considered for bilateral mammoplasty. Sleep questionnaire: Have you ever been diagnosed with a sleep disorder? No Have you ever had a sleep study in the past? Yes- HST 11/2022- inconclusive Have you ever been treated for a sleep disorder? No Do you take medications for a sleep disorder? No Do you have difficulty initiating sleep? Yes Do you have difficulty maintaining sleep? Yes. Do you wake up tired? Yes Do you have daytime tiredness or fatigue? Yes Do you easily fall asleep when inactive? Yes Do you snore? Yes Do you wake up gasping at night? No Do you have episodes of apneas? Not aware Do you have episodes of nocturnal chest pain or dyspnea? No Do you have bruxism? No Do you have headaches upon awakening? Yes- wakes up with migraines, most days. Bifrontal throbbing pain a/w photophobia, phonophobia, activity intolerance. Denies auras. Using Coffee and if ineffective Excedrin. Do you wake up with dry mouth or throat? No Do you have GERD? No longer Do you have nocturia? Yes Do you have nocturnal leg cramps? Yes Do you have symptoms of restless legs? Urge to move- states more from lower back pain. Restlessness,Creepy crawling sensation, Cramps. Starts in later evening. Do you act out your dreams? Used to sleep talk Do you have sleep paralysis? No Do you ever have hypnogenic hallucinations? No Hypersomnolence questionnaire: Have you ever had episodes of sudden weakness? Sometimes her arms will fall down Have you ever had episodes of sudden weakness associated with strong emotions? None Sleep hygiene questionnaire: What is your usual sleep routine? Usual bedtime is at 8pm; Usual wake-up time is at 6am. Do you take naps? Unscheduled naps Is your sleep environment cool, dark, and quiet? Yes Do you exercise? Not much Do you take caffeine or other stimulants? Coffee in am, occasionally in the afternoon, rarely before bed. Do you use electronics in bed? 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[employer] [employer] [facility] Medical History (Updated 07/06/24 @ 12:53 by KASHIF Colón) Anemia History of menorrhagia LGSIL on Pap smear of cervix Upper back pain, chronic Lumbar back pain with radiculopathy affecting right lower extremity Psoriasis Vitamin B1 deficiency Vitamin D deficiency Multiple episodes of hypoglycemia Morbid obesity Allergic rhinitis Anxiety Asthma Surgical History History of endometrial ablation Hx of tubal ligation Hx of section Hx laparoscopic cholecystectomy History of appendectomy H/O cleft lip repair Family History Maternal Grandfather Alzheimer disease Paternal Grandmother Diabetes Mother No problems noted. Father No problems noted. Brother No problems noted. Brother No problems noted. Brother No problems noted. Sister High cholesterol Son No problems noted. Daughter No problems noted. Other Mental health disorder Social History Housing: House Alcohol intake: never Patient Tobacco Use Status: Never used Tobacco Second Hand Smoke Exposure: No Current occupational status: employed Cognitive needs: No Hearing needs: No Vision needs: No Physical Exam Vital Signs: Last Vital Signs Pulse 82 07/06/24 11:31 BP 120/86 07/06/24 11:31 Pulse Ox 97 07/06/24 11:31 Oxygen Delivery Method Room Air 07/06/24 11:31 BMI result Body Mass Index 46.8 Const General: no acute distress Orientation/consciousness: patient oriented x3 Resp Effort & Inspection: normal respiratory effort and able to speak in complete sentences Neuro Other: Upper lip surgical scar- h/o cleft lip repair General: patient oriented x3 Gait exam (Neuro): Normal gait present Psych Mental Status: mental status grossly normal Speech and movement: Clear speech present Attitude: cooperative Assessment & Plan Assessment & Plan (1) Sleep difficulties: Code(s): G47.9 - Sleep disorder, unspecified Category: Medical (2) Periodic limb movements of sleep: Code(s): G47.61 - Periodic limb movement disorder Category: Medical (3) Restless leg syndrome: Code(s): G25.81 - Restless legs syndrome Category: Medical (4) Nocturnal muscle cramp: Code(s): R25.2 - Cramp and spasm Category: Medical (5) Migraine without aura: Code(s): G43.009 - Migraine without aura, not intractable, without status migrainosus Category: Medical Qualifiers: Status migrainosus presence: without status migrainosus Intractability: not intractable Qualified Code(s): G43.009 - Migraine without aura, not intractable, without status migrainosus Plan For sleep difficulties, RLS and Periodic limb movement of sleep (PLMS) s/s: Reviewed In-lab PSG results, which were consistent with PLMS. Patient also has symptoms suggested above RLS. List of resources shared with patient on sleep education, such as ?navigating life with restless legs? by Dr. Marshall Trial of gabapentin 100 mg cap-100-300 mg daily at bedtime (or alternatively, 1 cap after dinner, 1 cap 1 hour before bed, and 1 cap at bedtime). Continue vitamin-D supplement. Reviewed labs- Ferritin at 92, WNL. Hour if RLS s/s worsen, could consider subpleural blunting iron further. CRP elevated- advised to optimize CV risk factors through optimizing healthy diet, increasing regular physical activity. Recent CBC/BMP/LFTs- WNL. We will recheck labs and round out lab workup for RLS/PLMS and BUE/BLE paresthesias s/s. For episodic migraine without aura prevention: Continue Riboflavin 400mg qam- may help reduce am migraines. Continue Magnesium 400mg qhs- for migarine and nocturnal leg cramp prevention. For acute treatment of episodic migraine without aura: Discontinue Sumatriptan 100 mg p.r.n.- usually effective, but causes sleepiness which limits use. Trial Rizatriptan 10mg tab, 1/2 - 1 tab (5-10mg) at onset of headache, may repeat in 2 hours. Max of 2 tabs (200mg) per 24 hours. May adjunct with OTC Tylenol 650mg every 4 hours, Ibuprofen (liquigel) 600mg every 6 hours, or Naproxen (liquigel) 440mg every 12 hrs as needed. May trial Benadryl 25-50 mg every 6-8 hours as needed for more severe or prolonged migraine attack. Follow-up upon review of above and in 6 months or sooner. Orders: Orders Vitamin C Today D64.9 - Anemia, unspecified, E51.9 - Thiamine deficiency, unspecified, E55.9 - Vitamin D deficiency, unspecified, R53.83 - Other fatigue Vitamin B12 and Folate Today D64.9 - Anemia, unspecified, E51.9 - Thiamine deficiency, unspecified, E55.9 - Vitamin D deficiency, unspecified, R53.83 - Other fatigue Vitamin D 25-OH (D2 and D3) Today D64.9 - Anemia, unspecified, E51.9 - Thiamine deficiency, unspecified, E55.9 - Vitamin D deficiency, unspecified, R53.83 - Other fatigue Vitamin B1 Today D64.9 - Anemia, unspecified, E51.9 - Thiamine deficiency, unspecified, E55.9 - Vitamin D deficiency, unspecified, R53.83 - Other fatigue Vitamin B6 Today D64.9 - Anemia, unspecified, E51.9 - Thiamine deficiency, unspecified, E55.9 - Vitamin D deficiency, unspecified, R53.83 - Other fatigue Lyme IgG/IgM w/reflex to WB Today D64.9 - Anemia, unspecified, E51.9 - Thiamine deficiency, unspecified, E55.9 - Vitamin D deficiency, unspecified, R53.83 - Other fatigue Medications: New rizatriptan max 2 tabs per day or 4 tabs per week 5 - 10 mg (0.5 - 1 x 10 mg) PO Q2H 21 days PRN 12 tabs 3RF migraine headache gabapentin 100 - 300 mg (1 - 3 x 100 mg) PO BEDTIME 30 days 90 caps 3RF Discontinued sumatriptan succinate Discontinued Reason: Doctor's Order (0.5 - 1 x 100 mg) 50 - 100 mg orally at onset of headache, may repeat in 2 hrs PRN; max 2 tabs per day or 4 tabs/week (may take with Ibuprofen) 30 days 12 tabs 6RF migraine headache Coding Level of Care Code Est Pt Level 4 (85855) Diagnoses Sleep difficulties G47.9 Periodic limb movements of sleep G47.61 Restless leg syndrome G25.81 Nocturnal muscle cramp R25.2 Migraine without aura and without status migrainosus, not intractable G43.009 Status migrainosus presence: without status migrainosus Intractability: not intractable
[2024-07-06 11:31] VITALS: BP 120/86; PULSE 82; O2SAT 97; BMI 46.8
--- OUTSIDE RECORDS SUMMARY | 2024-07-06 12:27 | XMS_ITS | Encounter Summary ---
Author Organization [facility] Address [address] [place] [address] Phone Care Team Providers Care Rn Provider Relations Name Role Phone Mariam Mcgarry NP Primary Care Provider [phone] Encounter Details Date Type Department Care Team (Late st Contact Info) Description 09/18/2016 [place]ation [facility] [place] [address] [place] [address] Family Medicine, Physician [address] [place] [address] Social History Tobacco Use Types Packs/Day Years Used Date Smoking Tobacco: Never Comments:Never smoker Comments Unknown Sex and Gender Information Value Date Recorded Sex Assigned at Not on file Legal Sex Female 5:15 PM EDT Gender Identity Not on file Sexual Orientation Not on file documented as of this encounter Plan of Treatment Not on file documented as of this encounter Visit Diagnoses Not on filedocumented in this encounter Care Teams Rn Provider Relations Relationship Specialty Start Date End Date Mariam Mcgarry NP PCP - General 01/04/17 documented as of this encounter
--- OUTSIDE RECORDS SUMMARY | 2024-07-06 12:27 | XMS_ITS | Encounter Summary ---
Author Organization [facility] Address [address] [place] [address] Phone Care Team Providers Care Husbandry Person Name Role Phone Mariam Mcgarry NP Primary Care Provider [phone] Encounter Details Date Type Department Care Team (Late st Contact Info) Description 01/10/2017 Conversion Encounter [facility] - [address] [address] Social History Tobacco Use Types Packs/Day Years [...] on filedocumented in this encounter Care Teams Husbandry Person Relationship Specialty Start Date End Date Mariam Mcgarry NP PCP - General 01/04/17 documented as of this encounter
--- OUTSIDE RECORDS SUMMARY | 2024-07-06 12:27 | XMS_ITS | Encounter Summary ---
Author Organization [facility] Address [address] [place] [address] Phone Care Team Providers Care Body Trimmer Upholsterer Name Role Phone Mariam Mcgarry NP Primary Care Provider [phone] Encounter Details Date Type Department Care Team (Late st Contact Info) Description 09/17/2016 Documentation [facility] [place] [address] [place] [address] Family Medicine, Physician [address] [place] [address] Social History Tobacco Use Types Packs/Day Years [...] on filedocumented in this encounter Care Teams Body Trimmer Upholsterer Relationship Specialty Start Date End Date Mariam Mcgarry NP PCP - General 01/04/17 documented as of this encounter
--- OUTSIDE RECORDS SUMMARY | 2024-07-06 12:27 | XMS_ITS | Clinical Summary ---
Author Organization [facility] Address [address] [place] [address] Phone Care Team Providers Care Lna Name Role Phone ZeferinoMariam BRIANNE Primary Care Provider [phone] Immunizations Immunization Administration Dates Next Due DTaP 5 02/11/2002, 0,04/08/1999, 999,02/15/1998 H1N1 04/13/2009 HPV, Quadrivalent 12/20/2010,02/23/2010,12/20/19 10 Hep A, ped/adol 12/30/2013,12/20/2010 Hep B, ped/adol 06/08/1998,01/10/1998,1997 Hib (PRP-T) 06/22/1999, 9,06/08/1998, 998 IPV 02/11/2002, 9,06/08/1998, 998 Influenza Split 03/19/2013,02/02/2011,02/06/2010 Influenza, injectable, quadrivalent 03/28/2016,1 ,04/07/2014 Influenza, injectable, trivalent 04/13/2009,03/28 MMR 02/11/2002,03/02/1999 Meningococcal Conj (Menactra) MCV4P 12/31/2014,0 12/17/2008 Tdap 12/17/2008 Varicella 12/17/2007,03/02/1999 Family History Relation Name Status Comments Father Alive Father: asthma/ allergies Half-Brother 1 Half brother (P): Asthma, Asthma Half-Brother 2 Half brother (P): Asthma, Asthma Mother Alive Mother: asthma/ allergies Other Family history of Diabetes mellitus, Family history of Asthma, Family history of Obesity, Family history of Elevated cholesterol Sister Alive Sister: ADD/ADH D Social History Tobacco Use Types Packs/Day Years Used Date Smoking Tobacco: Never Comments:Never smoker Comments Unknown Sex and Gender Information Value Date Recorded Sex Assigned at Not on file Legal Sex Female 5:15 PM EDT Gender Identity Not on file Sexual Orientation Not on file Last Filed Vital Signs Vital Sign Reading Time Taken Comments Blood Pressure 116/75 05/05/2016 12:00 AM EST Pulse 80 05/05/2016 12:00 AM EST Temperature 36.6 ??C (97.9 ??F) 05/05/2016 12:[address] Respiratory Rate - - Oxygen Saturation 98% 02/25/2016 12:00 AM EDT Inhaled Oxygen Concentration - - Weight 69.1 kg (152 lb 6.4 oz) 05/05/2016 12:00 AM EST Height 149.2 cm (4' 10.75 ) 05/05/2016 12:00 AM EST Body Mass Index 31.05 05/05/2016 12:00 AM EST Plan of Treatment Health Maintenance Due Date Last Done Comments DTaP,Tdap,and Td Vaccines (6 - Td or Tdap) 12/17/2018 12/17/2008, 02/11/2002, 06/22/1999, Additional history exists Influenza Vaccines (#1) 2023 03/28/20 16, 03/14/2015, 04/07/2014, Additional history exists COVID-19 Vaccine ( season) 2024 Hepatitis B Vaccines Completed 06/08/1998, 01/10/1998, 1997 HIB Vaccines Completed 06/22/1999, 07/25, 06/08/1998, Additional history exists IPV Vaccines Completed 02/11/2002, 11/1998, 06/08/1998, Additional history exists MMR Vaccines Completed 02/11/2002, 03/02/1999 Varicella Vaccines Completed 12/17/2007, 03/02/1999 HPV Vaccines Completed 12/20/2010, 01/27, 12/19/2009 Hepatitis A Vaccines Completed 12/30/2013, 12/21/19 11 Meningococcal Vaccine Completed 12/31/2014, 009 Men B Vaccine Aged Out No longer elig ible based on patient's age to complete this topic Pneumococcal Vaccine Aged Out No long er eligible based on patient's age to complete this topic Procedures * Due to [place] [employer] law, this organization might not be sharing sensitive test results. Procedure Name Priority Date/Time Associated Diagnosis Comments CHLAMYDIA AND GONORRHEA, AMPLIFIED Routine 01/02/2016 2:15 PM EDT from Last 3 Months or Most Recently Relevant to Health Maintenance Results * Due to [place] [employer] law, this organization might not be sharing sensitive test results. * Chlamydia and Gonorrhoea, Amplified (01/02/2016 2:15 PM EDT) Pathologist [facility] URINE GC AMP PROBE NEGATIVE [facility] Comment: No Neisseria Gonorrhoeae RNA detected in this patient's sample (REFERENCE RANGE/NORMAL VALUE: NOT DETECTED) NOTE: This test uses federal appellate clerk-mediated amplification method to detect rRNA from C.Trachomatis and N.Gonorrhoeae. A negative result does not preclude infection. In the case of a negative urine result, testing of an endocervical(female) or urethral(male) specimen is recommended if there is high clinical suspicion of infection. The performance characteristics of this test have not been evaluated in children. The Aptima Combo2 assay is not intended for the evaluation of suspected sexual abuse or for other medico-legal indications. The ordering provider should assess if the patient had consensual sex without risk of sexual abuse. Consult the [facility] if needed. Contact phone number . Therapeutic failure or success cannot be determined with the Aptima Combo2 assay since nucleic acid may persist following appropriate antimicrobial therapy. The Centers for Disease Control and Prevention (CDC) recommends confirmatory retesting using culture or a different nucleic acid amplification test when positive results occur, if indicated. Testing performed or reported by [facility], a Service of [facility], Jerica Garcia, [place] [address] CLIA ??[id number] Justin Queen MD, PhD, Hip Hop Artist URINE CHLAMYDIA AMP PROBE NEGATIVE [facility] Comment: No Chlamydia Trachomatis RNA detected in this patient's sample (REFERENCE RANGE/NORMAL VALUE: NOT DETECTED) 01/02/2016 2:15 PM EDT Narrative [facility] - 01/02/2016 2:15 PM EDT URINE CHLAMYDIA GC AMP PROBE us Mariam Mcgarry NP LAB MICROBIOLOGY - GENERAL ORDER BETH Final Result [facility] [address] [place] [address], from Last 3 Months or Most Recently Relevant to Health Maintenance Care Teams Lna Relationship Specialty Start Date End Date Mariam Mcgarry NP PCP - General 01/04/17
--- OUTSIDE RECORDS SUMMARY | 2024-07-06 12:27 | XMS_ITS | Encounter Summary ---
Author Organization [facility] Address [address] [place] [address] Phone Care Team Providers Care It Software Developer Name Role Phone Mariam Mcgarry NP Primary Care Provider [phone] Encounter Details Date Type Department Care Team (Late st Contact Info) Description 02/29/2016 Documentation [facility] [place] [address] [place] [address] Family Medicine, Physician [address] [place] [address] Social History Tobacco Use Types Packs/Day Years Used Date Smoking Tobacco: Never Assessed Comments Unknown Sex and Gender Information Value Date Recorded Sex Assigned at Not on file Legal Sex Female 5:15 PM EDT Gender Identity Not on file Sexual Orientation Not on file documented as of this encounter Plan of Treatment Not on file documented as of this encounter Visit Diagnoses Not on filedocumented in this encounter Care Teams It Software Developer Relationship Specialty Start Date End Date Mariam Mcgarry NP PCP - General 01/04/17 documented as of this encounter
--- OUTSIDE RECORDS SUMMARY | 2024-07-06 12:28 | XMS_ITS | Encounter Summary ---
Author Organization [facility] Address [address] [place] [address] Phone Care Team Providers Care Quality Inspector Name Role Phone Mariam Mcgarry NP Primary Care Provider [phone] Encounter Details Date Type Department Care Team (Late st Contact Info) Description 03/15/2015 Documentation [facility] [place] Medicine [address] [place] [address] Family Medicine, Physician [address] [place] [address] Social History Tobacco Use Types Packs/Day Years [...] on filedocumented in this encounter Care Teams Quality Inspector Relationship Specialty Start Date End Date Mariam Mcgarry NP PCP - General 01/04/17 documented as of this encounter
--- OUTSIDE RECORDS SUMMARY | 2024-07-06 12:28 | XMS_ITS | Encounter Summary ---
Author Organization [facility] Address [address] [place] [address] Phone Care Team Providers Care Carpentry Foreman Name Role Phone Mariam Mcgarry NP Primary Care Provider [phone] Encounter Details Date Type Department Care Team (Late st Contact Info) Description 10/22/2012 Document[place] [facility] [place] [address] [place] [address] Family Medicine, Physician [address] [place] [address] Social History Tobacco Use Types Packs/Day Years [...] on filedocumented in this encounter Care Teams Carpentry Foreman Relationship Specialty Start Date End Date Mariam Mcgarry NP PCP - General 01/04/17 documented as of this encounter
--- OUTSIDE RECORDS SUMMARY | 2024-07-06 12:28 | XMS_ITS | Encounter Summary ---
Author Organization [facility] Address [address] [place] [address] Phone Care Team Providers Care Solderer Electronic Name Role Phone Mariam Mcgarry NP Primary Care Provider [phone] Encounter Details Date Type Department Care Team (Late st Contact Info) Description 04/20/2014 Documentation [facility] [place] [address] [place] [address] Family Medicine, Physician [address] [place] [address] Social History Tobacco Use Types Packs/Day Years [...] on filedocumented in this encounter Care Teams Solderer Electronic Relationship Specialty Start Date End Date Mariam Mcgarry NP PCP - General 01/04/17 documented as of this encounter
--- OUTSIDE RECORDS SUMMARY | 2024-07-06 12:28 | XMS_ITS | Clinical Summary ---
Author Organization [facility] Address [address] [place] [address] Care Team Providers Care Agronomist Name Role Phone Unavailable Primary Care Provider Unavailabl e Social History Tobacco Use Types Packs/Day Years Used Date Smoking Tobacco: Never Assessed Comments Unknown Sex and Gender Information Value Date Recorded Sex Assigned at Not on file Legal Sex Female 11:29 PM EST Gender Identity Not on file Sexual Orientation Not on file Plan of Treatment Health Maintenance Due Date Last Done Comments DTaP,Tdap,and Td Vaccines (1 - Tdap) 2004 HPV Vaccines (1 - 3-dose series) 2012 Hepatitis B Vaccines (1 of 3 - 19+ 3-dose series) 2016 Cervical Cancer Screening: P ap Smear 2018 COVID-19 Vaccine ( - 2023-2 5 season) 2024 Influenza Vaccine (#1) 2024 HIB Vaccines Aged Out No longer eligi ble based on patient's age to complete this topic Hepatitis A Vaccines Aged Out No long er eligible based on patient's age to complete this topic IPV Vaccines Aged Out No longer eligi ble based on patient's age to complete this topic MMR Vaccines Aged Out No longer eligi ble based on patient's age to complete this topic Meningococcal ACWY Vaccine Aged Out N o longer eligible based on patient's age to complete this topic Meningococcal B Vacine Aged Out No lo nger eligible based on patient's age to complete this topic Pneumococcal Vaccine: Pediat rics (0 to 5 Years) and At-Risk Patients (6 to 64 Years) Aged Out No longer eligible b ased on patient's age to complete this topic RSV Immunization Patients Un pedro 20 months Aged Out No longer eligible b ased on patient's age to complete this topic Varicella Vaccines Aged Out No longer eligible based on patient's age to complete this topic
--- OUTSIDE RECORDS SUMMARY | 2024-07-06 12:28 | XMS_ITS | Encounter Summary ---
Author Organization [facility] Address [address] [place] [address] Phone Care Team Providers Care Senior Scrum Master Name Role Phone Mariam Mcgarry NP Primary Care Provider [phone] Encounter Details Date Type Department Care Team (Late st Contact Info) Description 07/17/2013 Documentation [facility] [place] [address] [place] [address] Family Medicine, Physician [address] [place] [address] Social History Tobacco Use Types Packs/Day Years [...] on filedocumented in this encounter Care Teams Senior Scrum Master Relationship Specialty Start Date End Date Mariam Mcgarry NP PCP - General 01/04/17 documented as of this encounter
--- OUTSIDE RECORDS SUMMARY | 2024-07-06 12:28 | XMS_ITS | Encounter Summary ---
Author Organization [facility] Address [address] [place] [address] Phone Care Team Providers Care Nurse Practitioner Name Role Phone Mariam Mcgarry NP Primary Care Provider [phone] Encounter Details Date Type Department Care Team (Late st Contact Info) Description 04/28/2014 [place] [facility] [place] [address] [place] [address] Family Medicine, Physician [address] [place] [address] Social History Tobacco Use Types Packs/Day Years [...] on filedocumented in this encounter Care Teams Nurse Practitioner Relationship Specialty Start Date End Date Mariam Mcgarry NP PCP - General 01/04/17 documented as of this encounter
--- OUTSIDE RECORDS SUMMARY | 2024-07-06 12:28 | XMS_ITS | Encounter Summary ---
Author Organization [facility] Address [address] [place] [address] Phone Care Team Providers Care Economics Lecturer Name Role Phone Mariam Mcgarry NP Primary Care Provider [phone] Encounter Details Date Type Department Care Team (Late st Contact Info) Description 03/22/2015 Documentation [facility] [place] [address] [place] [address] Family Medicine, Physician [address] [place] [address] Social History Tobacco Use Types Packs/Day Years [...] on filedocumented in this encounter Care Teams Economics Lecturer Relationship Specialty Start Date End Date Mariam Mcgarry NP PCP - General 01/04/17 documented as of this encounter
--- OUTSIDE RECORDS SUMMARY | 2024-07-06 12:28 | XMS_ITS | Encounter Summary ---
Author Organization [facility] Address [address] [place] [address] Phone Care Team Providers Care Bootmaker Hand Name Role Phone Mariam Mcgarry NP Primary Care Provider [phone] Encounter Details Date Type Department Care Team (Late st Contact Info) Description 08/03/2009 [place]ation [facility] [place] [address] [place] [address] Family Medicine, Physician [address] [place] [address] Social History Tobacco Use Types Packs/Day Years [...] on filedocumented in this encounter Care Teams Bootmaker Hand Relationship Specialty Start Date End Date Mariam Mcgarry NP PCP - General 01/04/17 documented as of this encounter
--- OUTSIDE RECORDS SUMMARY | 2024-07-06 12:28 | XMS_ITS | Encounter Summary ---
Author Organization [facility] Address [address] [place] [address] Phone Care Team Providers Care Manager Quality Name Role Phone Mariam Mcgarry NP Primary Care Provider [phone] Encounter Details Date Type Department Care Team (Late st Contact Info) Description 05/24/2014 Documentation [facility] [place] Family Medicine [address] [place] [address] Family Medicine, Physician [address] [place] [address] Social History Tobacco Use Types Packs/Day Years [...] on filedocumented in this encounter Care Teams Manager Quality Relationship Specialty Start Date End Date Mariam Mcgarry NP PCP - General 01/04/17 documented as of this encounter
--- OUTSIDE RECORDS SUMMARY | 2024-07-06 12:28 | XMS_ITS | Clinical Summary ---
Author Organization [facility] Address [address] [facility] [address] [place] [address] Care Team Providers Care Automotive Airconditioning Mechanic Name Role Phone Unavailable Primary Care Provider Unavailabl e Allergies Active Allergy Reactions Criticality Noted Date Comments Other 02/26/2024 Medications D3-1000 25 MCG (1000 UT) capsule Take 25 mcg by mouth Once per day. 4 Active Ventolin HFA 108 (90 Base) MCG/ACT inhaler TAKE 2 PUFFS BY MOUTH EVERY 4 HOURS NEEDED FOR BRONCHOSPASM 4 Active fluticasone (Flovent HFA) 44 MCG/ACT inhaler Inhale. 2 Active acetaminophen (Tylenol) 500 MG tabletIndicatio ns:Severe dental caries,Non-rest orable tooth Take 1 tablet (500 mg) by mouth every 6 (six) hours if needed for mild pain for up to 20 doses. 20 tablet 4 Active ibuprofen 600 MG tabletIndicatio ns:Severe dental caries,Non-rest orable tooth Take 1 tablet (600 mg) by mouth every 6 (six) hours if needed for mild pain for up to 20 doses. 20 tablet 4 Active Active Problems Problem Noted Date Diagnosed Date Non-restorable tooth 12/16/2023 Severe dental caries 12/16/2023 Encounters Date Type Department Care Team Description 04/29/2024 11:30 AM EST Office Visit [facility] [address] [place] [address] Jose Amato DDS Severe dental caries (Primary Dx); Non-restorable tooth from Last 3 Months Social History Tobacco Use Types Packs/Day Years Used Date Smoking Tobacco: Former Cigarettes Passive Smoke Exposure: Never Smokeless Tobacco: Former Tobacco Cessation:Counseling Given: Not Answered Alcohol Use Standard Drinks/Week Comments Defer 0 (1 standard drink = 0.6 oz pur e alcohol) Comments Unknown Sex and Gender Information Value Date Recorded Sex Assigned at Female 12/16/2023 10:15 AM EDT Legal Sex Female 10:10 AM EDT Gender Identity Female 12/16/2023 10:15 AM EDT Sexual Orientation Straight 12/16/2023 3: 49 PM EDT Last Filed Vital Signs Vital Sign Reading Time Taken Comments Blood Pressure 126/66 02/26/2024 8:07 AM EDT Pulse - - Temperature - - Respiratory Rate - - Oxygen Saturation - - Inhaled Oxygen Concentration - - Weight - - Height - - Body Mass Index - - Plan of Treatment Health Maintenance Due Date Last Done Comments Dental Oral Exam 1997 Dental Prophylaxis 1997 Dental X-Ray: Bitewings 1997 Depression Screening 1997 HIV Screening 1997 Lipid Panel 1997 SDOH Screening 1997 Alcohol/Substance Use Screening 2009 Family Planning (PISQ) 2012 Hepatitis C Screening 12/11/2015 Pneumococcal Vaccine: Pediatrics (0 to 5 Years) and At-Risk Patients (6 to 49) Years) (1 of 2 - PCV) 2016 Pap Smear 2018 COVID-19 Vaccine (3 - season) 2024 09/06/2020, 08/15/2020 Influenza Vaccine (#1) 2024 , 04/06/2021, 04/06/2021, Additional history exists Tobacco Screening 04/29/2025 04/29/2024 Dental X-Ray: Full Mouth 12/16/2026 12/16/2023 DTaP/Tdap/Td Vaccines (8 - Td or Tdap) 11/23/2031 11/22/2021, 02/24/2018, 12/17/2008, Additional history exists Zoster Vaccines (1 of 2) 12/11/2047 RSV Patients and Patients Aged 60 years or older (1 - 1-dose 75+ series) 2072 Hepatitis B Vaccines Completed 06/08/1998, 01/10/1998, 1997 HIB Vaccines Completed 06/22/1999, 07/25, 06/08/1998, Additional history exists IPV Vaccines Completed 02/11/2002, 11/1998, 06/08/1998, Additional history exists HPV Vaccines Completed 12/20/2010, 01/27, 12/19/2009 Hepatitis A Vaccines Completed 12/30/2013, 12/21/19 11 Meningococcal Vaccine Completed 12/31/2014, 009 RSV under 20 months Aged Out No longe r eligible based on patient's age to complete this topic Rotavirus Vaccines Aged Out No longer eligible based on patient's age to complete this topic Procedures Procedure Name Priority Date/Time Associated Diagnosis Comments 3 EXTRACTION, ERUPTED TOOTH REQUIRING REMOVAL OF BONE AND/OR SECTIONING OF TOOTH, AND INCLUDING ELEVATION OF MUCOPERIOSTEAL FLAP IF INDICATED Routine 04/29/2024 11:30 AM EST ADJUNCTIVE GENERAL SERVICES - UNCLASSIFIED TREATMENT - PALLIATIVE TREATMENT OF DENTAL PAIN - PER VISIT Routine 04/29/2024 11:30 AM EST INTRAORAL - PERIAPICAL FIRST RADIOGRAPHIC IMAGE Routine 04/29/2024 11:30 AM EST ADJUNCTIVE GENERAL SERVICES - PROFESSIONAL VISITS - CASE PRESENTATION, SUBSEQUENT TO DETAILED AND EXTENSIVE TREATMENT PLANNING Routine 04/29/2024 11:30 AM EST PANORAMIC RADIOGRAPHIC IMAGE Routine 12/16/2023 3:30 PM EDT from Last 3 Months or Most Recently Relevant to Health Maintenance Insurance [address] [place] [address] [facility] MEDICAID STAND ADULT
--- OUTSIDE RECORDS SUMMARY | 2024-07-06 12:28 | XMS_ITS | Encounter Summary ---
Author Organization [facility] Address [address] [place] [address] Phone Care Team Providers Care Hand Driller Name Role Phone Mariam Mcgarry NP Primary Care Provider [phone] Encounter Details Date Type Department Care Team (Late st Contact Info) Description 08/03/2009 Documentation [facility] [place] Family Medicine [address] [place] [address] Family Medicine, Physician [address] [place] [address] Social History Tobacco Use Types Packs/Day Years [...] on filedocumented in this encounter Care Teams Hand Driller Relationship Specialty Start Date End Date Mariam Mcgarry NP PCP - General 01/04/17 documented as of this encounter
--- OUTSIDE RECORDS SUMMARY | 2024-07-06 12:28 | XMS_ITS | Encounter Summary ---
Author Organization [facility] Address [address] [place] [address] Phone Care Team Providers Care Store Stocker Name Role Phone Mariam Mcgarry NP Primary Care Provider [phone] Encounter Details Date Type Department Care Team (Late st Contact Info) Description 09/22/2012 Documentation [facility] [place] Family Medicine [address] [place] [address] Family Medicine, Physician [address] [place] [address] Social History Tobacco Use Types Packs/Day Years [...] on filedocumented in this encounter Care Teams Store Stocker Relationship Specialty Start Date End Date Mariam Mcgarry NP PCP - General 01/04/17 documented as of this encounter
--- OUTSIDE RECORDS SUMMARY | 2024-07-06 12:28 | XMS_ITS | Encounter Summary ---
Author Organization [facility] Address [address] [place] [address] Phone Care Team Providers Care Chair Car Attendant Name Role Phone Mariam Mcgarry NP Primary Care Provider [phone] Encounter Details Date Type Department Care Team (Late st Contact Info) Description 09/08/2014 Documentation [facility] [place] [address] [place] [address] Family Medicine, Physician [address] [place] [address] Social History Tobacco Use Types Packs/Day Years [...] on filedocumented in this encounter Care Teams Chair Car Attendant Relationship Specialty Start Date End Date Mariam Mcgarry NP PCP - General 01/04/17 documented as of this encounter
--- OUTSIDE RECORDS SUMMARY | 2024-07-06 12:28 | XMS_ITS | Encounter Summary ---
Author Organization [facility] Address [address] [place] [address] Phone Care Team Providers Care Music Rehabilitation Therapist Name Role Phone Mariam Mcgarry NP Primary Care Provider [phone] Encounter Details Date Type Department Care Team (Late st Contact Info) Description 10/19/2009 Documentation [facility] [place] Medicine [address] [place] [address] Family Medicine, Physician [address] [place] [address] Social History Tobacco Use Types Packs/Day Years [...] on filedocumented in this encounter Care Teams Music Rehabilitation Therapist Relationship Specialty Start Date End Date Mariam Mcgarry NP PCP - General 01/04/17 documented as of this encounter
--- OUTSIDE RECORDS SUMMARY | 2024-07-06 12:28 | XMS_ITS | Encounter Summary ---
Author Organization [facility] Address [address] [place] [address] Phone Care Team Providers Care Campus Dean Name Role Phone Mariam Mcgarry NP Primary Care Provider [phone] Encounter Details Date Type Department Care Team (Late st Contact Info) Description 12/15/2014 Documentation [facility] [place] [address] [place] [address] Family Medicine, Physician [address] [place] [address] Social History Tobacco Use Types Packs/Day Years [...] on filedocumented in this encounter Care Teams Campus Dean Relationship Specialty Start Date End Date Mariam Mcgarry NP PCP - General 01/04/17 documented as of this encounter
--- OUTSIDE RECORDS SUMMARY | 2024-07-06 12:28 | XMS_ITS | Encounter Summary ---
Author Organization [facility] Address [address] [place] [address] Phone Care Team Providers Care Manager Motor Name Role Phone Mariam Mcgarry NP Primary Care Provider [phone] Encounter Details Date Type Department Care Team (Late st Contact Info) Description 09/19/2012 Documentation [facility] [place] Medicine [address] [place] [address] Family Medicine, Physician [address] [place] [address] Social History Tobacco Use Types Packs/Day Years [...] filedocumented in this encounter Care Teams Manager Motor Relationship Specialty Start Date End Date Mariam Mcgarry NP PCP - General 01/04/17 documented as of this encounter
--- OUTSIDE RECORDS SUMMARY | 2024-07-06 12:28 | XMS_ITS | Encounter Summary ---
Author Organization [facility] Address [address] [place] [address] Phone Care Team Providers Care Extruding Press Operator Name Role Phone Mariam Mcgarry NP Primary Care Provider [phone] Encounter Details Date Type Department Care Team (Late st Contact Info) Description 08/23/2009 Documentation [facility] [place] [address] [place] [address] Family Medicine, Physician [address] [place] [address] Social History Tobacco Use Types Packs/Day Years [...] on filedocumented in this encounter Care Teams Extruding Press Operator Relationship Specialty Start Date End Date Mariam Mcgarry NP PCP - General 01/04/17 documented as of this encounter
== END 2024-07-06 12:21 | disposition home or self-care (01) ==
PROVIDERS: PCP Internal Medicine; Visit Provider Nurse Practitioner Family
DX: G47.61 Periodic limb movement disorder (principal); G25.81 Restless legs syndrome; G43.009 Migraine without aura, not intractable, without status migrainosus
CPT/HCPCS: 99214

== ENCOUNTER → 2024-07-06 11:15 | Outpatient (BNVA) | payer OTHER, SELFPAY | PROVIDERS: PCP Internal Medicine; Visit Provider Nurse Practitioner Family | DX: G47.9 Sleep disorder, unspecified (principal); G47.61 Periodic limb movement disorder; G25.81 Restless legs syndrome; R25.2 Cramp and spasm; G43.009 Migraine without aura, not intractable, without status migrainosus | CPT/HCPCS: 99212 ==

== ENCOUNTER 2024-08-17 08:54 | Outpatient (REF) | payer OTHER, SELFPAY ==
[2024-08-17 11:19] LABS: Folate 7.3 ng/mL (> or = 4.0); Vitamin B12 519 pg/mL (200-900)
[2024-08-18 18:24] LABS: Lyme Abs Screen <0.90 index
[2024-08-21 16:03] LABS: Vitamin B6 8.9 ng/mL (2.1-21.7)
[2024-08-22 15:53] LABS: Vitamin D 25-OH, D2 <4 ng/mL; Vitamin D 25-OH, D3 15 ng/mL; Vitamin D 25-OH, Total 15 ng/mL (30-100)
[2024-08-25 14:43] LABS: Vitamin B1 7 nmol/L (8-30)
== END 2024-08-17 08:55 | disposition home or self-care (01) ==
LOC: HO.LAB 08:54
PROVIDERS: PCP Internal Medicine; Visit Provider Nurse Practitioner Family
DX: E51.9 Thiamine deficiency, unspecified (principal); E55.9 Vitamin D deficiency, unspecified; R53.83 Other fatigue; D64.9 Anemia, unspecified
CPT/HCPCS: 36415; 82306; 82607; 82746; 84207; 84425; 86617; 86618

== ENCOUNTER 2024-12-31 09:32 | Outpatient (REF) | payer OTHER, SELFPAY ==
--- OUTSIDE RECORDS SUMMARY | 2024-12-31 09:59 | XMS_ITS | Clinical Summary ---
Author Organization [facility] Address [address] [place] [address] Care Team Providers Care Military Technology Manager Name Role Phone Unavailable Primary Care Provider [...] Comments DTaP,Tdap,and Td Vaccines (1 - Tdap) 2016 Hepatitis B Vaccines (1 of 3 - 19+ 3-dose series) 2016 Cervical Cancer Screening: P ap Smear 2018 COVID-19 Vaccine (2023-2 5 season) 2024 Depression Screening 05/27/2024 Influenza Vaccine (#1) 2025 HIB Vaccines Aged Out No longer eligi ble based on patient's age to complete this topic HPV Vaccines Aged Out No longer eligi ble [...] age to complete this topic Meningococcal B Vaccine Aged Out No l onger eligible based on patient's age to complete this topic Pneumococcal Vaccine: Pediat rics (0 to 5 Years) and At-Risk Patients (6 to 49 Years) Aged Out No longer eligible b ased on patient's age to complete this topic RSV Immunization Patients Un pedro 20 months Aged Out No longer eligible b ased on patient's age to complete this topic Varicella Vaccines Aged Out No longer eligible based on patient's age to complete this topic
--- OUTSIDE RECORDS SUMMARY | 2024-12-31 09:59 | XMS_ITS | Clinical Summary ---
Author Organization [employer] Address [address] [facility] [address] [place] [address] Care Team Providers Care Carton Filler Name Role Phone Unavailable Primary Care Provider [...] to 20 doses. 20 tablet 4 Active Additional Information Patient not taking.Reported on 12/24/2024 ibuprofen 600 MG tabletIndicatio ns:Severe dental caries,Non-rest orable tooth Take 1 tablet (600 mg) by mouth every 6 (six) hours if needed for mild pain for up to 20 doses. 20 tablet 4 Active Additional Information Patient not taking.Reported on 12/24/2024 acetaminophen (Tylenol) 500 MG tablet Take 1 tablet (500 mg) by mouth every 6 (six) hours if needed for mild pain for up to 20 doses. 20 tablet 5 Active Additional Information Patient not taking.Reported on 12/24/2024 ibuprofen 600 MG tablet Take 1 tablet (600 mg) by mouth every 6 (six) hours if needed for mild pain for up to 20 doses. 20 tablet Active Additional Information Patient not taking.Reported on 12/24/2024 Dupilumab (Dupixent) 300 MG/2ML solution auto-injector Inject under the skin. Active Active Problems Problem Noted Date Diagnosed Date Non-restorable tooth 12/16/2023 Severe dental caries 12/16/2023 Encounters Date Type Department Care Team Description 12/24/2024 8:00 AM EDT Office Visit [facility] [address] [place] [address] Roni Mercado DDS 11/16/2024 9:30 AM EDT Office Visit [facility] [address] [place] [address] Niesha Booth DMD 10/12/2024 8:30 AM EDT Office Visit [facility] [address] [place] [address] Niesha Booth DMD 10/09/2024 11:30 AM EDT Office Visit [facility] [address] [place] [address] Shakira Lynch DDS from Last 3 Months Social History Tobacco [...] Sign Reading Time Taken Comments Blood Pressure 128/86 11/16/2024 9:35 AM EDT Pulse 82 11/16/2024 9:35 AM EDT Temperature - - Respiratory Rate - - Oxygen Saturation - - Inhaled Oxygen Concentration - - Weight - - Height - - Body Mass Index - - Plan of Treatment Upcoming Encounters Date Type Department Care Team ([facility] st Contact Info) Description 01/04/2025 2:30 PM EDT Office Visit [facility] [address] [place] [address] Brown Pascal, DDS [address] [place] [address] Health Maintenance Due Date Last Done Comments Depression Screening 1997 HIV Screening 1997 Lipid Panel 1997 SDOH Screening 1997 Disability Screening 1997 Alcohol/Substance Use Screening 2009 Family Planning (PISQ) 2012 Hepatitis C Screening 12/11/2015 Pneumococcal Vaccine: Pediatrics (0 to 5 Years) and At-Risk Patients (6 to 49) Years (1 of 2 - PCV) 2016 Pap Smear 2018 COVID-19 Vaccine ( season) 2024 09/06/2020, 08/15/2020 Influenza Vaccine (#1) 2025 , 04/06/2021, 04/06/2021, Additional history exists Dental Oral Exam 06/27/2025 12/24/2024 Dental Prophylaxis 06/27/2025 12/24/2024 Tobacco Screening 12/24/2025 12/24/2024 Dental X-Ray: Bitewings 12/25/2025 12/24/2024, 10/09 Dental X-Ray: Full Mouth 12/26/2027 12/24/2024, 11/25 DTaP/Tdap/Td Vaccines (8 - Td or Tdap) [...] 12/21/19 11 Meningococcal Vaccine Completed 12/31/2014, 009 Meningococcal B Vaccine Aged Out No l onger eligible based on patient's age to complete this topic RSV under 20 months Aged Out No longe r eligible based on patient's age to complete this topic Rotavirus Vaccines Aged Out No longer eligible based on patient's age to complete this topic Procedures Procedure Name Priority Date/Time Associated Diagnosis Comments PROPHYLAXIS - ADULT Routine 12/24/2024 8 :00 AM EDT COMPREHENSIVE ORAL EVALUATION - NEW OR ESTABLISHED PATIENT Routine 12/24/2024 8:00 AM EDT INTRAORAL - COMPLETE SERIES OF RADIOGRAPHIC IMAGES Routine 12/24/2024 8:00 AM EDT 28 O COMPOSITE FILLING Routine 5 12:00 AM EDT 30 SEALANT - PER TOOTH Routine 5 12:00 AM EDT 31 O AMALGAM FILLING Routine 12/24/2024 12:00 AM EDT 29 O COMPOSITE FILLING Routine 5 12:00 AM EDT 28 D COMPOSITE FILLING Routine 5 12:00 AM EDT 28 M COMPOSITE FILLING Routine 5 12:00 AM EDT 19 O COMPOSITE FILLING Routine 5 12:00 AM EDT 21 O COMPOSITE FILLING Routine 5 12:00 AM EDT 20 O COMPOSITE FILLING Routine 5 12:00 AM EDT 18 O COMPOSITE FILLING Routine 5 12:00 AM EDT 12 O COMPOSITE FILLING Routine 5 12:00 AM EDT 13 DO COMPOSITE FILLING Routine 12/25/19 25 12:00 AM EDT 8 DL COMPOSITE FILLING Routine 5 12:00 AM EDT 7 ML COMPOSITE FILLING Routine 5 12:00 AM EDT 4 MOD COMPOSITE FILLING Routine 12/25/19 25 12:00 AM EDT 5 DO COMPOSITE FILLING Routine 5 12:00 AM EDT CASE PRESENTATION, DETAILED AND EXTENSIVE TREATMENT PLANNING Routine 11/16/2024 9:30 AM EDT 2 ENDODONTIC THERAPY, MOLAR TOOTH Routine 11/16/2024 9:30 AM EDT CASE PRESENTATION, DETAILED AND EXTENSIVE TREATMENT PLANNING Routine 10/12/2024 8:30 AM EDT 2 ENDO - CLEAN AND SHAPE Routine 025 8:30 AM EDT CASE PRESENTATION, DETAILED AND EXTENSIVE TREATMENT PLANNING Routine 10/09/2024 11:30 AM EDT BITEWING - SINGLE RADIOGRAPHIC IMAGE Routine 10/09/2024 11:30 AM EDT INTRAORAL - PERIAPICAL FIRST RADIOGRAPHIC IMAGE Routine 10/09/2024 11:30 AM EDT LIMITED ORAL EVALUATION - PROBLEM FOCUSED Routine 10/09/2024 11:30 AM EDT from Last 3 Months Insurance [facility] MEDICAID STAND ADULT DENTAL - [facility] FULL (MEDICAID)
--- OUTSIDE RECORDS SUMMARY | 2024-12-31 09:59 | XMS_ITS | Encounter Summary ---
Author Organization [facility] Address [address] [place] [address] Phone Care Team Providers Care Teller Supervisor Name Role Phone Mariam Mcgarry NP Primary Care Provider Encounter Details Date Type Department Care Team (Late st Contact Info) Description 01/10/2017 Conversion Encounter [facility] - [address] [address] Social History Tobacco Use Types Packs/Day Years [...] on filedocumented in this encounter Care Teams Teller Supervisor Relationship Specialty Start Date End Date Mariam Mcgarry NP PCP - General 01/04/17 documented as of this encounter
--- OUTSIDE RECORDS SUMMARY | 2024-12-31 09:59 | XMS_ITS | Clinical Summary ---
Author Organization [facility] Address [address] [place] [address] Phone Care Team Providers Care Process Tank Tender Name Role Phone Cathy Rios MD Primary Care Provider Allergies Active Allergy Reactions Criticality Noted Date Comments Amoxicillin 09/17/2020 Shellfish Containing Products 2021 Social History Tobacco Use Types Packs/Day Years Used Date Smoking Tobacco: Never Smokeless Tobacco: Never Alcohol Use Standard Drinks/Week Comments Yes 0 (1 standard drink = 0.6 oz pur e alcohol) Education Answer Date Recorded Are you interested in more education? Not on patrick e 09/22/2022 Are you concerned about learning? Not on file 09/22/2022 No 09/22/2022 No 09/22/2022 Digital Access Answer Date Recorded No 10/20/2022 No 10/20/2022 No 10/20/2022 Reliable internet access at home? Not on file 10/20/2022 Device with a working camera? Not on file Comments Unknown Sex and Gender Information Value Date Recorded Sex Assigned at Female 09/17/2020 6:40 PM EDT Legal Sex Female 6:26 PM EDT Gender Identity Female 09/17/2020 6:40 PM EDT Sexual Orientation Not on file Last Filed Vital Signs Vital Sign Reading Time Taken Comments Blood Pressure 122/80 03/12/2022 3:24 AM EDT Pulse 70 03/12/2022 3:24 AM EDT Temperature 36.7 C (98 F) 03/12/2022 3:24 AM EDT Respiratory Rate 16 03/12/2022 3:24 AM EDT Oxygen Saturation 98% 03/12/2022 3:24 AM EDT Inhaled Oxygen Concentration - - Weight 97.5 kg (215 lb) 03/11/2022 11:25 PM EDT Height 147.3 cm (4' 10 ) 03/11/2022 11:25 PM EDT Body Mass Index 44.94 03/11/2022 11:25 PM EDT Plan of Treatment Health Maintenance Due Date Last Done Comments DEPRESSION SCREENING 2009 HEPATITIS C SCREENING 12/11/2015 HIV ONE-TIME SCREENING (18-65 YEARS) 12/11/2015 PAP SMEAR 2018 SMOKING STATUS SCREENING (Once After 26 Yrs) 12/11/2023 COVID-19 VACCINE (2023- season) 2024 09/06/2020, 08/15/2020 Adult Td,Tdap Booster 11/23/2031 11/22/2021 , 02/24/2018, 12/17/2008 HIB VACCINES Completed 06/22/1999, 07/25, 06/08/1998, Additional history exists HEPATITIS A VACCINES Completed 12/30/2013, 12/21/19 11 MENINGOCOCCAL VACCINES (ACWY) Completed 12/31/2014, 12/17/2008 MENINGOCOCCAL VACCINES (B) Aged Out N o longer eligible based on patient's age to complete this topic PNEUMOCOCCAL VACCINES (0-49 years) Aged Out No longer eligible based on patient's age to complete this topic Medical Devices Not on file [place] [address] [place] [address] [place] [address] [place] [address] [place] [address] [place] [address] [place] [address] [place] [address] [place] [address] ACO [employer] [facility] [facility] Care Teams Process Tank Tender Relationship Specialty Start Date End Date Cathy Rios MD [address] [place] [address] PCP - General Internal Medicine 08/26/21 Additional Source Comments The information contained in this document represents components of the legal health record. It is not the complete legal health record.[facility]
[2025-01-04 12:38] LABS: Vitamin D 25-OH, D2 <4 ng/mL; Vitamin D 25-OH, D3 20 ng/mL; Vitamin D 25-OH, Total 20 ng/mL (30-100)
== END 2024-12-31 09:33 | disposition home or self-care (01) ==
LOC: HO.LAB 09:32
PROVIDERS: PCP Internal Medicine; Visit Provider Nurse Practitioner Family
DX: E55.9 Vitamin D deficiency, unspecified (principal); E51.9 Thiamine deficiency, unspecified
CPT/HCPCS: 36415; 82306; 84425

== ENCOUNTER 2025-02-03 10:55 | Outpatient (AMB) | payer OTHER, SELFPAY ==
[2025-02-03 12:04] VITALS: BP 124/90; PULSE 94; RESP 16; TEMP 36.8; O2SAT 99; BMI 48.9
--- NOTE | 2025-02-03 12:04 | A.OFFPC_ITS ---
Vital Signs 02/03/25 12:04 Height 4 ft 10 in Weight 234 lb BMI 48.9 BP 124/90 H Blood Pressure Location Lt brachial Position Sitting Respiration 16 Pulse 94 Pulse Source Pulse Oximeter Temp 98.2 F Temp Source Oral Pulse Oximetry (%) 99 Oxygen Delivery Method Room Air Intake Visit Reasons: PE Intake Note: Pt is here today for her PE Is last menstrual period known: Yes Last menstrual period: 12/05/24 (stopping) Allergies shellfish derived Allergy (Severe, Verified 02/03/25 12:20) ANAPHYLAXIS nut - unspecified (nut) Allergy (Unknown, Verified 02/03/25 12:20) + ALLERGY TEST cats Allergy (Unknown, Uncoded 02/03/25 12:20) Unknown dogs Allergy (Unknown, Uncoded 02/03/25 12:20) Unknown enviromental Allergy (Unknown, Uncoded 02/03/25 12:20) Unknown nuts Allergy (Unknown, Uncoded 02/03/25 12:20) Unknown shellfish Allergy (Unknown, Uncoded 02/03/25 12:20) anaphylaxis Medication List - Last Reconciled 02/03/25 by Cathy Rios MD albuterol sulfate 2.5 mg (3 mL) inhalation QID PRN cetirizine 10 mg PO DAILY cholecalciferol (vitamin D3) 50 mcg (2 x 25 mcg (1,000 unit)) PO DAILY 90 days dupilumab (Dupixent) 300 mg subcut Q2W gabapentin 100 - 300 mg (1 - 3 x 100 mg) PO BEDTIME 30 days magnesium oxide 400 mg PO BEDTIME 30 days riboflavin (vitamin B2) 400 mg PO DAILY 30 days rizatriptan 5 - 10 mg (0.5 - 1 x 10 mg) PO Q2H PRN 21 days thiamine HCl (vitamin B1) 100 mg PO DAILY 90 days Tobacco use date assessed: 02/03/25 Dental Screening Dental Screen Date: 02/03/25 Did you have a dental visit in the last 12 months?: Yes Did you have a dental problem in the last 6 months where you did not have access to dental care?: Yes Was dental information given to patient?: Patient has dentist HPI PE HPI Details 29-year-old lady with history of migrain e headache, psoriasis, mild intermittent asthma, restless leg syndrome, vitamin-D deficiency and vitamin B1 deficiency and obesity, here today for her physical exam. She sees [facility] for routine Pap and pelvic exam, with last Pap smear showing LGSIL with positive HPV in 2022. She had another Pap smear in 2023 , and has another appointment for her Pap scheduled later this year The patient reports asthma exacerbations triggered by weather changes and illness, managed with an inhaler and nebulizer solution. Has Eczema, currently on Dupixent, administered every other week for over a year, with improvement noted. experiences intermittent migraines, with a referral to [facility] for further evaluation due to widened optic nerves. Restless leg syndrome: Managed with gabapentin 300 mg at night, with some relief reported. Vitamin deficiencies: The patient is on supplements for vitamin D and B1 deficiencies. The patient interested starting GLP 1 agonist, advised to contact [facility] regarding weight loss medication prerequisites and is attempting dietary changes independently. [facility] Medical History Anemia History of menorrhagia LGSIL on Pap smear of cervix Upper back pain, chronic Lumbar back pain with radiculopathy affecting right lower extremity Psoriasis Vitamin B1 deficiency Vitamin D deficiency Multiple episodes of hypoglycemia Morbid obesity Allergic rhinitis Anxiety Asthma Surgical History History of endometrial ablation Hx of tubal ligation Hx of section Hx laparoscopic cholecystectomy History of appendectomy H/O cleft lip repair Family History Maternal Grandfather Alzheimer disease Paternal Grandmother Diabetes Mother No problems noted. Father No problems noted. Brother No problems noted. Brother No problems noted. Brother No problems noted. Sister High cholesterol Son No problems noted. Daughter No problems noted. Other Mental health disorder Social History Housing: House Alcohol intake: never Patient Tobacco Use Status: Never used Tobacco Second Hand Smoke Exposure: No Current occupational status: employed Cognitive needs: No Hearing needs: No Vision needs: No Female Reproductive History Menstrual Date of last menstrual period: 12/05/24 (stopping) Questionnaire PHQ-9 Over the last 2 weeks, how often have you been bothered by any of the following problems? 1. Little interest or pleasure in doing things: not at all 2. Feeling down, depressed, or hopeless: not at all 3. Trouble falling or staying asleep, or sleeping too much: several days 4. Feeling tired or having little energy: several days 5. Poor appetite or overeating: several days 6. Feeling bad about yourself - or that you are a failure or have let yourself or your family down: several days 7. Trouble concentrating on things, such as reading the newspaper or watching television: not at all 8. Moving or speaking so slowly that other people could have noticed. Or the opposite - being so fidgety or restless that you have been moving around a lot more than usual: not at all 9. Thoughts that you would be better off or of hurting yourself in some way: not at all Total score: 4 Depression Screening Interpretation: Negative Depression Screening Done: Yes 35991 - PHQ-9 Billing: Yes Source: Developed by Drs. Irving Armstrong, Marla Fall, Jeremy Méndez and colleagues, with an educational zach from [employer]. Thrive Questionnaire Date Thrive assessed: 02/03/25 I am a: Patient What is your living situation today?: I have a steady place to live Within the past 12 months, did the food you bought not last and you didn't have the money to get more?: Never true Within the past 12 months, did you worry whether your food would run out before you got money to buy more?: Never true Do you have trouble paying for medicines?: No Do you have trouble getting transportation to medical appointments?: No Do you have trouble paying your heating and electricity bill?: No Do you have trouble taking care of your child, family member or friend?: No Do you have trouble with day-to-day activities such as bathing, preparing meals, shopping, managing finances, etc.?: No Are you currently unemployed and looking for a job?: No Are you interested in more education?: No Please select the resources that you would like help with: None Currently or been in a relationship where the following occur: No concerns reported THRIVE Score: 0 AUDIT C Alcohol Use Questionnaire (AUDIT-C) 1. How often do you have a drink containing alcohol?: Monthly or less 2. How many drinks containing alcohol do you have on a typical day when you are drinking?: 1 or 2 3. How often do you have six or more drinks on one occasion?: Never Total Score: 1 Score Reviewed/Action Taken: Yes ABRAHAM-7 AMB Questionnaire ABRAHAM-7 Date ABRAHAM - 7 assessed: 02/03/25 Feeling nervous, anxious, or on edge: 1 = Several days Not being able to stop or control worryin = Several days Worrying too much about different things: 1 = Several days Trouble relaxin = Not at all Being so restless that it is hard to sit still: 0 = Not at all Becoming easily annoyed or irritable: 0 = Not at all Feeling afraid as if something awful might happen: 0 = Not at all Total ABRAHAM-7 score (0-4 normal; 5-9 mild; 10-14 moderate; 15-21 severe): 3 Source: Developed by Drs. Irving Armstrong, Marla Fall, Jeremy Méndez and colleagues, with an educational zach from [employer]. ABRAHAM-7 Assessment Billing ABRAHAM-7 Assessment Tool: ABRAHAM-7 Assessment 71176 Review of Systems Const Denies fever(s), Denies headache(s) and Denies weakness Eyes Denies change in vision ENT Denies dizziness, Denies headache(s), Denies nasal congestion and Denies nasal discharge Card Denies chest pain, Denies lightheadedness, Denies palpitations and Denies dyspnea Resp Denies cough, Denies dyspnea and Denies wheezing GI Denies abdominal pain, Denies change in bowel habits and Denies heartburn Denies urinary frequency, Denies dysuria and Denies urinary urgency Musc Reports as per HPI and Reports radiating pain into limb Skin/Breast Details: has Eczema , currently being seen by Zachary at [facility] dermatology, currently on Dupixent injected every other week Reports as per HPI, Denies breast pain and Denies breast mass Neuro Denies dizziness, Denies headache(s) and Denies weakness Psych Reports no additional complaints Endo Details: Patient has been experiencing frequent episodes of low blood sugar levels, usually in the morning. Patient states that she has been eating 3 meals a day but it mostly consists of white bread, cereal. Denies polydipsia, Denies polyuria and Denies palpitations Rainer/Lymph Denies easy bruising Aller/Immun Denies wheezing Physical exam (Primary Care) Vital Signs: Last Vital Signs Temp 98.2 F 02/03/25 12:04 Pulse 94 02/03/25 12:04 Resp 16 02/03/25 12:04 BP 124/90 H 02/03/25 12:04 Pulse Ox 99 02/03/25 12:04 Oxygen Delivery Method Room Air 02/03/25 12:04 BMI result Body Mass Index 48.9 BMI Assessment/Plan discussion: High BMI High, discussed plan: lifestyle, weight reduction, dietary and physical activity Tobacco/Smoking Status: Tobacco use Status Tobacco use date assessed 02/03/25 02/03/25 12:07 Patient Tobacco Use Status Never used Tobacco 02/03/25 12:07 PHQ-9: PHQ-9 Score PHQ-9: Total score 4 02/07/25 22:36 Depression Screening Interpretation: Negative Thrive Assessment: Date of Thrive Assessment Date Thrive assessed 02/03/25 02/03/25 12:07 Currently or been in a relationship where the following occur: No concerns reported Const Other: Alert oriented x3, no acute cardiorespiratory distress, morbidly obese, normal gait Orientation/consciousness: patient oriented x3 HENMT Ears: external ears normal, TM's normal bilaterally and EAC's normal General nose exam: Normal external nose present Face and sinus: Yes face symmetric Mouth: Normal oral and palatal mucosa present, oropharynx normal and moist mucous membranes Eyes General: appearance normal, both eyes and all related structures Neck Other: Supple, no lymphadenopathy palpated, thyroid gland nonpalpable Neck: Yes no meningeal signs Chest Chest palpation & inspection: normal inspection of the chest Breast/axilla inspection: Other (Large breasts) Breast/axilla palpation: normal palpation of the breasts and normal palpation of the axillae Resp Other: Clear to auscultation bilaterally Cardio Other: S1-S2 present regular rate and rhythm GI Other: Obese abdomen, soft, nontender, no mass palpated General: Yes deferred (Currently sees [facility]) Skin General skin exam: no rashes or lesions noted Neuro General: patient oriented x3, gait normal, moves all extremities, Normal light touch and pain sensation, no meningeal signs and no focal motor deficits Extrem General: Yes full ROM, Yes no joint enlargement, Yes no clubbing, cyanosis or edema and Yes normal gait Psych Appearance: grossly normal and well kempt Mental Status: mental status grossly normal Speech and movement: Normal speech and movement present Affect: normal affect Results Reviewed Results Reviewed: Name: Crys Medel Age/Sex: 29/F [facility] 1995 [id number] [id number] Attend Dr: Raquel Rojas Re12/31/24 Status: DEP [facility] Disch: SPEC : [id number] EMERALD: 12/31/24 STATUS: COMP REQ : [id number] RECD: 12/31/[address]: Raquel Rojas COMP: 01/06/25 ENTERED: 12/31/[address]: Cathy Rios MD ORDERED: Vitamin B1 Test Result Flag Reference Vitamin B1 7 L 8-30 nmol/L Coding Level of Care Code Est Pt Prev Care 18-39y(25946) Diagnoses Annual visit for general adult medical examination with abnormal findings Z00.01 Morbid obesity E66.01 Vitamin D deficiency E55.9 Vitamin B1 deficiency E51.9 Migraine without aura and without status migrainosus, not intractable G43.009 Status migrainosus presence: without status migrainosus Intractability: not intractable Mild intermittent asthma without complication J45.20 Asthma severity: mild Asthma persistence: intermittent Asthma complication type: uncomplicated Psoriasis L40.9 Additional Codes ABRAHAM-7 Assessment Billing - ABRAHAM-7 Assessment Tool: ABRAHAM-7 Assessment 48799 ([id number]) PHQ-9 - 03405 - PHQ-9 Billing: Yes ([id number]) Assessment & Plan Assessment & Plan (1) Annual visit for general adult medical examination with abnormal findings: Code(s): Z00.01 - Encounter for general adult medical examination with abnormal findings Plan: Will check appropriate labs. Recommended dental visit every 6 months and regular eye exams, at least every 2 years. Take adequate calcium in diet and vitamin-D 3 at 2000 IU per cap once a day, in addition to weight-bearing exercises to help maintain good muscle tone and weight control. Instructed to do self-breast exam, and recommended to get yearly mammogram, starting at age 40. Up-to-date with her cervical cancer screening. Vaccine, advised to get pneumococcal vaccines (2) Morbid obesity: Code(s): E66.01 - Morbid (severe) obesity due to excess calories Category: Medical Plan: Advised to check with her insurance procedure in loss medications covered. The meantime advised to adhere to healthy eating habits, stop currently. Soda and simple carbs. Get a 30 minutes moderate intensity exercise daily. Referred to inpatient care manager rn for dietary guidance (3) Vitamin D deficiency: Code(s): E55.9 - Vitamin D deficiency, unspecified Category: Medical Plan: Ordered vitamin-D level check (4) Vitamin B1 deficiency: Code(s): E51.9 - Thiamine deficiency, unspecified Category: Medical Plan: Check vitamin B1 level (5) Migraine without aura: Code(s): G43.009 - Migraine without aura, not intractable, without status migrainosus Category: Medical Qualifiers: Status migrainosus presence: without status migrainosus Intractability: not intractable Qualified Code(s): G43.009 - Migraine without aura, not intractable, without status migrainosus Plan: 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, referred to [facility] for further evaluation (6) Asthma: Code(s): J45.909 - Unspecified asthma, uncomplicated Category: Medical Qualifiers: Asthma severity: mild Asthma persistence: intermittent Asthma complication type: uncomplicated Qualified Code(s): J45.20 - Mild intermittent asthma, uncomplicated Plan: Continue albuterol inhaler used as needed, reminded to get advised to get vaccinated against, does together present time (7) Psoriasis: Comment: Currently on Dupixent followed at [facility] dermatology Code(s): L40.9 - Psoriasis, unspecified Category: Medical Plan: Followed by [facility] dermatology, currently on Dupixent Plan Patient was informed and verbally consented to the use of an ambient scribe for clinic note documentation during this visit. 5. Restless Leg Syndrome The patient's restless leg syndrome is managed with gabapentin 300 mg at night, providing some relief. Continued medication use is advised. 6. Vitamin D Deficiency The patient is on vitamin D supplements due to deficiency. Continued supplementation is recommended. 7. Vitamin B1 Deficiency The patient is on vitamin B1 supplements due to deficiency. Continued supplementation is recommended. 8. Overweight The patient has been advised to contact [facility] regarding weight loss medication prerequisites and is attempting dietary changes independently. Referral to a inpatient care manager rn is recommended for further guidance. Orders: Orders Vitamin B1 02/03/25 E51.9 - Thiamine deficiency, unspecified, E55.9 - Vitamin D deficiency, unspecified, E66.01 - Morbid (severe) obesity due to excess calories, Z13.1 - Encounter for screening for diabetes mellitus, Z13.220 - Encounter for screening for lipoid disorders Lipid Panel 02/03/25 E51.9 - Thiamine deficiency, unspecified, E55.9 - Vitamin D deficiency, unspecified, E66.01 - Morbid (severe) obesity due to excess calories, Z13.1 - Encounter for screening for diabetes mellitus, Z13.220 - Encounter for screening for lipoid disorders Glucose Fasting 02/03/25 E51.9 - Thiamine deficiency, unspecified, E55.9 - Vitamin D deficiency, unspecified, E66.01 - Morbid (severe) obesity due to excess calories, Z13.1 - Encounter for screening for diabetes mellitus, Z13.220 - Encounter for screening for lipoid disorders Vitamin D 25-OH Total 02/03/25 E51.9 - Thiamine deficiency, unspecified, E55.9 - Vitamin D deficiency, unspecified, E66.01 - Morbid (severe) obesity due to excess calories, Z13.1 - Encounter for screening for diabetes mellitus, Z13.220 - Encounter for screening for lipoid disorders
--- OUTSIDE RECORDS SUMMARY | 2025-02-03 13:55 | XMS_ITS | Encounter Summary ---
Author Organization [facility] Address [address] [place] [address] Phone Care Team Providers Care Camera Technician Name Role Phone Mariam Mcgarry NP Primary Care Provider [phone] Encounter Details Date Type Department Care Team (Late st Contact Info) Description 04/28/2014 Documentation [facility] [place] Family Medicine [address] [place] [address] Family Medicine, Physician [address] [place] [address] Social History Tobacco Use Types Packs/Day Years [...] on filedocumented in this encounter Care Teams Camera Technician Relationship Specialty Start Date End Date Mariam Mcgarry NP PCP - General 01/04/17 documented as of this encounter
--- OUTSIDE RECORDS SUMMARY | 2025-02-03 13:55 | XMS_ITS | Encounter Summary ---
Author Organization [facility] Address [address] [place] [address] Phone Care Team Providers Care Verifying Specialist Name Role Phone Mariam Mcagrry NP Primary Care Provider [phone] Encounter Details Date Type Department Care Team (Late st Contact Info) Description 10/19/2009 Documentation [facility] [place] Family Medicine [address] [place] [address] Family Medicine, Physician [address] [place] [address] Social History Tobacco Use Types Packs/Day Years [...] on filedocumented in this encounter Care Teams Verifying Specialist Relationship Specialty Start Date End Date Mariam Mcgarry NP PCP - General 01/04/17 documented as of this encounter
--- OUTSIDE RECORDS SUMMARY | 2025-02-03 13:55 | XMS_ITS | Encounter Summary ---
Author Organization [facility] Address [address] [place] [address] Phone Care Team Providers Care Oil Heater Installer Name Role Phone Mariam Mcgarry NP Primary Care Provider [phone] Encounter Details Date Type Department Care Team (Late st Contact Info) Description 03/22/[address] [facility] [place] Family Medicine [address] [place] [address] Family Medicine, Physician [address] [place] [address] Social History Tobacco Use Types Packs/Day Years [...] on filedocumented in this encounter Care Teams Oil Heater Installer Relationship Specialty Start Date End Date Mariam Mcgarry NP PCP - General 01/04/17 documented as of this encounter
--- OUTSIDE RECORDS SUMMARY | 2025-02-03 13:55 | XMS_ITS | Encounter Summary ---
Author Organization [facility] Address [address] [place] [address] Phone Care Team Providers Care Needle Loom Tender Name Role Phone Mariam Mcgarry NP Primary Care Provider [phone] Encounter Details Date Type Department Care Team (Late st Contact Info) Description 03/15/2015 Documentation [facility] [place] Family Medicine [address] [place] [address] Family Medicine, Physician [address] [place] [address] Social History Tobacco Use Types Packs/Day Years [...] on filedocumented in this encounter Care Teams Needle Loom Tender Relationship Specialty Start Date End Date Mariam Mcgarry NP PCP - General 01/04/17 documented as of this encounter
--- OUTSIDE RECORDS SUMMARY | 2025-02-03 13:55 | XMS_ITS | Encounter Summary ---
Author Organization [facility] Address [address] [place] [address] Phone Care Team Providers Care Sanding Machine Operator Name Role Phone Mariam Mcgarry NP Primary Care Provider [phone] Encounter Details Date Type Department Care Team (Late st Contact Info) Description 01/10/2017 Conversion Encounter [facility] - [address] [address] Social History Tobacco Use Types Packs/Day Years [...] on filedocumented in this encounter Care Teams Sanding Machine Operator Relationship Specialty Start Date End Date Mariam Mcgarry NP PCP - General 01/04/17 documented as of this encounter
--- OUTSIDE RECORDS SUMMARY | 2025-02-03 13:55 | XMS_ITS | Encounter Summary ---
Author Organization [facility] Address [address] [place] [address] Phone Care Team Providers Care Trade Clerk Name Role Phone Mariam Mcgarry NP Primary Care Provider [phone] Encounter Details Date Type Department Care Team (Late st Contact Info) Description 08/03/2009 Documentation [facility] [place] [address] [place] [address] Family Medicine, Physician [address] [place] [address] Social History Tobacco Use Types Packs/Day Years [...] on filedocumented in this encounter Care Teams Trade Clerk Relationship Specialty Start Date End Date Mariam Mcgarry NP PCP - General 01/04/17 documented as of this encounter
--- OUTSIDE RECORDS SUMMARY | 2025-02-03 13:55 | XMS_ITS | Encounter Summary ---
Author Organization [facility] Address [address] [place] [address] Phone Care Team Providers Care Trial Court Judge Name Role Phone Mariam Mcgarry NP Primary Care Provider Encounter Details Date Type Department Care Team (Late st Contact Info) Description 08/23/2009 Documentation [facility] [place] Family Medicine [address] [place] [address] Family Medicine, Physician [address] [place] [address] Social History Tobacco Use Types Packs/Day Years [...] on filedocumented in this encounter Care Teams Trial Court Judge Relationship Specialty Start Date End Date Mariam Mcgarry NP PCP - General 01/04/17 documented as of this encounter
--- OUTSIDE RECORDS SUMMARY | 2025-02-03 13:55 | XMS_ITS | Encounter Summary ---
Author Organization [facility] Address [address] [place] [address] Phone Care Team Providers Care Wheat Farmer Name Role Phone Mariam Mcgarry NP Primary Care Provider [phone] Encounter Details Date Type Department Care Team (Late st Contact Info) Description 10/22/2012 Documentation [facility] [place] [address] [place] [address] Family Medicine, Physician [address] [place] [address] Social History Tobacco Use Types Packs/Day Years [...] on filedocumented in this encounter Care Teams Wheat Farmer Relationship Specialty Start Date End Date Mariam Mcgarry NP PCP - General 01/04/17 documented as of this encounter
--- OUTSIDE RECORDS SUMMARY | 2025-02-03 13:55 | XMS_ITS | Encounter Summary ---
Author Organization [facility] Address [address] [place] [address] Phone Care Team Providers Care Poker Prop Player Name Role Phone Mariam Mcgarry NP Primary Care Provider [phone] Encounter Details Date Type Department Care Team (Late st Contact Info) Description 02/29/2016 Documentation [facility] [place] [address] [place] [address] Family Medicine, Physician [address] [place] [address] Social History Tobacco Use Types Packs/Day Years [...] on filedocumented in this encounter Care Teams Poker Prop Player Relationship Specialty Start Date End Date Mariam Mcgarry NP PCP - General 01/04/17 documented as of this encounter
--- OUTSIDE RECORDS SUMMARY | 2025-02-03 13:55 | XMS_ITS | Encounter Summary ---
Author Organization [facility] Address [address] [place] [address] Phone Care Team Providers Care Cosmetologist Apprentice Name Role Phone Mariam Mcgarry NP Primary Care Provider [phone] Encounter Details Date Type Department Care Team (Late st Contact Info) Description 09/17/2016 Documentation [facility] [place] [address] [place] [address] Family Medicine, Physician [address] [place] [address] Social History Tobacco Use Types Packs/Day Years [...] on filedocumented in this encounter Care Teams Cosmetologist Apprentice Relationship Specialty Start Date End Date Mariam Mcgarry NP PCP - General 01/04/17 documented as of this encounter
--- OUTSIDE RECORDS SUMMARY | 2025-02-03 13:55 | XMS_ITS | Clinical Summary ---
Author Organization [employer] Address [address] [place] [address] Care Team Providers Care Sales Marketing Manager Name Role Phone Unavailable Primary Care [...] Description 12/24/2024 8:00 AM EDT Office Visit [facility]ULT [facility] [address] [place] [address] Roni Mercado DDS 11/16/2024 9:30 AM EDT Office Visit [facility] [address] [place] [address] Niesha Booth DMD from Last 3 Months Social History Tobacco [...] Upcoming Encounters Date Type Department Care Team (Late st Contact Info) Description 02/15/2025 9:30 AM EDT Office Visit [facility] [address] [place] [address] Steve Birch [address] [place] [address] Health Maintenance Due Date Last Done Comments Depression Screening 1997 HIV Screening 1997 Lipid Panel 1997 SDOH Screening 1997 Disability Screening 1997 Alcohol/Substance Use Screening 2009 Family Planning (PISQ) 2012 Hepatitis C Screening 12/11/2015 Pneumococcal Vaccine: Pediatrics (0 to 5 Years) and At-Risk Patients (6 to 49) Years (1 of 2 - PCV) 2016 Pap Smear 2018 COVID-19 Vaccine (3 - season) 2025 09/06/2020, 08/15/2020 Influenza Vaccine (#1) 2025 2, 04/06/2021, 04/06/2021, Additional history exists Dental Oral [...] MOLAR TOOTH Routine 11/16/2024 9:30 AM EDT from Last 3 Months Insurance # 2 [place] [address] DENTAL-[facility] MEDICAID STAND ADULT DENTAL - HSN FULL (MEDICAID) #2 JEANNINE JOHNSON [id number]
--- OUTSIDE RECORDS SUMMARY | 2025-02-03 13:55 | XMS_ITS | Encounter Summary ---
Author Organization [facility] Address [address] [place] [address] Phone Care Team Providers Care Windows 7 Deployment Lead Name Role Phone Mariam Mcgarry NP Primary Care Provider [phone] Encounter Details Date Type Department Care Team (Late st Contact Info) Description 09/08/2014 Documentation [facility] [place] [address] [place] [address] Family Medicine, Physician [address] [place] [address] Social History Tobacco Use Types Packs/Day Years [...] on filedocumented in this encounter Care Teams Windows 7 Deployment Lead Relationship Specialty Start Date End Date Mariam Mcgarry NP PCP - General 01/04/17 documented as of this encounter
--- OUTSIDE RECORDS SUMMARY | 2025-02-03 13:55 | XMS_ITS | Encounter Summary ---
Author Organization [facility] Address [address] [place] [address] Phone Care Team Providers Care Process Architect Name Role Phone Mariam Mcgarry NP Primary Care Provider [phone] Encounter Details Date Type Department Care Team (Late st Contact Info) Description 12/15/2014 Documentation [facility] [place] [address] [place] [address] Family Medicine, Physician [address] [place] [address] Social History Tobacco Use Types Packs/Day Years [...] on filedocumented in this encounter Care Teams Process Architect Relationship Specialty Start Date End Date Mariam Mcgarry NP PCP - General 01/04/17 documented as of this encounter
--- OUTSIDE RECORDS SUMMARY | 2025-02-03 13:55 | XMS_ITS | Encounter Summary ---
Author Organization [facility] Address [address] [place] [address] Phone Care Team Providers Care Economics Consultant Name Role Phone Mariam Mcgarry NP Primary Care Provider [phone] Encounter Details Date Type Department Care Team (Late st Contact Info) Description 09/18/2016 Documentation [facility] [place] [address] [place] [address] Family Medicine, Physician [address] [place] [address] Social History Tobacco Use Types Packs/Day Years [...] filedocumented in this encounter Care Teams Economics Consultant Relationship Specialty Start Date End Date Mariam Mcgarry NP PCP - General 01/04/17 documented as of this encounter
--- OUTSIDE RECORDS SUMMARY | 2025-02-03 13:55 | XMS_ITS | Encounter Summary ---
Author Organization [facility] Address [address] [place] [address] Phone Care Team Providers Care Industrial Waste Treatment Technician Name Role Phone Mariam Mcgarry NP Primary Care Provider [phone] Encounter Details Date Type Department Care Team (Late st Contact Info) Description 09/22/2012 Documentation [facility] [place] Medicine [address] [place] [address] Family Medicine, Physician [address] [place] [address] Social History Tobacco Use Types Packs/Day Years [...] on filedocumented in this encounter Care Teams Industrial Waste Treatment Technician Relationship Specialty Start Date End Date Mariam Mcgarry NP PCP - General 01/04/17 documented as of this encounter
--- OUTSIDE RECORDS SUMMARY | 2025-02-03 13:55 | XMS_ITS | Encounter Summary ---
Author Organization [facility] Address [address] [place] [address] Phone Care Team Providers Care Division Engineer Name Role Phone Mariam Mcgarry NP Primary Care Provider [phone] Encounter Details Date Type Department Care Team (Late st Contact Info) Description 07/17/2013 Documentation [facility] [place] [address] [place] [address] Family Medicine, Physician [address] [place] [address] Social History Tobacco Use Types Packs/Day Years [...] on filedocumented in this encounter Care Teams Division Engineer Relationship Specialty Start Date End Date Mariam Mcgarry NP PCP - General 01/04/17 documented as of this encounter
--- OUTSIDE RECORDS SUMMARY | 2025-02-03 13:55 | XMS_ITS | Clinical Summary ---
Author Organization [facility] Address [address] [place] [address] Phone Care Team Providers Care Log Haul Chain Feeder Name Role Phone Cathy Rios MD Primary [...] STATUS SCREENING (Once After 26 Yrs) 12/11/2023 INFLUENZA VACCINE (#1) 2024 , 03/04/2019, 07/04/2018, Additional history exists COVID-19 VACCINE ( season) 2025 09/06/2020, 08/15/2020 Adult Td,Tdap Booster 11/23/2031 11/22/2021 [...] topic Medical Devices Not on file Insurance [facility] [place] [address] [place] [address] [employer] [facility] [place] [address] [place] [address] [employer] [facility] [employer] Care Teams Log Haul Chain Feeder Relationship Specialty Start Date End Date Cathy Rios MD [address] [place] [address] PCP - General Internal Medicine 08/26/21 Additional Source Comments The information contained in this document represents components of the legal health record. It is not the complete legal health record.[facility]
--- OUTSIDE RECORDS SUMMARY | 2025-02-03 13:55 | XMS_ITS | Clinical Summary ---
Author Organization [facility] Address [address] [place] [address] Care Team Providers Care Engineering Aide Name Role Phone Unavailable Primary Care Provider [...] Cervical Cancer Screening: P ap Smear 2018 Depression Screening 05/27/2024 COVID-19 Vaccine ( - 2023-2 5 season) 2025 Influenza Vaccine (#1) 2025 HIB Vaccines Aged [...]
--- OUTSIDE RECORDS SUMMARY | 2025-02-03 13:55 | XMS_ITS | Encounter Summary ---
Author Organization [facility] Address [address] [place] [address] Phone Care Team Providers Care Production Engineer Name Role Phone Mariam Mcgarry NP Primary Care Provider [phone] Encounter Details Date Type Department Care Team (Late st Contact Info) Description 09/19/2012 Documentation [place] Family Medicine [address] [place] [address] Family Medicine, Physician [address] [place] [address] Social History Tobacco Use Types Packs/Day Years [...] on filedocumented in this encounter Care Teams Production Engineer Relationship Specialty Start Date End Date Mariam Mcgarry NP PCP - General 01/04/17 documented as of this encounter
--- OUTSIDE RECORDS SUMMARY | 2025-02-03 13:55 | XMS_ITS | Encounter Summary ---
Author Organization [facility] Address [address] [place] [address] Phone Care Team Providers Care Blood Bank Business Manager Name Role Phone Mariam Mcgarry NP Primary Care Provider [phone] Encounter Details Date Type Department Care Team (Late st Contact Info) Description 08/03/2009 Documentation [facility] [place] [address] [place] [address] Family Medicine, Physician [address] [place] [address] Social History Tobacco Use Types Packs/Day Years [...] on filedocumented in this encounter Care Teams Blood Bank Business Manager Relationship Specialty Start Date End Date Mariam Mcgarry NP PCP - General 01/04/17 documented as of this encounter
--- OUTSIDE RECORDS SUMMARY | 2025-02-03 13:55 | XMS_ITS | Encounter Summary ---
Author Organization [facility] Address [address] [place] [address] Phone Care Team Providers Care Beading Machine Operator Name Role Phone Mariam Mcgarry NP Primary Care Provider [phone] Encounter Details Date Type Department Care Team (Late st Contact Info) Description 05/24/2014 Documentation [facility] [place] Medicine [address] [place] [address] Family Medicine, Physician [address] [place] [address] Social History Tobacco Use Types Packs/Day Years [...] on filedocumented in this encounter Care Teams Beading Machine Operator Relationship Specialty Start Date End Date Mariam Mcgarry NP PCP - General 01/04/17 documented as of this encounter
--- OUTSIDE RECORDS SUMMARY | 2025-02-03 13:55 | XMS_ITS | Clinical Summary ---
Author Organization [facility] Address [address] [place] [address] Phone Care Team Providers Care Deckhand Sponge Boat Name Role Phone ZeferinoMariam BRIANNE Primary Care Provider Immunizations Immunization Administration Dates Next Due DTaP [...] 80 05/05/2016 12:00 AM EST Temperature 36.6 C (97.9 F) 05/05/2016 12:00 AM EST Respiratory Rate - - Oxygen Saturation 98% [...] 06/22/1999, Additional history exists Influenza Vaccines (#1) 2024 03/28/20 16, 03/14/2015, 04/07/2014, Additional history exists COVID-19 Vaccine ( season) 2025 Hepatitis B Vaccines Completed 06/08/1998, 01/10/1998, 1997 HIB Vaccines Completed 06/22/1999, 07/25, 06/08/1998, Additional history exists IPV Vaccines Completed 02/11/2002, 11/1998, 06/08/1998, Additional history exists MMR Vaccines Completed 02/11/2002, 03/02/1999 Varicella Vaccines Completed 12/17/2007, 03/02/1999 HPV Vaccines Completed 12/20/2010, 01/27, 12/19/2009 Hepatitis A Vaccines Completed 12/30/2013, 12/21/19 11 Meningococcal Vaccine Completed 12/31/2014, 009 Men B Vaccine Aged Out No longer leslie martines based on patient's age to complete this topic Pneumococcal Vaccine Aged Out No long er eligible based on patient's age to complete this topic Procedures * Due to [place] Octoshape law, this organization might not be sharing sensitive test results. Procedure Name Priority Date/Time Associated Diagnosis Comments CHLAMYDIA AND GONORRHEA, AMPLIFIED Routine 01/02/2016 2:15 PM EDT from Last 3 Months or Most Recently Relevant to Health Maintenance Results * Due to [place] Oct[place]ape law, this organization might not be sharing sensitive test results. * Chlamydia and Gonorrhoea, Amplified (01/02/2016 2:15 PM EDT) URINE GC AMP PROBE NEGATIVE [facility] Comment: No Neisseria Gonorrhoeae RNA detected in this patient's sample (REFERENCE RANGE/NORMAL VALUE: NOT DETECTED) NOTE: This test uses dinker-mediated amplification method to detect rRNA from C.Trachomatis [...] without risk of sexual abuse. Consult the [facility] if needed. Contact phone number . Therapeutic failure or success cannot be determined with the Aptima Combo2 assay since nucleic acid may persist following appropriate antimicrobial therapy. The Centers for Disease Control and Prevention (CDC) recommends confirmatory retesting using culture or a different nucleic acid amplification test when positive results occur, if indicated. Testing performed or reported by [facility], a Service of [facility], [facility] [place] [address] CLIA [id number] Justin Queen MD, PhD, Residential Finish Carpenter URINE CHLAMYDIA AMP PROBE NEGATIVE [facility] Comment: No Chlamydia Trachomatis RNA detected in this patient's sample (REFERENCE RANGE/NORMAL VALUE: NOT DETECTED) 01/02/2016 2:15 PM EDT [facility] - 01/02/2016 2:15 PM EDT URINE CHLAMYDIA GC AMP PROBE us Mariam Mcgarry NP LAB MICROBIOLOGY - GENERAL ORDER BETH Final Result [facility] [address] [place] [address], from Last 3 Months or Most Recently Relevant to Health Maintenance Care Teams Deckhand Sponge Boat Relationship Specialty Start Date End Date Mariam Mcgarry NP PCP - General 01/04/17
--- OUTSIDE RECORDS SUMMARY | 2025-02-03 13:55 | XMS_ITS | Encounter Summary ---
Author Organization [facility] Address [address] [place] [address] Phone Care Team Providers Care Mechanic Recovery Name Role Phone Mariam Mcgarry NP Primary Care Provider Encounter Details Date Type Department Care Team (Late st Contact Info) Description 04/20/2014 Documentation [facility] [place] [address] [place] [address] Family Medicine, Physician [address] [place] [address] Social History Tobacco Use Types Packs/Day Years [...] on filedocumented in this encounter Care Teams Mechanic Recovery Relationship Specialty Start Date End Date Mariam Mcgarry NP PCP - General 01/04/17 documented as of this encounter
== END 2025-02-03 12:42 | disposition home or self-care (01) ==
LOC: HO.HMCC 10:56
PROVIDERS: PCP Internal Medicine; Visit Provider Internal Medicine
DX: Z00.01 Encounter for general adult medical examination with abnormal findings (principal); E55.9 Vitamin D deficiency, unspecified; E66.01 Morbid (severe) obesity due to excess calories; Z68.42 Body mass index [BMI] 45.0-49.9, adult; E51.9 Thiamine deficiency, unspecified; G43.009 Migraine without aura, not intractable, without status migrainosus; J45.20 Mild intermittent asthma, uncomplicated; L40.9 Psoriasis, unspecified

== ENCOUNTER → 2025-02-03 10:55 | Outpatient (BNVA) | payer OTHER, SELFPAY | PROVIDERS: PCP Internal Medicine; Visit Provider Internal Medicine | DX: Z00.01 Encounter for general adult medical examination with abnormal findings (principal); E66.01 Morbid (severe) obesity due to excess calories; Z68.42 Body mass index [BMI] 45.0-49.9, adult; E55.9 Vitamin D deficiency, unspecified; E51.9 Thiamine deficiency, unspecified; G43.009 Migraine without aura, not intractable, without status migrainosus; J45.20 Mild intermittent asthma, uncomplicated; L40.9 Psoriasis, unspecified; G25.81 Restless legs syndrome; Z13.31 Encounter for screening for depression; Z13.39 Encounter for screening examination for other mental health and behavioral disorders | CPT/HCPCS: 96127; 99395 ==

== ENCOUNTER 2025-02-10 06:09 | Outpatient (REF) | payer OTHER, SELFPAY ==
[2025-02-10 08:14] LABS: Cholesterol 179 mg/dL (<200); HDL Cholesterol 42 mg/dL (>40); Triglycerides 113 mg/dL (<150)
== END 2025-02-10 06:10 | disposition home or self-care (01) ==
LOC: HO.LAB 06:09
PROVIDERS: PCP Internal Medicine; Visit Provider Internal Medicine
DX: Z13.220 Encounter for screening for lipoid disorders (principal); Z13.1 Encounter for screening for diabetes mellitus; E55.9 Vitamin D deficiency, unspecified; E51.9 Thiamine deficiency, unspecified; E66.01 Morbid (severe) obesity due to excess calories
CPT/HCPCS: 36415; 80061; 82306; 82947; 84425